=== PATIENT | male | born 1960 | race Caucasian/White ===

== ENCOUNTER 2016-12-09 09:50 | Emergency (ER) | payer MEDICARE ==
[2016-12-09] MEDS ORDERED: Albuterol/Ipratropium NEB.SOL* Albuterol 2.5 MG/Ipratropium 0.5 MG 3 ML INH ONE (10:18)
[2016-12-09 10:56] LABS: Hematocrit 47 % (42-52); Hemoglobin 15.7 g/dl (14.0-18.0); Mean Corpuscular HGB Conc 33 g/dl (31-36); Mean Corpuscular Hemoglobin 30 pg (27-31); Mean Corpuscular Volume 90 fL (80-94); Mean Platelet Volume 10 um3 (7.4-10.4); Red Blood Count 5.21 10^6/ul (4.0-5.4); Red Cell Distribution Width 14 % (10.5-15); White Blood Count 10.7 10^3/ul (3.5-10.8)
[2016-12-09 11:14] LABS: Albumin 4.1 g/dL (3.2-5.2); BUN/Creatinine Ratio 16.5 (8-20); Calcium 8.7 mg/dL (8.6-10.3); EGFR African American 111.2 (>60); EGFR Non-African American 86.5 (>60); Globulin 2.7 g/dL (2-4); Total Bilirubin 0.5 mg/dL (0.2-1.0); Total Protein 6.8 g/dL (6.4-8.9)
--- NOTE | 2016-12-09 11:17 | RAD ---
INDICATION: Cough COMPARISON: May 12, 2016 TECHNIQUE: PA and lateral dual-energy views were obtained. FINDINGS: Bones/Soft Tissues: There are no acute bony findings. Cardiomediastinal: The cardiomediastinal silhouette is normal. Lungs: There are no infiltrates. Pleura: There are no pleural effusions. Other: None IMPRESSION: NO ACTIVE DISEASE
[2016-12-09] MEDS ORDERED: Azithromycin TAB* 250 MG PO ONE (11:35)
[2016-12-09] MEDS ORDERED: predniSONE TAB* 20 MG PO ONE (11:35)
--- NOTE | 2016-12-09 11:35 | ED ---
Respiratory - HPI Summary HPI Summary: 56M w/ PMh of COPD presents with productive cough for 4 days. He states that he does not take any medication for his copd. He is prescribed an inhaler but he does like to use it. He admits to right sided chest pain and shortness of breath. He denies any fevers. He denies any muscle aches, abdominal pain, n/v/ d, or sinus congestion. He states that no one else is sick. - History of Current Complaint Chief Complaint: EDUpperRespComplaint Stated Complaint: SHORT OF BREATH, CHEST PAIN Time Seen by Provider: 12/09/16 10:10 Pain Intensity: 4 Sputum Amount: Moderate - Allergy/Home Medications Allergies/Adverse Reactions: Allergies Allergy/AdvReac Type Severity Reaction Status Date / Time No Known Allergies Allergy Verified 12/09/16 09:56 PMH/Surg Hx/FS Hx/Imm Hx Endocrine/Hematology History: Denies: Hx Diabetes, Hx Thyroid Disease Cardiovascular History: Reports: Hx Hypertension Respiratory History: Reports: Hx Chronic Bronchitis, Hx Chronic Obstructive Pulmonary Disease (COPD), Hx Pneumonia, Hx Seasonal Allergies, Hx Sleep Apnea - [place]-non compliant with CPAP Denies: Hx Asthma GI History: Reports: Hx Gastroesophageal Reflux Disease Denies: Hx Ulcer History: Denies: Hx Dialysis, Hx Renal Disease Musculoskeletal History: Reports: Hx Arthritis, Hx Back Problems - SPINAL INJ AND SURGICAL REPAIR 2011, Hx Orthopedic Injury, Hx Scoliosis, Hx Tendonitis - Elbow currently Sensory History: Reports: Hx Contacts or Glasses Opthamlomology History: Reports: Hx Contacts or Glasses Neurological History: Reports: Hx Spinal Cord Injury Psychiatric History: Reports: Hx Anxiety, Hx Depression, Hx Bipolar Disorder, Hx Suicide Attempt Denies: Hx of Violent Episodes Against Others - Surgical History Surgery Procedure, Year, and Place: fractured back; partial rotator cuff tear R shoulder; hernias (umbilical and groin) Hx Anesthesia Reactions: No Infectious Disease History: No Infectious Disease History: Reports: History Other Infectious Disease - Spinal Meningitis at age 24yrs Denies: Hx Hepatitis, Hx Human Immunodeficiency Virus (HIV), Traveled Outside the [place] in Last 30 Days - Family History Known Family History: Positive: None, Other - NONCONTRIBUTORY Negative: Cardiac Disease Family History: Diverticulitis(mother) - Social History Alcohol Use: Rare Hx Substance Use: No Substance Use Type: Reports: None Hx Tobacco Use: Yes Smoking Status (MU): Former Smoker Type: Cigarettes Have You Smoked in the Last Year: No Review of Systems Negative: Fever Positive: Chest Pain - right sided Positive: Shortness Of Breath, Cough Negative: Abdominal Pain, Vomiting, Diarrhea, Nausea All Other Systems Reviewed And Are Negative: Yes Physical Exam Triage Information Reviewed: Yes Vital Signs On Initial Exam: Initial Vitals Temp Pulse Resp BP Pulse Ox 98.5 F 80 18 133/79 99 12/09/16 09:56 12/09/16 09:56 12/09/16 09:56 12/09/16 09:56 12/09/16 09:56 Vital Signs Reviewed: Yes Appearance: Positive: Well-Appearing Skin: Positive: Warm, Dry Head/Face: Positive: Normal Head/Face Inspection Eyes: Positive: Normal, Conjunctiva Clear ENT: Positive: Normal ENT inspection, Pharynx normal, TMs normal Neck: Positive: Supple, Nontender, No Lymphadenopathy Respiratory/Lung Sounds: Positive: Breath Sounds Present, Wheezes - present, Other - no sign of consolidation on exam, reproducible chest pain on right side of chest Cardiovascular: Positive: Normal, RRR - Rodolfo Coma Scale Coma Scale Total: 15 Diagnostics - Vital Signs Vital Signs Temp Pulse Resp BP Pulse Ox 12/09/16 10:30 79 13 97 12/09/16 10:29 78 96 12/09/16 09:56 98.5 F 80 18 133/79 99 - Laboratory Lab Results: Lab Results 12/09/16 12/09/16 12/09/16 Range/Units 10:43 10:43 10:43 WBC 10.7 (3.5-10.8) 10^3/ul RBC 5.21 (4.0-5.4) 10^6/ul Hgb 15.7 (14.0-18.0) g/dl Hct 47 (42-52) % MCV 90 (80-94) fL MCH 30 (27-31) pg MCHC 33 (31-36) g/dl RDW 14 (10.5-15) % Plt Count 254 (150-450) 10^3/ul MPV 10 (7.4-10.4) um3 Neut % (Auto) 56.1 (38-83) % Lymph % (Auto) 29.0 (25-47) % [place] % (Auto) 11.9 H (1-9) % Eos % (Auto) 2.2 (0-6) % Baso % (Auto) 0.8 (0-2) % Absolute Neuts (auto) 6.0 (1.5-7.7) 10^3/ul Absolute Lymphs (auto) 3.1 (1.0-4.8) 10^3/ul Absolute Monos (auto) 1.3 H (0-0.8) 10^3/ul Absolute Eos (auto) 0.2 (0-0.6) 10^3/ul Absolute Basos (auto) 0.1 (0-0.2) 10^3/ul Absolute Nucleated RBC 0 10^3/ul Nucleated RBC % 0 D-Dimer, Quantitative (Less Than 230) ng/mL Sodium 136 (133-145) mmol/L Potassium 4.0 (3.5-5.0) mmol/L Chloride 104 (101-111) mmol/L Carbon Dioxide 25 (22-32) mmol/L Anion Gap 7 (2-11) mmol/L BUN 15 (6-24) mg/dL Creatinine 0.91 (0.67-1.17) mg/dL Est GFR ( Amer) 111.2 (>60) Est GFR (Non-Af Amer) 86.5 (>60) BUN/Creatinine Ratio 16.5 (8-20) Glucose 103 H (70-100) mg/dL Lactic Acid 1.4 (0.5-2.0) mmol/L Calcium 8.7 (8.6-10.3) mg/dL Total Bilirubin 0.50 (0.2-1.0) mg/dL AST 17 (13-39) U/L ALT 26 (7-52) U/L Alkaline Phosphatase 47 (34-104) U/L Troponin I 0.00 (<0.04) ng/mL Total Protein 6.8 (6.4-8.9) g/dL Albumin 4.1 (3.2-5.2) g/dL Globulin 2.7 (2-4) g/dL Albumin/Globulin Ratio 1.5 (1-3) // Range/Units 10:43 WBC (3.5-10.8) 10^3/ul RBC (4.0-5.4) 10^6/ul Hgb (14.0-18.0) g/dl Hct (42-52) % MCV (80-94) fL MCH (27-31) pg MCHC (31-36) g/dl RDW (10.5-15) % Plt Count (150-450) 10^3/ul MPV (7.4-10.4) um3 Neut % (Auto) (38-83) % Lymph % (Auto) (25-47) % [place] % (Auto) (1-9) % Eos % (Auto) (0-6) % Baso % (Auto) (0-2) % Absolute Neuts (auto) (1.5-7.7) 10^3/ul Absolute Lymphs (auto) (1.0-4.8) 10^3/ul Absolute Monos (auto) (0-0.8) 10^3/ul Absolute Eos (auto) (0-0.6) 10^3/ul Absolute Basos (auto) (0-0.2) 10^3/ul Absolute Nucleated RBC 10^3/ul Nucleated RBC % D-Dimer, Quantitative < 200 (Less Than 230) ng/mL Sodium (133-145) mmol/L Potassium (3.5-5.0) mmol/L Chloride (101-111) mmol/L Carbon Dioxide (22-32) mmol/L Anion Gap (2-11) mmol/L BUN (6-24) mg/dL Creatinine (0.67-1.17) mg/dL Est GFR ( Amer) (>60) Est GFR (Non-Af Amer) (>60) BUN/Creatinine Ratio (8-20) Glucose (70-100) mg/dL Lactic Acid (0.5-2.0) mmol/L Calcium (8.6-10.3) mg/dL Total Bilirubin (0.2-1.0) mg/dL AST (13-39) U/L ALT (7-52) U/L Alkaline Phosphatase (34-104) U/L Troponin I (<0.04) ng/mL Total Protein (6.4-8.9) g/dL Albumin (3.2-5.2) g/dL Globulin (2-4) g/dL Albumin/Globulin Ratio (1-3) Result Diagrams: 12/09/16 10:43 12/09/16 10:43 Lab Statement: Any lab studies that have been ordered have been reviewed, and results considered in the medical decision making process. - Radiology chest Xray Interpretation: No Acute Changes Radiology Interpretation Completed By: Radiologist - EKG No standard instances Cardiac Rate: NL EKG Rhythm: Sinus Rhythm ST Segment: Normal Re-Evaluation - Re-Evaluation First Eval Change: Improved Comment: lungs CTA s/p breathing treatment Disposition - Course Course Of Treatment: 56M presents with sough, right sided chest pain, and SOB. He does not take anything for his COPD. no fevers. on exam chest tenderness to right side is reproducible, lungs wheezes present. on chest xray normal. EKG normal. labs normal. d-dimer normal. will treat as COPD exacerbation, will treat with prednisone and zpack and told to use inhalers that patient has at home. patient understands and agrees with plan - Differential Dx - Cardiopulmonary Differential Diagnoses - Cardiopulmonary: Bronchitis, Exacerbation Of COPD, Lower Resp Infection, Pulmonary Embolism - Diagnoses Provider Diagnoses: COPD exacerbation, Bronchitis Discharge - Discharge Plan Condition: Good Disposition: HOME Prescriptions: Azithromycin TAB* [Zithromax TAB (Z-VINI) 250 mg #6 tabs] 250 mg PO DAILY #4 tab predniSONE TAB* [Deltasone TAB*] 40 mg PO DAILY #4 tab Patient Education Materials: Acute Bronchitis (ED) Referrals: Guzman Bowman MD [Primary Care Provider] - Additional Instructions: Use inhaler every 4 hours for cough and wheezing Take steroid once a day for 5 days, first dose given in ED Take antibiotic first dose starting tomorrow for 4 days Take Tylenol or ibuprofen for pain every 6 hours Return to ED if develop severe shortness of breath, worsening chest pain, or any new or worsening symptoms
[2016-12-09 12:30] VITALS: BP 116/63
== END 2016-12-09 12:29 | disposition home or self-care (01) ==
LOC: ED 09:50
DX: J44.1 Chronic obstructive pulmonary disease with (acute) exacerbation (principal); J40 Bronchitis, not specified as acute or chronic; R05 Cough; R06.02 Shortness of breath; Z87.891 Personal history of nicotine dependence; R07.9 Chest pain, unspecified
CPT/HCPCS: 36415; 71020; 80053; 83605; 84484; 85025; 85379; 93005; 94640; 94760; 99283; A9270-GY

== ENCOUNTER 2017-06-22 11:31 | Inpatient (IN) | payer MEDICARE ==
[2017-06-22 15:11] LABS: Hematocrit 46 % (42-52); Hemoglobin 15.6 g/dl (14.0-18.0); Mean Corpuscular HGB Conc 34 g/dl (31-36); Mean Corpuscular Hemoglobin 31 pg (27-31); Mean Corpuscular Volume 92 fL (80-94); Red Blood Count 4.99 10^6/ul (4.0-5.4); Red Cell Distribution Width 14 % (10.5-15); White Blood Count 17.2 10^3/ul (3.5-10.8)
[2017-06-22 15:15] LABS: Comments Flag Yes
[2017-06-22 15:16] LABS: Add Diff/Slide Review? Slide Review Added
[2017-06-22 15:17] LABS: Troponin I 0.01 ng/mL (<0.04)
[2017-06-22] MEDS ORDERED: NS 0.9% 1000 ML* 1,000 ML IV ONE (15:59)
[2017-06-22 16:00] LABS: ALT 20 U/L (7-52); AST 15 U/L (13-39); Albumin 4.3 g/dL (3.2-5.2); Alkaline Phosphatase 46 U/L (34-104); Amylase 23 U/L (29-103); Anion Gap 9 mmol/L (2-11); BUN/Creatinine Ratio 15.4 (8-20); Blood Urea Nitrogen 14 mg/dL (6-24); C Reactive Protein 142.61 mg/L (< 5.00); CO2 Carbon Dioxide 23 mmol/L (22-32); Calcium 8.9 mg/dL (8.6-10.3); Chloride 105 mmol/L (101-111); EGFR African American 111.2 (>60); EGFR Non-African American 86.5 (>60); Globulin 2.9 g/dL (2-4); Glucose 87 mg/dL (70-100); Lipase < 10 U/L (11.0-82.0); Sodium 137 mmol/L (133-145); Total Protein 7.2 g/dL (6.4-8.9)
[2017-06-22] MEDS ORDERED: Morphine INJ* 4 MG/ML 1 ML CARPUJECT IV ONE ×2 (16:00→21:45)
[2017-06-22 16:33] LABS: Immature Granulocytes 14 % (0-9); Metamyelocytes % 5 % (0-2); Neutrophil % 74 % (38-83); RBC Morphology Normal (Normal)
--- NOTE | 2017-06-22 16:38 | RAD ---
INDICATION: Cough. COMPARISON: Comparison is made with a prior chest x-ray study from December 09, 2016. TECHNIQUE: A portable view of the chest was obtained. FINDINGS: Cardiac and mediastinal contours appear to be within normal limits. The lungs are underinflated. There are linear densities at both lung bases suggestive of atelectasis. No pleural effusion is seen. IMPRESSION: LINEAR DENSITIES AT BOTH LUNG BASES MOST CONSISTENT WITH ATELECTASIS.
[2017-06-22 16:48] LABS: Mean Platelet Volume 11 um3 (7.4-10.4)
[2017-06-22 17:12] LABS: Urine Bilirubin Negative (Negative); Urine Glucose Negative (Negative); Urine Nitrite Negative (Negative)
[2017-06-22] MEDS ORDERED: Iohexol 300* (CONTRAST) 10 ML SDV IV ONE (17:18)
--- NOTE | 2017-06-22 18:48 | RAD ---
INDICATION: Left upper quadrant abdominal pain. COMPARISON: Comparison is made with a prior CT of the abdomen and pelvis from June 16, 2016. TECHNIQUE: A CT scan of the abdomen and pelvis was performed with intravenous and oral contrast following intravenous injection of 150 ml of Omnipaque 300 nonionic contrast. Contiguous axial sections were obtained from the lung bases through the symphysis pubis. Images were reconstructed in the coronal and sagittal planes. FINDINGS: There is mild dependent bilateral lower lobe subsegmental atelectasis. No pleural effusion is present. The liver and spleen are normal in size. The liver is decreased in attenuation consistent with fatty infiltration. No significant focal abnormality is seen. No calcified gallstones are noted. The pancreas appears to be within normal limits. The kidneys and adrenal glands are normal in size. No hydronephrosis is seen. No significant focal renal abnormality is seen. The aorta is normal in caliber and demonstrates homogeneous contrast opacification. There is a filter within the infrarenal portion of the inferior vena cava. Several of the struts may extend beyond the confines of the wall of the vena cava and appear unchanged. No significant enlarged retroperitoneal lymph nodes are seen. The stomach, small and large bowel appear nondistended. The appendix is not well visualized. There is mild to moderate descending and sigmoid diverticulosis. There is thickening of the wall of the descending colon with stranding in the adjacent mesenteric fat and a small amount of adjacent free intraperitoneal fluid. These findings are nonspecific although most consistent with diverticulitis. No abscess is seen. No free intraperitoneal air is seen. The patient is status post posterior spinal fusion from the T12 through the L4 levels stabilizing a fracture of the L2 vertebral body which is unchanged from the prior study. IMPRESSION: 1. THICKENING OF THE WALL OF THE DESCENDING COLON, INTERSTITIAL STRANDING IN THE ADJACENT MESENTERIC FAT AND FREE INTRAPERINEAL FLUID NONSPECIFIC ALTHOUGH MOST CONSISTENT WITH DIVERTICULITIS. RECOMMEND CLINICAL CORRELATION. 2. HEPATIC STEATOSIS.
--- NOTE | 2017-06-22 19:17 | ED ---
Everett Benson SooYoung, scribed for Tony Carmen MD on 06/22/17 at 1602 . Abdominal Pain/Male - HPI Summary HPI Summary: A 56 y/o M presents to ED with L-sided abd pain onset approx 3 days ago. Pain rated as 8 out of 10. Associated sx: fever, nonproductive cough, diarrhea. Denies: n/v, dysuria. Aggravating factors: deep breaths, ambulation. Pert PMHx: diverticulitis. Former smoker, no ETOH. SHx: back, hernia, shoulder. NKA. - History of Current Complaint Chief Complaint: EDAbdPain Stated Complaint: LT SIDED PAIN/SOB Time Seen by Provider: 06/22/17 15:56 Hx Obtained From: Patient Onset/Duration: Gradual Onset, Lasting Days, Still Present Timing: Constant Severity Initially: Moderate Severity Currently: Severe Pain Intensity: 10 Pain Scale Used: 0-10 Numeric Location: Discrete At: LUQ, Discrete At: LLQ Aggravating Factor(s): Movement - ambulation, Deep Breaths Associated Signs And Symptoms: Positive: Fever, Cough, Diarrhea. Negative: Urinary Symptoms, Nausea, Vomiting - Allergies/Home Medications Allergies/Adverse Reactions: Allergies Allergy/AdvReac Type Severity Reaction Status Date / Time No Known Allergies Allergy Verified 12/09/16 09:56 PMH/Surg Hx/FS Hx/Imm Hx Previously Healthy: No Endocrine/Hematology History: Denies: Hx Diabetes, Hx Thyroid Disease Cardiovascular History: Reports: Hx Hypertension Respiratory History: Reports: Hx Chronic Bronchitis, Hx Chronic Obstructive Pulmonary Disease (COPD), Hx Pneumonia, Hx Seasonal Allergies, Hx Sleep Apnea - [place]-non compliant with CPAP Denies: Hx Asthma GI History: Reports: Hx Gastroesophageal Reflux Disease Denies: Hx Ulcer History: Denies: Hx Dialysis, Hx Renal Disease Musculoskeletal History: Reports: Hx Arthritis, Hx Back Problems - SPINAL INJ AND SURGICAL REPAIR 2011, Hx Orthopedic Injury, Hx Scoliosis, Hx Tendonitis - Elbow currently Sensory History: Reports: Hx Contacts or Glasses Opthamlomology History: Reports: Hx Contacts or Glasses Neurological History: Reports: Hx Spinal Cord Injury Psychiatric History: Reports: Hx Anxiety, Hx Depression, Hx Bipolar Disorder, Hx Suicide Attempt Denies: Hx of Violent Episodes Against Others - Surgical History Surgery Procedure, Year, and Place: fractured back; partial rotator cuff tear R shoulder; hernias (umbilical and groin) Hx Anesthesia Reactions: No Infectious Disease History: Yes Infectious Disease History: Reports: History Other Infectious Disease - Spinal Meningitis at age 24yrs Denies: Hx Hepatitis, Hx Human Immunodeficiency Virus (HIV), Traveled Outside the [place] in Last 30 Days - Family History Known Family History: Positive: Other Negative: Cardiac Disease Family History: Diverticulitis(mother) - Social History Occupation: Employed Full-time, Disabled Lives: With Family Alcohol Use: Rare Hx Substance Use: No Substance Use Type: Reports: None Hx Tobacco Use: Yes Smoking Status (MU): Former Smoker Type: Cigarettes Have You Smoked in the Last Year: No Review of Systems Positive: Fever Positive: Cough Positive: Abdominal Pain, Diarrhea. Negative: Vomiting, Nausea Negative: dysuria All Other Systems Reviewed And Are Negative: Yes Physical Exam Triage Information Reviewed: Yes Vital Signs On Initial Exam: Initial Vitals Temp Pulse Resp BP Pulse Ox 98.8 F 92 20 144/77 97 06/22/17 11:43 06/22/17 11:43 06/22/17 11:43 06/22/17 11:43 06/22/17 11:43 Vital Signs Reviewed: Yes Appearance: Positive: Pain Distress Skin: Positive: Warm, Skin Color Reflects Adequate Perfusion Head/Face: Positive: Normal Head/Face Inspection ENT: Positive: Normal ENT inspection Neck: Positive: Nontender Respiratory/Lung Sounds: Positive: Clear to Auscultation, Breath Sounds Present Cardiovascular: Positive: RRR. Negative: Murmur Abdomen Description: Positive: Other: - tender in the left upper abdomen. Negative: Distended Musculoskeletal: Positive: Strength/ROM Intact Neurological: Positive: Sensory/Motor Intact, Alert, Oriented to Person Place, Time, CN Intact II-III Psychiatric: Positive: Normal - Rodolfo Coma Scale Best Eye Response: 4 - Spontaneous Best Motor Response: 6 - Obeys Commands Best Verbal Response: 5 - Oriented Diagnostics - Vital Signs Vital Signs Temp Pulse Resp BP Pulse Ox 06/22/17 15:16 99.5 F 76 20 134/69 99 06/22/17 12:40 100.6 F 84 24 127/68 95 06/22/17 11:43 98.8 F 92 20 144/77 97 - Laboratory Lab Results: Lab Results 06/22/17 06/22/17 Range/Units 14:28 14:28 WBC 17.2 H (3.5-10.8) 10^3/ul RBC 4.99 (4.0-5.4) 10^6/ul Hgb 15.6 (14.0-18.0) g/dl Hct 46 (42-52) % MCV 92 (80-94) fL MCH 31 (27-31) pg MCHC 34 (31-36) g/dl RDW 14 (10.5-15) % Plt Count Pending MPV Pending Neut % (Auto) 77.8 (38-83) % Lymph % (Auto) 12.6 L (25-47) % [place] % (Auto) 7.9 (1-9) % Eos % (Auto) 1.1 (0-6) % Baso % (Auto) 0.6 (0-2) % Absolute Neuts (auto) 13.4 H (1.5-7.7) 10^3/ul Absolute Lymphs (auto) 2.2 (1.0-4.8) 10^3/ul Absolute Monos (auto) 1.4 H (0-0.8) 10^3/ul Absolute Eos (auto) 0.2 (0-0.6) 10^3/ul Absolute Basos (auto) 0.1 (0-0.2) 10^3/ul Absolute Nucleated RBC 0.02 10^3/ul Nucleated RBC % 0.1 Sodium Pending Potassium Pending Chloride Pending Carbon Dioxide Pending Anion Gap Pending BUN Pending Creatinine Pending Est GFR ( Amer) Pending Est GFR (Non-Af Amer) Pending BUN/Creatinine Ratio Pending Glucose Pending Calcium Pending Total Bilirubin Pending AST Pending ALT Pending Alkaline Phosphatase Pending Troponin I 0.01 (<0.04) ng/mL C-Reactive Protein Pending Total Protein Pending Albumin Pending Globulin Pending Albumin/Globulin Ratio Pending Amylase Pending Lipase Pending Result Diagrams: 06/22/17 14:28 06/22/17 14:28 Lab Statement: Any lab studies that have been ordered have been reviewed, and results considered in the medical decision making process. - Radiology CXR Xray Interpretation: Positive (See Comments) - IMPRESSION: LINEAR DENSITIES AT BOTH LUNG BASES MOST CONSISTENT WITH ATELECTASIS. ED physician has reviewed this radiology report and agrees. Radiology Interpretation Completed By: Radiologist - CT A/P CT CT Interpretation: Positive (See Comments) - IMPRESSION: 1. THICKENING OF THE WALL OF THE DESCENDING COLON, INTERSTITIAL STRANDING IN THE ADJACENT MESENTERIC FAT AND FREE INTRAPERINEAL FLUID NONSPECIFIC ALTHOUGH MOST CONSISTENT WITH DIVERTICULITIS. RECOMMEND CLINICAL CORRELATION. 2. HEPATIC STEATOSIS. ED physician has reviewed this radiology report and agrees. CT Interpretation Completed By: Radiologist Abdominal Pain Fem Course/Dx - Course Course Of Treatment: A 56 y/o M presents with L-sided abd pain onset approx 3 days ago. Pain rated as 8/10. Associated sx: fever, nonproductive cough, diarrhea. Denies: n/v, dysuria. Aggravating factors: deep breaths, ambulation. Pert PMHx: diverticulitis. Former smoker, no ETOH. Bloodwork is without significant abnormality except WBC is 17.2, CRP is 142.61. UA results are negative for infection. CXR shows "LINEAR DENSITIES AT BOTH LUNG BASES MOST CONSISTENT WITH ATELECTASIS." A/P CT shows "1. THICKENING OF THE WALL OF THE DESCENDING COLON, INTERSTITIAL STRANDING IN THE ADJACENT MESENTERIC FAT AND FREE INTRAPERINEAL FLUID NONSPECIFIC ALTHOUGH MOST CONSISTENT WITH DIVERTICULITIS. RECOMMEND CLINICAL CORRELATION. 2. HEPATIC STEATOSIS.". Dr Cotter consulted from general surgery and I have asked him to see and consult on the patient. The hospitalists has been told about this admission as well and they will see the patient. - Diagnoses Provider Diagnoses: Diverticulitis large intestine - Provider Notifications Discussed Care Of Patient With: Maikol Saavedra - surgery Time Discussed With Above Provider: 19:00 Discharge - Discharge Plan Condition: Good Disposition: ADMITTED TO [facility] The documentation as recorded by the Everett hoyos SooYoung accurately reflects the service I personally performed and the decisions made by me, Tony Carmen MD.
[2017-06-22] MEDS ORDERED: Ondansetron INJ* 2 MG/ML VIAL IV PRN (21:41)
[2017-06-22] MEDS ORDERED: Morphine INJ* 4 MG/ML 1 ML CARPUJECT IV PRN (21:41)
[2017-06-22] MEDS ORDERED: Zosyn per Pharmacy* NOTE FOLLOW UP SCH (22:00)
[2017-06-22] MEDS: Enoxaparin(*) 40 MG/0.4 ML SYR SUBCUT SCH (22:40)
[2017-06-22] MEDS: NS 0.9% 1000 ML* 1,000 ML IV SCH (22:41)
--- NOTE | 2017-06-22 23:41 | HP ---
CC: Dr. Bowman* HISTORY AND PHYSICAL: DATE OF ADMISSION: 06/22/17 PRIMARY CARE PROVIDER: Dr. Bowman. ADMITTING PROVIDER: ASHLEY Frausto SUPERVISING PHYSICIAN: Dr. Ac Cortez* (dictated by ASHLEY Frausto). CHIEF COMPLAINT: Abdominal pain. HISTORY OF PRESENT ILLNESS: This is a 56-year-old gentleman with a history of obstructive sleep apnea, COPD, hypertension, chronic back pain, GERD, and restless leg syndrome who presented to the emergency department with complaints of abdominal pain. The patient states that his symptoms have been persistent for the last 3 days or so. He reports that most of his pain is left-sided and worse with deep inspiration. He thinks that he has been running fevers at home. He has chronic diarrhea, which has not changed over the last few days. His appetite has remained good and no nausea or vomiting. The patient was admitted with acute diverticulitis almost exactly 1 year ago. The patient denies any other recent illness, denies chest pain, shortness of breath, cough. PAST MEDICAL HISTORY: 1. COPD. 2. Obstructive sleep apnea, compliant with CPAP. 3. Hypertension. 4. Chronic back pain. 5. GERD. 6. Restless leg syndrome. PAST SURGICAL HISTORY: 1. Rotator cuff repair. 2. Inguinal hernia repair. 3. Umbilical hernia repair. HOME MEDICATIONS: 1. Cymbalta 20 mg p.o. twice daily. 2. Gabapentin 300 mg p.o. at bedtime. 3. Requip 1 mg p.o. at bedtime. SOCIAL HISTORY: The patient lives at home with his . He quit smoking in 1996, unsure of how many pack-year history he has. He reports only rare alcohol consumption. REVIEW OF SYSTEMS: As noted above in HPI, all other systems reviewed and negative. PHYSICAL EXAMINATION GENERAL: This is a middle aged gentleman, in no acute distress, lying in hospital stretcher, accompanied by his . VITAL SIGNS: Temperature 98.8 degrees Fahrenheit, pulse 92 beats per minute, respiratory rate 20 per minute, oxygen saturation 97% on room air, blood pressure 144/77 mmHg. Of note, maximum temperature in the emergency department was 100.6 degrees Fahrenheit. HEENT: Head is normocephalic, atraumatic. Mucous membranes are pink and moist. RESPIRATORY: Lungs are clear to auscultation without wheezes, crackles or rhonchi. CARDIOVASCULAR: Heart has a regular rate and rhythm without murmurs, rubs, or gallops. ABDOMEN: Abdomen is soft, tender to palpation on the left side. No peritoneal signs. EXTREMITIES: No edema noted. PSYCH: The patient is alert and appropriately oriented. LABORATORY EVALUATION: CBC shows white blood cell count of 17,200, hemoglobin of 15.6 g/dL, and a platelet count of 245,000. Comprehensive metabolic panel is unremarkable with sodium of 137 mmol/L, potassium of 4.0, bicarb of 23, BUN 14, creatinine 0.9. Total bilirubin and transaminases within normal limits. CRP significantly elevated at 142. Troponin 0.01. Urinalysis is negative. IMAGING: Chest x-ray shows no acute process. CT of the abdomen and pelvis shows thickening of the wall of the descending colon as well as interstitial stranding in the adjacent mesenteric fat and free intraperitoneal fluid most consistent with diverticulitis, also noted hepatic steatosis. ASSESSMENT AND PLAN: This is a 56-year-old gentleman with history of chronic obstructive pulmonary disease, obstructive sleep apnea, hypertension, chronic back pain, gastroesophageal reflux disease, and restless leg syndrome, presented with complaints of abdominal pain and evidence of acute diverticulitis on CT. 1. Acute diverticulitis - this is patient's second hospital admission for acute diverticulitis. The first was almost exactly one year ago. He has been started on Zosyn in the emergency room, which will be continued at this time. No evidence of associated perforation or abscess. There is no free fluid appreciated within the abdominal cavity. No peritoneal signs appreciated on exam. In addition to antibiotics, the patient will be treated with p.r.n. analgesics and antiemetics. We will start with liquid diet and advance as tolerated. 2. Chronic obstructive pulmonary disease - no acute exacerbation and the patient's symptom seems to be mild. 3. Obstructive sleep apnea. Continue CPAP. 4. Hypertension. The patient has stopped all of his home anti-hypertensive medications I believe under the guidance of his primary care provider and appears to be normotensive in the emergency department. We will continue to monitor this. 5. Chronic back pain. The patient states that he does not take any home opiate medications. 6. Gastroesophageal reflux disease. 7. Restless leg syndrome. 8. Code status. The patient is full code. 9. DVT prophylaxis. The patient will be started on subcu Lovenox. 10. Healthcare proxy is his . DISPOSITION: The patient is being admitted to inpatient status with acute diverticulitis with an expected length of stay to be greater than 2 midnights. ASHLEY FRAUSTO [id number]/[facility] #: [id number]
[2017-06-23] MEDS: HYDROmorphone INJ* 1 MG/ML CARPUJECT SYRINGE IV PRN ×3 (00:52→06:25)
[2017-06-23] MEDS: ZOSYN 3.375 GM Q8H per EXTENDED INFUSION IVPB SCH ×6 (03:16→17:48)
[2017-06-23 07:07] LABS: Hematocrit 43 % (42-52); Hemoglobin 14.3 g/dl (14.0-18.0); Mean Corpuscular HGB Conc 34 g/dl (31-36); Mean Corpuscular Hemoglobin 31 pg (27-31); Mean Corpuscular Volume 92 fL (80-94); Mean Platelet Volume 11 um3 (7.4-10.4); Red Blood Count 4.62 10^6/ul (4.0-5.4); Red Cell Distribution Width 14 % (10.5-15); White Blood Count 13.7 10^3/ul (3.5-10.8)
[2017-06-23 07:21] LABS: BUN/Creatinine Ratio 13.8 (8-20); Calcium 8.2 mg/dL (8.6-10.3); EGFR African American 107.2 (>60); EGFR Non-African American 83.3 (>60); Potassium 4.1 mmol/L (3.5-5.0)
[2017-06-23] MEDS: DULoxetine DR CAP* 20 MG CAP.DR PO SCH ×2 (08:38→22:10)
[2017-06-23] MEDS ORDERED: Influenza VAC *QUAD* 2017-18* 0.5 ML SYRINGE IM ONE (09:00)
--- NOTE | 2017-06-23 14:10 | PN ---
Subjective Date of Service: 06/23/17 Interval History: Patient seen and examined at bedside. Patient states pain only slightly improved. Patient denies nausea. Leukocytosis improved and afebrile for last 12 hours. Tolerating full liquid without nausea or worsening pain. Family History: Unchanged from Admission Social History: Unchanged from Admission Past Medical History: Unchanged from Admission Objective Active Medications: Duloxetine HCl (Cymbalta Cap*) 20 mg PO BID YAIMA Enoxaparin Sodium (Lovenox(*)) 40 mg SUBCUT Q24H YAIMA Hydromorphone HCl (Dilaudid Inj*) 0.5 mg IV Q2H PRN Sodium Chloride (Ns 0.9% 1000 Ml*) 1,000 mls @ 75 mls/hr IV PER RATE YAIMA Piperacillin Sod/Tazobactam (Sod 3.375 gm/ Sodium Chloride) 100 mls @ 25 mls/ hr IVPB Q8H YAIMA Ondansetron HCl (Zofran Inj*) 4 mg IV Q4H PRN Pharmacy Consult (Zosyn Per Pharmacy*) 1 note FOLLOW UP .ZOSYN PER PHARMACY YAIMA Ropinirole HCl (Requip Tab*) 1 mg PO QPM [facility] 06/23/17 06/23/17 06/23/17 07:25 08:00 09:18 Temperature 97.1 F Pulse Rate 72 Respiratory 18 16 16 Rate Blood Pressure 105/57 (mmHg) O2 Sat by Pulse 94 Oximetry Oxygen Devices in Use Now: None Appearance: sitting up in bed, NAD Eyes: No Scleral Icterus, PERRLA Ears/Nose/Mouth/Throat: NL Teeth, Lips, Gums, Mucous Membranes Moist Neck: NL Appearance and Movements; NL JVP Respiratory: Symmetrical Chest Expansion and Respiratory Effort, Clear to Auscultation Cardiovascular: NL Sounds; No Murmurs; No JVD Abdominal: - - slightly distended, pain to LUQ, +BS Extremities: No Edema Skin: No Rash or Ulcers Neurological: Alert and Oriented x 3, NL Muscle Strength and Tone Lines/Tubes/Other Access: Clean, Dry and Intact Peripheral IV Nutrition: Taking PO's Result Diagrams: 06/23/17 05:52 06/23/17 05:52 Assess/Plan/Problems-Billing Patient is a 56 y/o M w/ PMH significant for COPD, HTN, back pain, restless leg syndrome who presented to the ER w/ the c/o of abdominal pain and fever found to have leukocytosis and diverticulitis. - Patient Problems (1) Diverticulitis Comment: Pain only slightly improved. Maintain on full liquids and advance in AM to low residue. Continue IV Zosyn. Leukocytosis improved but not resolved. Repeat in AM. (2) COPD (chronic obstructive pulmonary disease) Comment: Currently not in acute exacerbation. (3) Hypertension Comment: Normotensive off medications. (4) SALVADOR (obstructive sleep apnea) Comment: Home CPAP (5) Restless leg syndrome Comment: Continue Requip. (6) DVT prophylaxis Comment: SQ Lovenox (7) Full code status Status and Disposition: Inpatient for diverticultis. Plan to advance to regular diet in AM and d/c home if tolerated.
[2017-06-23] MEDS: NS 0.9% 1000 ML* 1,000 ML IV SCH (17:48)
[2017-06-23] MEDS ORDERED: rOPINIRole TAB* 1 MG PO SCH (18:00)
[2017-06-23] MEDS: Enoxaparin(*) 40 MG/0.4 ML SYR SUBCUT SCH (22:10)
[2017-06-24] MEDS: ZOSYN 3.375 GM Q8H per EXTENDED INFUSION IVPB SCH ×4 (03:13→11:08)
[2017-06-24] MEDS: DULoxetine DR CAP* 20 MG CAP.DR PO SCH (08:34)
[2017-06-24 09:39] LABS: Hematocrit 45 % (42-52); Hemoglobin 15.1 g/dl (14.0-18.0); Mean Corpuscular HGB Conc 34 g/dl (31-36); Mean Corpuscular Hemoglobin 31 pg (27-31); Mean Corpuscular Volume 93 fL (80-94); Mean Platelet Volume 10 um3 (7.4-10.4); Red Blood Count 4.84 10^6/ul (4.0-5.4); Red Cell Distribution Width 13 % (10.5-15); White Blood Count 7.9 10^3/ul (3.5-10.8)
[2017-06-24] MEDS ORDERED: metroNIDAZOLE TAB* 250 MG PO SCH (14:00)
--- NOTE | 2017-06-24 14:55 | DS ---
CC: Dr. Bowman DISCHARGE SUMMARY: DATE OF ADMISSION: 06/22/17 DATE OF DISCHARGE: 06/24/17 PRIMARY CARE PHYSICIAN: Dr. Bowman. ADMITTING PROVIDER: ASHLEY Zelaya DISCHARGING PROVIDER: Virginie Haney DO PRIMARY DISCHARGE DIAGNOSIS: Acute diverticulitis. SECONDARY DIAGNOSES: 1. Chronic obstructive pulmonary disease. 2. Obstructive sleep apnea. 3. Hypertension. 4. Chronic back pain. 5. Gastroesophageal reflux disease. 6. Restless leg syndrome. MEDICATIONS: New medications at discharge: 1. Metronidazole 500 mg p.o. t.i.d. for 5 more days. 2. Ciprofloxacin 500 mg b.i.d. p.o. for 5 more days. 3. Oxycodone 5 mg p.o. q.4 p.r.n. pain. REVIEW OF SYSTEMS: A 14-point review of systems on the day of discharge was negative except for mil d left lower quadrant discomfort. He has been afebrile and tolerating a full diet. PHYSICAL EXAMINATION: Temperature 98.1 degrees, heart rate 61, respiratory rate 16, pulse ox 92% on room air, blood pressure 130/69. General: Alert, well appearing, no distress. HEENT: Pupils equ al, round, and reactive to light. No nystagmus. Moist mucosa. Neck: No lymphadenopathy. Thyroid nonpalpable. No JVP. Chest: Regular rate and rhythm. No murmurs. PMI nondisplaced. Lungs are clear bilaterally. Abdomen: Obese, nondistended, mildly tender to deep palpation in the left lower quadrant without guarding or rebound. Liver nonpalpable. Bowel sounds normoactive. Extremities: No lower extremity edema. Pulses 2+ bilaterally. Strength 5+ throughout. LABORATORY DATA: Labs at discharge; white blood cell 7.9, hemoglobin 15.1, platelets 159,000. HOSPITAL COURSE BY PROBLEM: 1. Acute diverticulitis. He was unable to take p.o. at admission, so he was admitted for IV antibi otics. He was treated with pip-tazo for 2 days and on 06/24/17, his diet was able to be advanced to a full diet, which he tolerated well. His pain was controlled, so he was discharged on p.o. antibio tics with ciprofloxacin and metronidazole for a total of 7-day course and oxycodone p.r.n. pain. 2. Hypertension. Blood pressure was well controlled during this admission on his home medications. No changes were made. 3. Obstructive sleep apnea. Continue CPAP at home settings. 4. Restless leg syndrome. He was continued on his home dose of ropinirole. 5. Disposition. The patient is full code and instructed to follow up with his primary care jh crowell upon discharge. TIME SPENT: Greater than 60 minutes were spent on this hospital discharge with greater than half of the time spent [facility] with the patient. [id number]/[facility] #: [id number]
[2017-06-24 16:18] VITALS: BP 122/68
[2017-06-24] MEDS ORDERED: Ciprofloxacin TAB* 500 MG PO SCH (21:00)
== END 2017-06-24 17:10 | disposition home or self-care (01) | DRG 392 ==
LOC: ED 11:31 → SSU 19:22
PROVIDERS: ADMIT Hospitalist; ATTEND Internal Medicine
PROC: 3E0234Z Introduction of Serum, Toxoid and Vaccine into Muscle, Percutaneous Approach (ICD-10-PCS; principal; 2017-06-23)
DX: K57.32 Diverticulitis of large intestine without perforation or abscess without bleeding (principal); M41.9 Scoliosis, unspecified; I10 Essential (primary) hypertension; J44.9 Chronic obstructive pulmonary disease, unspecified; G47.33 Obstructive sleep apnea (adult) (pediatric); G89.29 Other chronic pain; M54.9 Dorsalgia, unspecified; K21.9 Gastro-esophageal reflux disease without esophagitis; G25.81 Restless legs syndrome; K52.9 Noninfective gastroenteritis and colitis, unspecified; J30.2 Other seasonal allergic rhinitis; M19.90 Unspecified osteoarthritis, unspecified site; F41.9 Anxiety disorder, unspecified; R40.2362 Coma scale, best motor response, obeys commands, at arrival to emergency department; R40.2142 Coma scale, eyes open, spontaneous, at arrival to emergency department; R40.2252 Coma scale, best verbal response, oriented, at arrival to emergency department; F31.9 Bipolar disorder, unspecified; Z91.5 Personal history of self-harm; Z91.19 Patient's noncompliance with other medical treatment and regimen; Z87.01 Personal history of pneumonia (recurrent); Z87.891 Personal history of nicotine dependence; Z83.79 Family history of other diseases of the digestive system; Z23 Encounter for immunization
CPT/HCPCS: 36415; 71010; 74177; 80048; 80053; 81003; 82150; 83690; 84484; 85025; 86140; 87040; 90686; A9270-GY; J1170; J1650; J2270; J2543; Q9967

== ENCOUNTER 2017-11-06 13:43 | Observation (INO) | payer MEDICARE ==
[2017-11-06] MEDS ORDERED: LORazepam INJ* 2 MG/ML 1 ML VIAL IV ONE (13:52)
--- NOTE | 2017-11-06 14:28 | RAD ---
HISTORY: Right hip trauma, pain COMPARISONS: None VIEWS: 3, Frontal view of the pelvis with frontal and frog-leg views of the right hip FINDINGS: BONE DENSITY: Normal. BONES: There is no displaced fracture. JOINTS: There is mild osteoarthritis of the right hip. ALIGNMENT: There is no dislocation. SOFT TISSUES: Unremarkable. OTHER FINDINGS: The patient is status post spinal fusion. IMPRESSION: NO RADIOGRAPHIC EVIDENCE FOR HIP FRACTURE. X-RAYS MAY BE NEGATIVE WITH NONDISPLACED HIP FRACTURE, IF THERE IS PERSISTENT CLINICAL CONCERN, RECOMMEND CONSIDERATION OF MRI. IN THE SETTING OF CONTRAINDICATION TO MRI OR LIMITATION IN EMERGENT ACCESS TO MRI, CT WOULD BE SUGGESTED.
--- NOTE | 2017-11-06 14:33 | RAD ---
HISTORY: Fall, right hip pain COMPARISONS: MRI dated May 25, 2011, CT of the abdomen and pelvis dated June 22, 2017 TECHNIQUE: Multiple contiguous axial CT scans were obtained of the lumbar spine without intravenous contrast, with coronal and sagittal multiplanar reformations. FINDINGS: SPINAL CANAL: Evaluation of the central canal is limited on CT technique; however, there is no obvious canalicular mass or epidural hemorrhage. ALIGNMENT: There is a scoliotic curvature of the spine. VERTEBRAL BODIES: The patient is status post laminectomy and spinal fusion. There is a chronic compression deformity of L2 with osseous retropulsion. A vertebral body cage is noted at L2. There are pedicle screws at T12, L1, L3, and L4. There is no hardware failure or osteolysis bone graft material is noted along the facet joints. JOINTS: There is fusion across the facet joints. MUSCULATURE: Unremarkable INTERVERTEBRAL DISCS: There is diffuse loss of intervertebral disc height throughout the spine. AXIAL IMAGES: There is no osseous neural foraminal area or central canal stenosis. SOFT TISSUES: An IVC filter is noted OTHER: None IMPRESSION: POSTSURGICAL CHANGE. NO ACUTE OSSEOUS INJURY TO THE LUMBAR SPINE.
[2017-11-06] MEDS ORDERED: Ondansetron INJ* 2 MG/ML VIAL IV ONE (14:50)
[2017-11-06] MEDS ORDERED: NS 0.9% 1000 ML* 1,000 ML IV ONE (14:50)
[2017-11-06 15:10] LABS: Hematocrit 46 % (42-52); Hemoglobin 15.8 g/dl (14.0-18.0); Mean Corpuscular HGB Conc 34 g/dl (31-36); Mean Corpuscular Hemoglobin 31 pg (27-31); Mean Corpuscular Volume 91 fL (80-94); Mean Platelet Volume 10 um3 (7.4-10.4); Platelet Count 274 10^3/ul (150-450); Red Blood Count 5.09 10^6/ul (4.0-5.4); Red Cell Distribution Width 14 % (10.5-15); White Blood Count 7.7 10^3/ul (3.5-10.8)
[2017-11-06 15:28] LABS: EGFR Non-African American 86.2 (>60)
[2017-11-06 16:05] LABS: INR 0.91 (0.77-1.02)
[2017-11-06 16:48] LABS: ABS Basophils 0.1 10^3/ul (0-0.2); ABS Eosinophils 0.2 10^3/ul (0-0.6); ABS Lymphocytes 1.9 10^3/ul (1.0-4.8); ABS Monocytes 0.8 10^3/ul (0-0.8); ABS Neutrophils 4.7 10^3/ul (1.5-7.7); ABS Nucleated RBC 0 10^3/ul; Eosinophil % 2.6 % (0-6); Lymphocyte % 25.2 % (25-47); Nucleated Red Blood Cells % 0.1
[2017-11-06] MEDS ORDERED: Al Hydrox/Mg Hydrox/Simet LIQ* 30 ML UDC PO PRN (19:32)
[2017-11-06] MEDS ORDERED: Acetaminophen TAB* 325 MG PO PRN (19:32)
[2017-11-06] MEDS ORDERED: Senna TAB PO PRN (19:32)
[2017-11-06] MEDS ORDERED: HYDROmorphone INJ* 2 MG/ML CARPUJECT SYRINGE IV SLOW PU PRN (19:34)
[2017-11-06] MEDS ORDERED: Cyclobenzaprine TAB* 10 MG PO PRN (19:34)
[2017-11-06] MEDS ORDERED: Ketorolac INJ* 15 MG/ML 1 ML VIAL IV PUSH PRN (19:47)
[2017-11-06] MEDS ORDERED: oxyCODONE/Acetamin 5/325 MG* TAB PO PRN (19:47)
[2017-11-06] MEDS ORDERED: Albuterol HFA INHALER* 8 gm MDI INH PRN ×2 (19:53→19:55)
[2017-11-06 19:59] LABS: Urine Appearance Clear; Urine Blood Negative (Negative); Urine Color Yellow; Urine Ketones Negative (Negative); Urine Protein Negative (Negative); Urine Specific Gravity 1.021 (1.010-1.030); Urine Urobilinogen Negative (Negative)
--- NOTE | 2017-11-06 20:58 | HP ---
CC: Guzman Bowman MD * HISTORY AND PHYSICAL: DATE OF ADMISSION: 11/06/17 TIME OF EVALUATION: 1899 PRIMARY CARE PHYSICIAN: Guzman Bowman MD CHIEF COMPLAINT: Back pain. HISTORY OF PRESENT ILLNESS: This is a 57-year-old male with past medical history of chronic back pain after trauma 6 years ago falling from a tree, who has had 2 surgeries, who presents to the emergency room after falling when he slipped on the ice this morning and landed on his right hip. He states he was able to get up and he went and sat in his chair, but his pain got progressively worse throughout the day where he was unable to ambulate. He denies any loss of bowel or bladder function. He has no new numbness or tingling. He has struggled with issues with chronic back pain since his fall and surgery where he has problems with both of his hips and his lumbar spine. He was given morphine by EMS and he states it did not provide any relief. He was also given Ativan here and the nurse states he got very loopy and diaphoretic and he states it did not improve his pain either. He recently had a viral illness several days ago and is just starting to feel better today. No fevers, still with a cough. He has not used his inhalers as he states he could not find them. Otherwise, remaining review of systems is negative. In the emergency room, the patient had labs and imaging, and was referred to the hospitalist service for further evaluation. PAST MEDICAL HISTORY: 1. History of chronic back pain, status post trauma after falling from a tree 6 years ago, status post 2 lumbar surgeries. 2. COPD. 3. Adjustment disorder. 4. Restless leg syndrome. MEDICATIONS: 1. Duloxetine 40 mg p.o. at bedtime. 2. Ropinirole 1 mg p.o. at bedtime. 3. Oxycodone 5 mg as needed. 4. Inhalers as needed. ALLERGIES: No known drug allergies. FAMILY HISTORY: Both parents from old age. SOCIAL HISTORY: The patient quit smoking in 1996. He smoked a pack and half a day for 20 years. Rare alcohol use. He is disabled. Works part-time in [employer]. His healthcare proxy is his . Code status is full code. REVIEW OF SYSTEMS: A 14-point review of systems as mentioned in the HPI, otherwise negative. PHYSICAL EXAMINATION GENERAL: No acute distress. Some mild discomfort with his sitting at the bedside. VITAL SIGNS: Temp 97.2, pulse rate 63, respiratory rate 18, oxygen saturation 97 % on room air, blood pressure 127/74. HEENT: Head: Normocephalic. Pupils equal and reactive. Anicteric. Oropharynx: Mucous membranes moist. NECK: Supple. No lymphadenopathy. RESPIRATORY: Diminished breath sounds. No wheezes, rhonchi, or rales. CARDIAC: Regular rate and rhythm. No murmurs, rubs, or gallops. ABDOMEN: Soft, nontender, nondistended. EXTREMITIES: The patient with no clubbing, cyanosis, or edema. +1 DPs. MUSCULOSKELETAL: The patient with significant right hip pain with external and internal hip flexion and straight leg raise, limited mobility. There is some discomfort on the left side, but not nearly as significant at the right side. LABORATORY DATA: White count 7.7, hemoglobin 15.8, hematocrit 46, platelets 274,000. Sodium 138, potassium 3.6, chloride 105, bicarb 28, BUN 14, creatinine 0.91. RADIOGRAPHIC DATA: Lumbar spine CT shows postsurgical change. No acute osseous injury to the lumbar spine. Hip and pelvis x-ray shows no radiographic evidence for hip fracture. As x-rays may be negative with nondisplaced hip fracture, if there is persistent clinical concern, recommend consideration of MRI. In the setting of contraindication on MRI suggested. EKG shows sinus rhythm with right bundle branch block. ASSESSMENT: This is a 57-year-old male with past medical history of chronic back pain after having trauma, status post surgeries who slipped on ice this morning. He has had persistently progressively worsening right hip pain, unable to ambulate. 1. Right hip pain. Assessment: The patient with significant pain and unable to ambulate in the setting of his chronic back pain. No significant findings on his initial imaging and workup. Plan: We will admit him to short stay, continue with pain control and muscle relaxer. We will order PT and encourage ambulation. If his pain persists, I recommend MRIs as mentioned and include bowel regimen as well. CHRONIC MEDICAL PROBLEMS: Resume his duloxetine for mood disorder, ropinirole for restless legs and his albuterol inhaler. FEN: Regular diet. Code Status: Full code. DVT prophylaxis: Moderate risk, place him on heparin subcu t.i.d. TIME SPENT: Greater than 50 minutes spent doing the history and physical, more than half the time spent in direct patient contact. [id number]/[facility] #: [id number] JASSI
[2017-11-06] MEDS ORDERED: Ropinirole TAB* 0.5 MG TAB PO SCH (21:00)
--- NOTE | 2017-11-06 21:25 | ED ---
Pancho Benson Jennifer, scribed for Emanuel Johnson MD on 11/06/17 at 1351 . Back Pain - HPI Summary HPI Summary: The patient is a 57 year old male who slipped and fell on ice and complains of right hip and back pain today. The patient has broken his back twice before and had two screws placed in his back six years ago. He describes that he would walk after the fall, but the pain has gotten much worse. There was no loss of consciousness. - History of Current Complaint Stated Complaint: FALL/RT HIP INJURY Time Seen by Provider: 11/06/17 13:47 Hx Obtained From: Patient, EMS Onset/Duration: Sudden Onset, Still Present, Worse Since Onset/Duration: Still Present, Worse Since Timing: Constant Severity Initially: Severe Severity Currently: Severe Aggravating Symptom(s): Movement Alleviating Symptom(s): Nothing Associated Signs And Symptoms: Positive: Other - right hip pain, back pain. NEGATIVE: loss of consciousness - Allergies/Home Medications Allergies/Adverse Reactions: Allergies Allergy/AdvReac Type Severity Reaction Status Date / Time No Known Allergies Allergy Verified 12/09/16 09:56 PMH/Surg Hx/FS Hx/Imm Hx Endocrine/Hematology History: Denies: Hx Anticoagulant Therapy, Hx Blood Disorders, Hx Blood Transfusions, Hx Bone Marrow Disease, Hx Diabetes, Hx Thyroid Disease, Hx Anemia, Hx Unexplained Bleeding Cardiovascular History: Reports: Hx Hypertension Respiratory History: Reports: Hx Chronic Bronchitis, Hx Chronic Obstructive Pulmonary Disease (COPD), Hx Pneumonia, Hx Seasonal Allergies, Hx Sleep Apnea - SALVADOR-non compliant with CPAP Denies: Hx Asthma GI History: Reports: Hx Gastroesophageal Reflux Disease Denies: Hx Cirrhosis, Hx Crohn's Disease, Hx Diverticulosis, Hx Gall Bladder Disease, Hx Gastrointestinal Bleed, Hx Ileostomy, Hx Ulcer History: Denies: Hx Benign Prostatic Hyperplasia, Hx Chronic Renal Failure, Hx Dialysis, Hx Kidney Infection, Hx Kidney Stones, Hx Renal Disease Musculoskeletal History: Reports: Hx Arthritis, Hx Back Problems - SPINAL INJ AND SURGICAL REPAIR 2011, Hx Orthopedic Injury, Hx Scoliosis, Hx Tendonitis - Elbow Sensory History: Reports: Hx Contacts or Glasses Denies: Hx Hearing Aid Opthamlomology History: Reports: Hx Contacts or Glasses Neurological History: Reports: Hx Spinal Cord Injury - broke back in past metal in back titanium Denies: Hx Dementia, Hx Developmental Delay, Hx Headaches, Hx Migraine, Hx Nerve Disease Psychiatric History: Reports: Hx Anxiety, Hx Depression, Hx Bipolar Disorder, Hx Suicide Attempt Denies: Hx of Violent Episodes Against Others - Surgical History Surgery Procedure, Year, and Place: fractured back; partial rotator cuff tear R shoulder; hernias (umbilical and groin) Hx Anesthesia Reactions: No Infectious Disease History: Reports: History Other Infectious Disease - Spinal Meningitis at age 24yrs Denies: Hx Hepatitis, Hx Human Immunodeficiency Virus (HIV) - Family History Known Family History: Positive: Other Negative: Cardiac Disease Family History: Diverticulitis(mother) - Social History Alcohol Use: None Hx Substance Use: No Substance Use Type: Reports: None Hx Tobacco Use: Yes Smoking Status (MU): Former Smoker Type: Cigarettes Have You Smoked in the Last Year: No Review of Systems Positive: Myalgia - Right hip pain, back pain Neurological: Negative - loss of consiousness All Other Systems Reviewed And Are Negative: Yes Physical Exam - Summary Physical Exam Summary: Appearance: The patient is well-nourished in no acute distress and in no acute pain. Skin: The skin is warm and dry and skin color reflects adequate perfusion. HEENT: ~The head is normocephalic and atraumatic. The pupils are equal and reactive. The conjunctivae are clear and without drainage. ~Nares are patent and without drainage. ~Mouth reveals moist mucous membranes and the throat is without erythema and exudate. ~The external ears are intact. The ear canals are patent and without drainage. The tympanic membranes are intact. Neck: the neck is supple with full range of motion and non-tender. There are no carotid bruits. ~There is no neck vein distension. Respiratory: Chest is non-tender. ~Lungs are clear to auscultation and breath sounds are symmetrical and equal. Cardiovascular: Heart is regular rate and rhythm. ~There is no murmur or rub auscultated. ~~There is no peripheral edema and pulses are symmetrical and equal. Abdomen: The abdomen is soft and tender in the right lumbar area. ~There are normal bowel sounds heard in all four quadrants and there is no organomegaly palpated. Musculoskeletal: There is no back tenderness noted. ~Extremities are tender in any range of motion in right leg. There is no tenderness over the hip. ~There is good capillary refill. ~There is no peripheral edema or calf tenderness elicited. Neurological: Patient is alert and oriented to person, place and time. ~The patient has symmetrical motor strength in all four extremities. ~Cranial nerves are grossly intact. Deep tendon reflexes are symmetrical and equal in all four extremities. Psychiatric: The patient has an appropriate affect and does not exhibit any anxiety or depression. Triage Information Reviewed: Yes Vital Signs On Initial Exam: Initial Vitals Temp Pulse Resp BP Pulse Ox 97.2 F 76 18 142/75 95 11/06/17 13:48 11/06/17 13:48 11/06/17 13:48 11/06/17 13:48 11/06/17 13:48 Vital Signs Reviewed: Yes Diagnostics - Vital Signs Vital Signs Temp Pulse Resp BP Pulse Ox 11/06/17 19:30 69 126/87 98 11/06/17 19:00 63 127/74 97 11/06/17 18:30 68 128/68 97 11/06/17 18:00 68 120/70 96 11/06/17 17:30 66 128/78 99 11/06/17 17:00 64 131/65 97 11/06/17 16:30 64 118/66 96 11/06/17 16:03 76 18 111/75 97 11/06/17 16:00 67 13 125/80 96 11/06/17 15:30 66 12 111/75 97 11/06/17 15:00 64 12 132/74 93 11/06/17 14:30 130/83 11/06/17 14:29 71 90 11/06/17 14:19 70 92 11/06/17 14:17 134/69 11/06/17 14:01 18 11/06/17 13:58 71 92 11/06/17 13:53 78 95 11/06/17 13:51 142/75 11/06/17 13:48 97.2 F 76 18 142/75 95 - Laboratory Lab Results: Lab Results 11/06/17 11/06/17 11/06/17 Range/Units 15:00 15:00 15:00 WBC 7.7 (3.5-10.8) 10^3/ul RBC 5.09 (4.0-5.4) 10^6/ul Hgb 15.8 (14.0-18.0) g/dl Hct 46 (42-52) % MCV 91 (80-94) fL MCH 31 (27-31) pg MCHC 34 (31-36) g/dl RDW 14 (10.5-15) % Plt Count 274 (150-450) 10^3/ul MPV 10 (7.4-10.4) um3 Neut % (Auto) 61.3 (38-83) % Lymph % (Auto) 25.2 (25-47) % Bailey % (Auto) 10.0 H (1-9) % Eos % (Auto) 2.6 (0-6) % Baso % (Auto) 0.9 (0-2) % Absolute Neuts (auto) 4.7 (1.5-7.7) 10^3/ul Absolute Lymphs (auto) 1.9 (1.0-4.8) 10^3/ul Absolute Monos (auto) 0.8 (0-0.8) 10^3/ul Absolute Eos (auto) 0.2 (0-0.6) 10^3/ul Absolute Basos (auto) 0.1 (0-0.2) 10^3/ul Absolute Nucleated RBC 0 10^3/ul Nucleated RBC % 0.1 INR (Anticoag Therapy) 0.91 (0.77-1.02) Sodium 138 (133-145) mmol/L Potassium 3.6 (3.5-5.0) mmol/L Chloride 105 (101-111) mmol/L Carbon Dioxide 28 (22-32) mmol/L Anion Gap 5 (2-11) mmol/L BUN 14 (6-24) mg/dL Creatinine 0.91 (0.67-1.17) mg/dL Est GFR ( Amer) 110.8 (>60) Est GFR (Non-Af Amer) 86.2 (>60) BUN/Creatinine Ratio 15.4 (8-20) Glucose 123 H (70-100) mg/dL Lactic Acid (0.5-2.0) mmol/L Calcium 8.3 L (8.6-10.3) mg/dL Magnesium 2.3 (1.9-2.7) mg/dL Total Bilirubin 0.40 (0.2-1.0) mg/dL AST 18 (13-39) U/L ALT 23 (7-52) U/L Alkaline Phosphatase 38 (34-104) U/L Troponin I 0.00 (<0.04) ng/mL Total Protein 6.7 (6.4-8.9) g/dL Albumin 4.1 (3.2-5.2) g/dL Globulin 2.6 (2-4) g/dL Albumin/Globulin Ratio 1.6 (1-3) TSH 1.56 (0.34-5.60) mcIU/mL 11/06/17 Range/Units 15:00 WBC (3.5-10.8) 10^3/ul RBC (4.0-5.4) 10^6/ul Hgb (14.0-18.0) g/dl Hct (42-52) % MCV (80-94) fL MCH (27-31) pg MCHC (31-36) g/dl RDW (10.5-15) % Plt Count (150-450) 10^3/ul MPV (7.4-10.4) um3 Neut % (Auto) (38-83) % Lymph % (Auto) (25-47) % Bailey % (Auto) (1-9) % Eos % (Auto) (0-6) % Baso % (Auto) (0-2) % Absolute Neuts (auto) (1.5-7.7) 10^3/ul Absolute Lymphs (auto) (1.0-4.8) 10^3/ul Absolute Monos (auto) (0-0.8) 10^3/ul Absolute Eos (auto) (0-0.6) 10^3/ul Absolute Basos (auto) (0-0.2) 10^3/ul Absolute Nucleated RBC 10^3/ul Nucleated RBC % INR (Anticoag Therapy) (0.77-1.02) Sodium (133-145) mmol/L Potassium (3.5-5.0) mmol/L Chloride (101-111) mmol/L Carbon Dioxide (22-32) mmol/L Anion Gap (2-11) mmol/L BUN (6-24) mg/dL Creatinine (0.67-1.17) mg/dL Est GFR ( Amer) (>60) Est GFR (Non-Af Amer) (>60) BUN/Creatinine Ratio (8-20) Glucose (70-100) mg/dL Lactic Acid 0.9 (0.5-2.0) mmol/L Calcium (8.6-10.3) mg/dL Magnesium (1.9-2.7) mg/dL Total Bilirubin (0.2-1.0) mg/dL AST (13-39) U/L ALT (7-52) U/L Alkaline Phosphatase (34-104) U/L Troponin I (<0.04) ng/mL Total Protein (6.4-8.9) g/dL Albumin (3.2-5.2) g/dL Globulin (2-4) g/dL Albumin/Globulin Ratio (1-3) TSH (0.34-5.60) mcIU/mL Result Diagrams: 11/06/17 15:00 11/06/17 15:00 Lab Statement: Any lab studies that have been ordered have been reviewed, and results considered in the medical decision making process. - Radiology Hip/Pelvis XR Xray Interpretation: No Acute Changes - NO RADIOGRAPHIC EVIDENCE FOR HIP FRACTURE. X-RAYS MAY BE NEGATIVE WITH NONDISPLACED HIP FRACTURE, IF THERE IS PERSISTENT CLINICAL CONCERN, RECOMMEND CONSIDERATION OF MRI. IN THE SETTING OF CONTRAINDICATION TO MRI OR LIMITATION IN EMERGENT ACCESS TO MRI, CT WOULD BE SUGGESTED. Dr. Johnson has reviewed this report. Radiology Interpretation Completed By: Radiologist - CT L-Spin CT CT Interpretation: No Acute Changes - POSTSURGICAL CHANGE. NO ACUTE OSSEOUS INJURY TO THE LUMBAR SPINE. Dr. Johnson has reviewed this report. CT Interpretation Completed By: Radiologist - EKG 14:47 Cardiac Rate: NL EKG Rhythm: Sinus Rhythm - 63 BPM 14:55 Cardiac Rate: NL EKG Rhythm: Sinus Rhythm - 85 BPM EKG Interpretation: RBBB Back Pain Course/Dx - Course Course Of Treatment: Mr Dugan fell on the ice and wrenched his low back. He came in in severe pain and was treated with narcotics and muscle relaxers. His imaging was negative and he had a few periods of sleepiness during which he dropped his SPO2 a little. I was hesitant to give him more medications but he was still unable to ambulate secondary to the pain. He is being admitted for intractable pain. - Diagnoses Provider Diagnoses: Low back strain, Intractable pain Discharge - Discharge Plan Condition: Good Disposition: ADMITTED TO [facility] documentation as recorded by the scribe, Deleon,Jayde accurately reflects the service I personally performed and the decisions made by me, Emanuel Johnson MD.
[2017-11-06] MEDS: DULoxetine DR CAP* 20 MG CAP.DR PO SCH (21:32)
[2017-11-06] MEDS: Heparin VIAL(*) 5000 UNITS/ML VIAL (FIVE THOUSAND) SUBCUT SCH (21:32)
[2017-11-06] MEDS: Docusate CAP* 100 MG PO SCH (21:33)
[2017-11-07] MEDS: Heparin VIAL(*) 5000 UNITS/ML VIAL (FIVE THOUSAND) SUBCUT SCH ×2 (06:02→14:29)
[2017-11-07] MEDS: Docusate CAP* 100 MG PO SCH (08:44)
[2017-11-07] MEDS: DULoxetine DR CAP* 20 MG CAP.DR PO SCH (08:44)
[2017-11-07 17:05] VITALS: BP 111/52
--- NOTE | 2017-11-08 20:47 | DS ---
DISCHARGE SUMMARY: DATE OF ADMISSION: 11/06/17 DATE OF DISCHARGE: 11/07/17 ADMITTING PROVIDER: Libertad Regan DO ATTENDING PHYSICIAN: Andrews Figueroa MD PRIMARY CARE PHYSICIAN: Guzman Bowman MD CHIEF COMPLAINT: Back pain in the setting of fall. PRINCIPAL DIAGNOSIS: Back pain acute on chronic status post fall without evidence of fracture. HISTORY OF PRESENT ILLNESS AND HOSPITAL COURSE: Miguel Dugan is a 57-year-old male with past medic al history of chronic back pain after falling from a tree 6 years prior, now status post 2 surgeries, presents to the emergency room after slipping on ice, landing on his right hip, was able to get up, sat in his chair, but his pain was progressively worse throughout the day. He felt like he was unabl e to ambulate after. There was no loss of bowel or bladder function. No new numbness or tingling. He was given morphine by EMS and stated it did not provide any relief. He was also given Ativan and after that had some altered mental status, diaphoresis and the patient states it did not improve his pain either. Several days prior to admission, he got a viral illness and is just starting to feel bet ter. Denied any fevers, but did have a cough. Imaging in the emergency room included a lumbar spine CT, which showed postsurgical changes. No acute osseous injury to the lumbar spine. Hip and pelvis x-ray showed no radiographic evidence for hip fracture. He was admitted to observation status given his inability to ambulate at that time. Physical therapy was ordered. He was given a muscle relaxe r Flexeril 10 mg p.o. t.i.d. p.r.n. which he received once, Percocet 2 tabs once. He worked with [place], was able to ambulate. He had 2/10 pain at rest and 5/10 with movement. Pain increase d when bearing weight on the right lower extremity, while ambulating or sitting. He was able to ambu late 30 feet with a rolling walker and contact guard assistance. The patient was referred for home p hysical therapy services to continue his rehabilitation, but he declined given his concerns for finan cial cost involved and previous financial debt related to medical treatments. The patient is being d ischarged in followup to Dr. Bowman and was given also outpatient order for MRI of his right hip if hi s pain continues. DISCHARGE MEDICATIONS: Include: 1. Tylenol 650 mg p.o. q.4 hours p.r.n. 2. Flexeril 10 mg p.o. t.i.d. p.r.n. (new). 3. Docusate 100 mg p.o. b.i.d. 4. Percocet 1 tab q.4 hours p.r.n. for 20 tabs. 5. Senna 1 tab p.o. b.i.d. p.r.n. for constipation. 6. Cymbalta 20 mg p.o. t.i.d. 7. Ropinirole 1 mg p.o. q.p.m. DIET: No restrictions. ACTIVITY: No restrictions, but needing a walker which he has at home. FOLLOWUP: He is to follow up with Dr. Bowman within 5 days of discharge. He was given an order for o utpatient MRI of his right hip if his pain becomes worse. [id number]/[facility] [place] #: [id number]
== END 2017-11-07 18:35 | disposition home or self-care (01) ==
LOC: ED 13:43 → MED 19:32
PROVIDERS: ADMIT Pediatrics; ATTEND Internal Medicine
DX: M54.9 Dorsalgia, unspecified (principal); S39.012A Strain of muscle, fascia and tendon of lower back, initial encounter; M25.551 Pain in right hip; Z86.79 Personal history of other diseases of the circulatory system; Z87.891 Personal history of nicotine dependence; J44.9 Chronic obstructive pulmonary disease, unspecified; F43.20 Adjustment disorder, unspecified; G89.29 Other chronic pain; R05 Cough; G25.81 Restless legs syndrome; W00.9XXA Unspecified fall due to ice and snow, initial encounter; Y92.9 Unspecified place or not applicable
CPT/HCPCS: 36415; 72131; 80053; 81003; 83605; 83735; 84443; 84484; 85025; 85610; 93005; 96374; 96375; 99285; A9270-GY; G0378; G8978-GP-CI; G8979-GP-CH; J1644; J2060; J2405

== ENCOUNTER 2018-04-08 13:33 | Emergency (ER) | payer MEDICARE ==
[2018-04-08 13:52] VITALS: BP 151/97
[2018-04-08] MEDS ORDERED: Lidocaine 1% MPF* 2 ML VIAL INJ ONE (14:02)
[2018-04-08] MEDS ORDERED: Lidocaine 1%* 5 ML VIAL ONE (14:11)
[2018-04-08] MEDS ORDERED: Lidocaine 1%* 5 ML VIAL INJ ONE (14:11)
--- NOTE | 2018-04-08 14:22 | RAD ---
INDICATION: Puncture wound after stepping on something on the dorsal surface of the "ball of foot". According to the requisition the patient "cut it with a knife to get the pus out" 2 days earlier. COMPARISON: None. TECHNIQUE: 4 views of the left foot were obtained. FINDINGS: On the lateral view of the left foot there is a 2 mm faint radiodense focus along the plantar surface of the head of the first metatarsal. Otherwise the soft tissues overlying the bones are unremarkable. The adequately corticated bones are properly aligned. Joint spaces appear maintained. No fracture, dislocation or focal bony abnormality is seen. IMPRESSION: RADIODENSE 2 MM FOCUS OVERLYING THE SUBCUTANEOUS TISSUE ALONG THE DORSAL SURFACE ADJACENT TO THE HEAD OF THE LEFT GREAT TOE METATARSAL. THERE ARE NO PRIOR FOOT RADIOGRAPHS FOR COMPARISON TO COMMENT ON CHRONICITY. THIS COULD BE A BENIGN BONY OSSICLE OR POTENTIALLY A SMALL FOREIGN BODY ACCORDING TO THE PATIENT'S RECENT HISTORY. If the patient's symptoms persist, follow-up imaging is recommended.
--- NOTE | 2018-04-08 14:39 | UC ---
Skin Complaint HPI - HPI Summary HPI Summary: Patient presents stating he stepped on something in the bathroom, and he states there is something in my foot. He states he stuck a knife in the area and some puss came out. He states it feels like something sharp is poking me when I walk on it. - History of Current Complaint Chief Complaint: UCLowerExtremity Time Seen by Provider: 04/08/18 13:51 Stated Complaint: FOOT COMPLAINT Hx Obtained From: Patient Onset/Duration: Sudden Onset Skin Exposure Onset/Duration: Days Ago Onset Severity: Mild Current Severity: Mild Pain Intensity: 5 Location: Discrete, Foot (Left) Character: Pain Aggravating Factor(s): Touch Alleviating Factor(s): Nothing Associated Signs & Symptoms: Positive: Tenderness Related History: Trauma, Foreign Body - Allergy/Home Medications Allergies/Adverse Reactions: Allergies Allergy/AdvReac Type Severity Reaction Status Date / Time No Known Allergies Allergy Verified 04/08/18 13:52 Review of Systems Constitutional: Negative Skin: Other - foreign body left foot Eyes: Negative ENT: Negative Respiratory: Negative Cardiovascular: Negative Gastrointestinal: Negative Genitourinary: Negative Motor: Negative Neurovascular: Negative Musculoskeletal: Negative Neurological: Negative Psychological: Negative Is Patient Immunocompromised?: No All Other Systems Reviewed And Are Negative: Yes PMH/Surg Hx/FS Hx/Imm Hx Previously Healthy: Yes Other History Of: Negative For: Anticoagulant Therapy - Surgical History Surgical History: Yes Surgery Procedure, Year, and Place: fractured back; partial rotator cuff tear R shoulder; hernias (umbilical and groin) - Family History Known Family History: Positive: None, Other Negative: Cardiac Disease Family History: Diverticulitis(mother) - Social History Occupation: Employed Full-time Lives: With Family Alcohol Use: None Substance Use Type: None Smoking Status (MU): Former Smoker Type: Cigarettes Have You Smoked in the Last Year: No When Did the Patient Quit Smoking/Using Tobacco: 1996 - Immunization History Most Recent Influenza Vaccination: JUL 2015 Most Recent Tetanus Shot: 09/2015 Most Recent Pneumonia Vaccination: NONE Physical Exam Triage Information Reviewed: Yes Appearance: Well-Appearing Vital Signs: Initial Vital Signs Temp 98.2 F 04/08/18 13:48 Pulse 80 04/08/18 13:48 Resp 18 04/08/18 13:48 BP 151/97 04/08/18 13:48 Pulse Ox 99 04/08/18 13:48 Vital Signs Reviewed: Yes Eye Exam: Normal ENT Exam: Normal Neck exam: Normal Respiratory Exam: Normal Cardiovascular Exam: Normal Skin Exam: Other - left foot plantar aspect mid foot section, with small puncture wound visible, slightly raised. not surrounding flucuance, or induration. patient reports it feels like something is in there on palpation. Course/Dx - Course Course Of Treatment: Patient presents with complaints that he stepped on something and he can feel something in his foot. Xrays of the foot were obtained and read as negative. Concent and timeout performed. Area cleaned with betadine. Foot anestatized with lidocain 1%-3mls, and 11 blade used and 1.0 cm incision made, with 20 gauze needle the wound bed explored and a small white piece f glass was removed. Then a dsd applied. I told the patient to keep the area clean, covered and monitor for worseneing symtpoms s/a redness, warmth, drainage. If those develop he understands that he will need to be re-evaluated immediatly. I also told him there is the possiblity that there is more than one piece of glass and if he still feels like something is in there to return to the clinic or see his PCP. He verbalized understanding of and in agreement with the discharge plan. - Differential Diagnoses - Skin Complaint Differential Diagnoses: Other - foreign body soft tissue - Diagnoses Provider Diagnoses: foreign body soft tissue Discharge - Sign-Out/Discharge Documenting (check all that apply): Patient Departure - Discharge Plan Condition: Stable Disposition: HOME Patient Education Materials: Soft Tissue Foreign Body (ED) Referrals: Guzman Bowman MD [Primary Care Provider] - - Billing Disposition and Condition Condition: STABLE Disposition: Home
== END 2018-04-08 14:31 | disposition home or self-care (01) ==
LOC: UCEAST 13:33
DX: S91.342A Puncture wound with foreign body, left foot, initial encounter (principal); W22.8XXA Striking against or struck by other objects, initial encounter; Y93.01 Activity, walking, marching and hiking; Y92.002 Bathroom of unspecified non-institutional (private) residence as the place of occurrence of the external cause; Z83.79 Family history of other diseases of the digestive system; Z87.891 Personal history of nicotine dependence
CPT/HCPCS: 10120; 99211; G0463

== ENCOUNTER 2019-07-23 13:05 | Inpatient (IN) | payer MEDICARE ==
[2019-07-23] MEDS ORDERED: Ondansetron INJ* 2 MG/ML VIAL IV ONE (13:45)
[2019-07-23] MEDS ORDERED: Morphine 4 MG/ML VIAL (1 ml) 4 MG/ML VIAL IV ONE (13:45)
[2019-07-23] MEDS ORDERED: NS 0.9% 1000 ML** 1,000 ML IV ONE (13:45)
[2019-07-23 14:14] LABS: Hematocrit 52 % (42-52); Hemoglobin 17.2 g/dL (14.0-18.0); Mean Corpuscular HGB Conc 33 g/dL (31-36); Mean Corpuscular Hemoglobin 31 pg (27-31); Mean Corpuscular Volume 92 fL (80-94); Mean Platelet Volume 10.6 fL (7.4-10.4); Platelet Count 292 10^3/uL (150-450); Red Blood Count 5.59 10^6 /uL (4.18-5.48); Red Cell Distribution Width 14 % (10-15); White Blood Count 17.3 10^3/uL (3.5-10.8)
[2019-07-23 14:36] LABS: Albumin 4.3 g/dL (3.2-5.2); Albumin/Globulin Ratio 1.5 (1-3); BUN/Creatinine Ratio 13.2 (8-20); C Reactive Protein 51.48 mg/L (<8.01); Calcium 8.8 mg/dL (8.6-10.3); EGFR African American 87.1 (>60); Globulin 2.9 g/dL (2-4); Potassium 4.3 mmol/L (3.5-5.0); Total Bilirubin 0.7 mg/dL (0.2-1.0); Total Protein 7.2 g/dL (6.4-8.9)
[2019-07-23] MEDS ORDERED: Piperacillin/Tazobac ADVAN(*) 3.375 GM in NS 0.9% 100 ML* 100 ML IVPB ONE (14:49)
[2019-07-23 14:50] LABS: ABS Basophils 0.1 10^3/ul (0-0.2); ABS Eosinophils 0.1 10^3/ul (0-0.6); ABS Lymphocytes 2.1 10^3/ul (1.0-4.8); ABS Monocytes 1.6 10^3/ul (0-0.8); ABS Neutrophils 13.4 10^3/ul (1.5-7.7); Eosinophil % 0.8 %; Lymphocyte % 12.1 %
--- NOTE | 2019-07-23 14:53 | ED ---
Abdominal Pain/Male - HPI Summary HPI Summary: Patient is a 58-year-old male who presents emergency department for left lower abdominal pain since last night. Patient denies chest pain or shortness of breath. Patient notes history of diverticulitis and pain feels similar. Symptoms are moderate in severity. Pain is constant without modifying factors. Past medical history of COPD and hypertension. - History of Current Complaint Chief Complaint: EDAbdPain Stated Complaint: LOW ABD PAIN PER PT Time Seen by Provider: 07/23/19 13:34 Hx Obtained From: Patient Pain Intensity: 10 - Allergies/Home Medications Allergies/Adverse Reactions: Allergies Allergy/AdvReac Type Severity Reaction Status Date / Time No Known Allergies Allergy Verified 10/06/18 11:51 Home Medications: Home Medications NK [No Home Medications Reported] 07/23/19 [History Confirmed 07/23/19] PMH/Surg Hx/FS Hx/Imm Hx Previously Healthy: Yes Endocrine/Hematology History: Denies: Hx Anticoagulant Therapy, Hx Blood Disorders, Hx Blood Transfusions, Hx Bone Marrow Disease, Hx Diabetes, Hx Thyroid Disease, Hx Anemia, Hx Unexplained Bleeding Cardiovascular History: Reports: Hx Hypertension Respiratory History: Reports: Hx Chronic Bronchitis, Hx Chronic Obstructive Pulmonary Disease (COPD), Hx Pneumonia, Hx Seasonal Allergies, Hx Sleep Apnea - [place]-non compliant with CPAP Denies: Hx Asthma GI History: Reports: Hx Gastroesophageal Reflux Disease Denies: Hx Cirrhosis, Hx Crohn's Disease, Hx Diverticulosis, Hx Gall Bladder Disease, Hx Gastrointestinal Bleed, Hx Ileostomy, Hx Ulcer History: Denies: Hx Benign Prostatic Hyperplasia, Hx Chronic Renal Failure, Hx Dialysis, Hx Kidney Infection, Hx Kidney Stones, Hx Renal Disease Musculoskeletal History: Reports: Hx Arthritis, Hx Back Problems - SPINAL INJ, SURGICAL REPAIR 2012 - burst fx lumbar vertebra, Hx Orthopedic Injury, Hx Scoliosis, Hx Tendonitis - Elbow Sensory History: Reports: Hx Contacts or Glasses Denies: Hx Hearing Aid Opthamlomology History: Reports: Hx Contacts or Glasses Neurological History: Reports: 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 titanium Denies: Hx Dementia, Hx Developmental Delay, Hx Headaches, Hx Migraine, Hx Nerve Disease Psychiatric History: Reports: Hx Anxiety, Hx Depression, Hx Bipolar Disorder, Hx Suicide Attempt Denies: Hx of Violent Episodes Against Others - Surgical History Surgery Procedure, Year, and Place: fractured back; partial rotator cuff tear R shoulder; hernias (umbilical and groin) Hx Anesthesia Reactions: No Infectious Disease History: No Infectious Disease History: Reports: History Other Infectious Disease - Spinal Meningitis at age 24yrs Denies: Hx Hepatitis, Hx Human Immunodeficiency Virus (HIV), Traveled Outside the [place] in Last 30 Days - Family History Known Family History: Positive: None, Other, Non-Contributory Negative: Cardiac Disease Family History: Diverticulitis(mother) - Social History Occupation: Disabled Lives: With Family Alcohol Use: Rare Hx Substance Use: No Substance Use Type: Reports: None Hx Tobacco Use: Yes - not currently Smoking Status (MU): Former Smoker Type: Cigarettes Have You Smoked in the Last Year: No Review of Systems Constitutional: Negative Negative: Fever Cardiovascular: Negative Negative: Chest Pain Respiratory: Negative Negative: Shortness Of Breath Positive: Abdominal Pain. Negative: Vomiting, Diarrhea Genitourinary: Negative Neurological: Negative All Other Systems Reviewed And Are Negative: Yes Physical Exam Triage Information Reviewed: Yes Vital Signs On Initial Exam: Initial Vitals Temp Pulse Resp BP Pulse Ox 97.6 F 106 22 159/108 97 07/23/19 13:11 07/23/19 13:11 07/23/19 13:11 07/23/19 13:11 07/23/19 13:11 Vital Signs Reviewed: Yes Appearance: Positive: Pain Distress - Pt. lying on stretcher on right side. Appears in pain but nontoxic. present. Skin: Positive: Warm, Dry Head/Face: Positive: Normal Head/Face Inspection Eyes: Positive: Normal, EOMI Neck: Positive: Supple Respiratory/Lung Sounds: Positive: Clear to Auscultation, Breath Sounds Present Cardiovascular: Positive: Normal, RRR Abdomen Description: Positive: Other: - Obese. Pt. unable to lay on back for exam secondary to pain. Marked tenderness to LLQ with guarding. No CVA tenderness. Neurological: Positive: Normal, CN Intact II-III Psychiatric: Positive: Affect/Mood Appropriate Procedures - Sedation Patient Received Moderate/Deep Sedation with Procedure: No Diagnostics - Vital Signs Vital Signs Temp Pulse Resp BP Pulse Ox 07/23/19 14:32 16 07/23/19 13:42 91 151/99 96 07/23/19 13:11 97.6 F 106 22 159/108 97 - Laboratory Lab Results: Lab Results 07/23/19 07/23/19 Range/Units 13:59 13:59 WBC 17.3 H (3.5-10.8) 10^3/uL RBC 5.59 H (4.18-5.48) 10^6 /uL Hgb 17.2 (14.0-18.0) g/dL Hct 52 (42-52) % MCV 92 (80-94) fL MCH 31 (27-31) pg MCHC 33 (31-36) g/dL RDW 14 (10-15) % Plt Count 292 (150-450) 10^3/uL MPV 10.6 H (7.4-10.4) fL Neut % (Auto) 77.2 % Lymph % (Auto) 12.1 % Bowman % (Auto) 9.4 % Eos % (Auto) 0.8 % Baso % (Auto) 0.5 % Absolute Neuts (auto) 13.4 H (1.5-7.7) 10^3/ul Absolute Lymphs (auto) 2.1 (1.0-4.8) 10^3/ul Absolute Monos (auto) 1.6 H (0-0.8) 10^3/ul Absolute Eos (auto) 0.1 (0-0.6) 10^3/ul Absolute Basos (auto) 0.1 (0-0.2) 10^3/ul Absolute Nucleated RBC 0.0 10^3/ul Nucleated RBC % 0.0 Sodium 138 (135-145) mmol/L Potassium 4.3 (3.5-5.0) mmol/L Chloride 104 (101-111) mmol/L Carbon Dioxide 28 (22-32) mmol/L Anion Gap 6 (2-11) mmol/L BUN 14 (6-24) mg/dL Creatinine 1.06 (0.67-1.17) mg/dL Est GFR ( Amer) 87.1 (>60) Est GFR (Non-Af Amer) 72.0 (>60) BUN/Creatinine Ratio 13.2 (8-20) Glucose 97 (70-100) mg/dL Calcium 8.8 (8.6-10.3) mg/dL Total Bilirubin 0.70 (0.2-1.0) mg/dL AST 20 (13-39) U/L ALT 40 (7-52) U/L Alkaline Phosphatase 52 (34-104) U/L C-Reactive Protein 51.48 H (<8.01) mg/L Total Protein 7.2 (6.4-8.9) g/dL Albumin 4.3 (3.2-5.2) g/dL Globulin 2.9 (2-4) g/dL Albumin/Globulin Ratio 1.5 (1-3) Lipase 16 (11.0-82.0) U/L Result Diagrams: 07/23/19 13:59 07/23/19 13:59 Lab Statement: Any lab studies that have been ordered have been reviewed, and results considered in the medical decision making process. Abdominal Pain Male Course/Dx - Course Course Of Treatment: Pt. with significant LLQ pain. Mildly tachycardic. Afebrile , stable BP. Pt. started on IV fluids and pain medication. Labs and CT ordered. CBC shows leukoyctosis of 17k. Mild elevation of CRP. Labs otherwise unremarkable. Pt. given dose of zosyn for likely diverticulitis. CT per radiology: IMPRESSION: 1. FINDINGS MOST CONSISTENT WITH DIVERTICULITIS INVOLVING THE PROXIMAL SIGMOID COLON WITH. A MICROPERFORATION. THE INFLAMMATORY PROCESS EXTENDS TO INVOLVE THE ADJACENT URINARY. BLADDER. NO ABSCESS IS SEEN. 2. HEPATIC STEATOSIS. 1608: Case discussed with Dr. Lee, surgery, who will consult on pt. Case discussed with Dr. Belle, hospitalist, who accepts pt. to her service. - Diagnoses Differential Diagnosis/HQI/PQRI: Appendicitis, Bowel Obstruction, Urinary Tract Infection Provider Diagnoses: Diverticulitis of colon with perforation Discharge ED - Sign-Out/Discharge Documenting (check all that apply): Patient Departure - Discharge Plan Condition: Stable Disposition: ADMITTED TO [facility] Referrals: Guzman Bowman MD [Primary Care Provider] - - Billing Disposition and Condition Condition: STABLE Disposition: Admitted to [facility]
[2019-07-23] MEDS ORDERED: Iohexol 300* (CONTRAST) 10 ML SDV IV ONE (14:57)
[2019-07-23 16:42] LABS: Urine Appearance Clear; Urine Bilirubin Negative (Negative); Urine Blood Negative (Negative); Urine Color Yellow; Urine Glucose Negative (Negative); Urine Ketones Negative (Negative); Urine Nitrite Negative (Negative); Urine Protein Negative (Negative); Urine Specific Gravity 1.028 (1.010-1.030); Urine Urobilinogen Negative (Negative)
[2019-07-23] MEDS ORDERED: Ondansetron INJ* 2 MG/ML VIAL IV PRN (16:45)
[2019-07-23] MEDS ORDERED: Morphine INJ* 2 MG/ML 1 ML SYRINGE (TWO MG - NEW SYRINGE VERSION) IV PRN (16:45)
[2019-07-23] MEDS ORDERED: NS 0.9% 1000 ML** 1,000 ML IV SCH (16:45)
[2019-07-23] MEDS ORDERED: Zosyn per Pharmacy* NOTE FOLLOW UP SCH (17:00)
[2019-07-23] MEDS: ZOSYN 3.375 GM Q8H per EXTENDED INFUSION IVPB SCH ×2 (20:50)
[2019-07-23] MEDS: Heparin VIAL(*) 5000 UNITS/ML VIAL (FIVE THOUSAND) SUBCUT SCH (20:53)
[2019-07-23] MEDS: Acetaminophen TAB* 325 MG PO PRN (20:58)
--- NOTE | 2019-07-23 21:15 | HP ---
CC: Dr. Bwoman * HISTORY AND PHYSICAL: DATE OF ADMISSION: 07/23/19 PROVIDER: Ricky Broderick NP PRIMARY CARE PROVIDER: Dr. Bowman. ATTENDING PHYSICIAN WHILE IN THE HOSPITAL: Dr. Candi Belle * (dictated by Ricky Broderick NP) CHIEF COMPLAINT: Abdominal pain. HISTORY OF PRESENT ILLNESS: Mr. Dugan is a 58-year-old male with past medical history significant for COPD, history of fracture to his back, and history of diverticulitis, who presented to the emergency room with complaints of abdominal pain. The patient reports that he started with abdominal pain last night, reports the pain progressively got worse. He also reports significant pain with urination and due to these symptoms, the patient presented for further evaluation. The patient denies any black or tarry stools , denies any blood in the stool. He does report that he has chronic diarrhea. He does report some shortness of breath also that is chronic with white productive sputum. He denies any nausea, vomiting. He does report diarrhea and significant lower abdominal pain, suprapubic and to the left lower quadrant. He denies any gross hematuria. He does not complain of pain with urination. He denies any focal weakness, visual complaints, dysphagia, arthralgias, or myalgias. He does report multiple scabbed areas to bilateral arms and legs that has been ongoing for approximately 3 years. Denies any psychosis or anxiety. While in the emergency room, the patient had routine lab work drawn and CT of the abdomen and pelvis. White count was 17.3, he had an elevated heart rate of 106, which he met for sepsis criteria with elevated WBCs, elevated heart rate, and known source of diverticulitis. Due to his findings of diverticulitis with microperforation, Hospital Medicine was asked to evaluate for admission. PAST MEDICAL HISTORY: Significant for: 1. COPD, untreated at this time. 2. Diverticulitis. 3. History of chronic back pain due to fractured back. PAST SURGICAL HISTORY: 1. Back surgery. 2. Right shoulder surgery for torn rotator cuff. 3. Hernia repair. 4. Tonsillectomy. HOME MEDICATIONS: None. ALLERGIES: No known drug allergies. FAMILY HISTORY: Mother with a history of hypertension. No reported history of diabetes or cancer. SOCIAL HISTORY: The patient quit smoking in 1996. Prior to that, he smoked for 30 years about a pack a day. He does report rare alcohol use, no illicit drug use. He is . He lives with his . Surrogate decision maker in the event he is unable to make his own decisions is his . The patient wishes to be DNR, this needs to be clarified and readdressed. REVIEW OF SYSTEMS: A 14-point review of systems was completed. All pertinent positives were as mentioned in the HPI. PHYSICAL EXAMINATION GENERAL: At this time, Mr. Dugan is a 58-year-old male. He is awake and oriented. Resting on the stretcher in the emergency room. He is in no acute distress. VITAL SIGNS: Blood pressure 110/78, heart rate 89, respirations are 95, temperature is 98.4. HEENT: Head is atraumatic, normocephalic. Eyes: EOMs are intact. Sclerae anicteric and not pale. Oral mucosa appeared to be moist. NECK: Supple. LUNGS: Clear to auscultation bilaterally. No wheezes, rales, or rhonchi. CARDIAC: S1, S2. Regular rate and rhythm. No murmurs, rubs, or gallops. ABDOMEN: Obese, soft. He does have tenderness with palpation to suprapubic and left lower quadrant with guarding. EXTREMITIES: The patient is able to move all 4 extremities. There is no clubbing or cyanosis. Pedal pulses are +2 bilaterally. NEUROLOGIC: He is awake, alert, and oriented x3. Speech is clear. Thought process is intact. There are no gross focal deficits. SKIN: He has multiple scabbed areas noted to bilateral arms and legs, different stages of healing. There is no surrounding erythema or signs of infection. DIAGNOSTIC STUDIES/LAB DATA: WBCs are 17.3, RBCs 5.59, hemoglobin 17.2, hematocrit is 52, platelet count 292. Sodium 138, potassium 4.3, chloride 104, carbon dioxide is 20. Anion gap of 6. BUN 14, creatinine 1.06. Glucose 97. Lactic acid 0.9. Calcium 8.8. Total bilirubin 0.70. ASTs 20, ALTs 40, alkaline phosphatase 52. C-reactive protein was 51.48. Lipase was 16. Urine is currently pending. ASSESSMENT AND PLAN: Mr. Dugan is a 58-year-old male with past medical history significant for history of diverticulitis, chronic obstructive pulmonary disease, and history of chronic back pain due to history of back fracture, who presented to the emergency room with complaints of abdominal pain that started 1 day prior to his arrival to the emergency room. He will be admitted for: 1. Sepsis. The patient does meet sepsis criteria with elevated white count, tachycardia, and suspected source of diverticulitis. The patient was given Zosyn 3.375 g in the emergency room. We will continue him on Zosyn as per pharmacy protocol. I will continue him on IV fluids, normal saline around 100 cc per hour. Surgery has been consulted by the emergency room and will see the patient in consultation. He will be placed on clear liquid diet. I will repeat a CBC and BMP in the a.m. and I will obtain blood cultures at this time. 2. History of chronic obstructive pulmonary disease. No current treatment at this time. 3. FEN. He can have a clear liquid diet. 4. Code status. The patient wishes to be DNR, this needs to be confirmed and readdressed. 5. DVT prophylaxis. I will place him on heparin subcu. TIME SPENT: Time spent on this admission was 60 minutes, greater than half that time was spent at the bedside, reviewing events leading thus far to his hospitalization, performing physical exam, and reviewing my plan of care. I have discussed this with my attending, Dr. Candi Belle; she is in agreement with my plan. RICKY BRODERICK, COMMUNITY PLANNER [id number]/[facility] #: [id number] JASSI
--- NOTE | 2019-07-23 22:52 | CONS ---
CC: Dr. Guzman Bowman* SURGICAL CONSULTATION NOTE: DATE OF CONSULT: 07/23/19 ATTENDING SURGEON: Linwood Lee MD CHIEF COMPLAINT: Diverticulitis with microperforation. HISTORY OF PRESENT ILLNESS: This is a 58-year-old male who presented to the ED with what appears to be his fourth episode of acute diverticulitis in approximately 4 years. He states that he had some minor pain when he went to bed last evening in the left lower quadrant of the abdomen. However, when he woke up this morning, his pain had become very bad and he also noted significant pain in his penis upon urination. He denies any hematuria or increased frequency, but has experienced similar symptoms subsequently. His left lower quadrant pain is similar to that which he has experienced in the past with episodes of acute diverticulitis. He denies fever or chills. He states that his pain has been as high as 10/10 and at the time of my interview with him was 8/10. He is unsure if he has had surgical consult for this problem in the past and I did not see any notes from our group. He states that his last colonoscopy was about 4 years ago, but I do not see any record of that in the [facility] record. He states that he has chronic diarrhea, that his stools are loose, typically occurring b.i.d., but also more frequently whenever he eats. He denies any blood per rectum. Occasionally, he will have formed stools. He will also occasionally note blood on the toilet paper after moving his bowels. PAST MEDICAL HISTORY: 1. Chronic pain secondary to a prior injury with lumbar fracture and status post 2 lumbar back surgeries. 2. COPD (quit smoking in 1996). 3. GERD. 4. An IVC filter was apparently placed at the time of his back surgeries for prophylaxis (he has never had a history of DVT or PE). PAST SURGICAL HISTORY: Surgeries include two lumbar surgeries, right shoulder surgery, right inguinal hernia repair, an umbilical hernia repair as well as IVC filter placement. MEDICATIONS: Current medications are none (he states that he does have a 5 mg oxycodone prescription at home, which he uses once daily p.r.n. severe pain, but not most days. He will take Tylenol on occasion. He has used bronchodilator therapy for his COPD in the past, though not in recent years). DRUG ALLERGIES: None known. FAMILY HISTORY: Negative for colorectal cancer, anesthesia problems, bleeding or clotting disorder. SOCIAL HISTORY: The patient is . 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 He is a former smoker of between 1 and 1-1/2 packs per day for 30 years; he quit in 1996. He denies use of alcohol or recreational drugs. REVIEW OF SYSTEMS: General: As above per the HPI. Weight is up approximately 10 pounds over the past year. No other recent illnesses or constitutional symptoms. HEENT: He uses a full upper denture and does have a partial lower denture, though he does not use it. No vision problems reported. Cardiovascular: No chest pain, palpitations, or history of heart murmur. Respiratory: As noted above, without any recent change in his baseline shortness of breath with exertion. No cough. GI: As above per HPI. He has occasional GERD symptoms, though improved versus years past. : As above. No additions. Endocrine: No diabetes or thyroid dysfunction. PHYSICAL EXAMINATION: Height 6 feet 1 inch, weight 270 pounds, BMI 35.6. Temperature 97.6, blood pressure 110/78, pulse 89, respirations 16 to 22, room air saturation 95%. General: Well-nourished obese male, in mild distress, finding it difficult to find a comfortable position on the stretcher. Skin: Warm and dry. No suspicious rashes or lesions noted. HEENT: Pupils are equal and round, reactive. EOMs intact. Conjunctivae pink. Oropharynx: No upper teeth. Remaining lower teeth are in good repair. No intraoral lesions. Neck: No lymphadenopathy, thyromegaly, or masses. Heart: Regular rate and rhythm. No murmur noted. Lungs: Clear to auscultation. No rales or wheezes. Abdomen: Obese. Bowel sounds somewhat hyperactive. Soft with moderately severe tenderness in the left lower quadrant without palpable mass, guarding, or rebound. Tenderness extends to the suprapubic area. The remainder of the abdomen is soft and nontender. Rectal: Not done. Back: Well-healed lower lumbar scar. Some spinous process tenderness in the upper back as well. No CVA tenderness. Extremities: No edema. Neurological: Grossly intact. DIAGNOSTIC STUDIES/LAB DATA: White blood cell count 17,300, hemoglobin 17.2, hematocrit 52. Electrolytes, BUN, creatinine, and liver function tests were all normal. Lipase is normal at 16. Lactic acid is normal at 0.9. CRP is elevated at 51. CT scan of the abdomen and pelvis with IV contrast only shows fatty liver changes and a small hiatal hernia as well as a chronic fracture at L2 and status post fusion from T12 to L4. It also shows the IVC filter. In the area of the sigmoid colon is noted diverticular disease with significant inflammation , infiltration around the sigmoid colon with a couple of areas of what appeared to be extraluminal gas. There is no abscess. IMPRESSION: Acute diverticulitis with microperforation. PLAN: The patient is admitted to the hospitalist service and is placed on Zosyn as well as IV fluids and IV pain medications as needed. Clear liquid diet would be permissible as there are no indications for immediate surgical intervention. The patient understands that in some cases, surgery is needed urgently, but that most of the cases do respond to conservative treatment. I also advised that he have discussion with the surgeon regarding semi-elective sigmoid colectomy because of the number of episodes he has had requiring hospitalization. ASHLEY VILLARREAL [id number]/[facility] #: [id number] MTDJordan
[2019-07-24] MEDS: ZOSYN 3.375 GM Q8H per EXTENDED INFUSION IVPB SCH ×6 (03:51→20:24)
[2019-07-24] MEDS: Acetaminophen TAB* 325 MG PO PRN ×3 (04:34→14:08)
[2019-07-24] MEDS: Heparin VIAL(*) 5000 UNITS/ML VIAL (FIVE THOUSAND) SUBCUT SCH ×3 (04:36→22:21)
[2019-07-24] MEDS ORDERED: Influenza VAC *QUAD* 2019-20* 0.5 ML SYRINGE IM ONE (09:00)
[2019-07-24 09:48] LABS: ABS Eosinophils 0.1 10^3/ul (0-0.6); ABS Monocytes 1.5 10^3/ul (0-0.8); ABS Neutrophils 10.2 10^3/ul (1.5-7.7); Eosinophil % 0.5 %; Hematocrit 47 % (42-52); Hemoglobin 15.5 g/dL (14.0-18.0); Lymphocyte % 14.3 %; Mean Corpuscular HGB Conc 33 g/dL (31-36); Mean Corpuscular Hemoglobin 30 pg (27-31); Mean Corpuscular Volume 91 fL (80-94); Mean Platelet Volume 10.6 fL (7.4-10.4); Nucleated Red Blood Cells % 0.1; Platelet Count 253 10^3/uL (150-450); Red Blood Count 5.12 10^6 /uL (4.18-5.48); Red Cell Distribution Width 14 % (10-15); White Blood Count 13.9 10^3/uL (3.5-10.8)
[2019-07-24 10:01] LABS: BUN/Creatinine Ratio 11.3 (8-20); Calcium 8.4 mg/dL (8.6-10.3); EGFR African American 79.3 (>60); EGFR Non-African American 65.5 (>60); Potassium 3.8 mmol/L (3.5-5.0)
--- NOTE | 2019-07-24 10:11 | PN ---
Subjective Date of Service: 07/24/19 Interval History: Patient states he does still have abdominal pain and suprapubic pain with urination, though both of these are improved per patient. He denies fever/chills , nausea, vomiting, chest pain. He states it has "burned" expiration for 2 months in his epigastric region. Objective Active Medications: Acetaminophen (Tylenol Tab*) 650 mg PO Q4H PRN PRN Reason: MILD PAIN or TEMP > 100.4 Last Admin: 07/24/19 09:51 Dose: 650 mg Heparin Sodium (Porcine) (Heparin Vial(*)) 5,000 units SUBCUT Q8HR [facility] Last Admin: 07/24/19 04:36 Dose: 5,000 units Sodium Chloride (Ns 0.9% 1000 Ml) 1,000 mls @ 100 mls/hr IV PER RATE [facility] Last Admin: 07/23/19 20:50 Dose: 100 mls/hr Piperacillin Sod/Tazobactam (Sod 3.375 gm/ Sodium Chloride) 100 mls @ 25 mls/ hr IVPB Q8H [facility] Last Admin: 07/24/19 03:51 Dose: 25 mls/hr Morphine Sulfate (Morphine Inj (Syringe))*) 2 mg IV Q4H PRN PRN Reason: PAIN - MODERATE Last Admin: 07/23/19 18:19 Dose: 2 mg Ondansetron HCl (Zofran Inj*) 4 mg IV Q6H PRN PRN Reason: NAUSEA/VOMITING Pharmacy Consult (Zosyn Per Pharmacy*) 1 note FOLLOW UP .ZOSYN PER PHARMACY [facility] Vital Signs - 8 hr 07/24/19 07/24/19 03:38 07:00 Temperature 98.4 F 98.2 F Pulse Rate 86 67 Respiratory 16 20 Rate Blood Pressure 118/66 114/48 (mmHg) O2 Sat by Pulse 92 93 Oximetry Oxygen Devices in Use Now: None Appearance: Obese, white male, appears older than stated age, laying in bed, appearing in NAD Eyes: No Scleral Icterus Ears/Nose/Mouth/Throat: Mucous Membranes Moist, - - edentulous Neck: NL Appearance and Movements; NL JVP Respiratory: Symmetrical Chest Expansion and Respiratory Effort, Clear to Auscultation Cardiovascular: NL Sounds; No Murmurs; No JVD, RRR Abdominal: - - normoactive BS x4Q; tenderness to palpation in suprapubic region and LLQ; no guarding or distension Extremities: No Edema, No Clubbing, Cyanosis, - - neg calf tenderness Skin: No Rash or Ulcers Neurological: Alert and Oriented x 3, NL Muscle Strength and Tone Result Diagrams: 07/24/19 09:18 07/24/19 09:18 Additional Lab and Data: Lab Results 07/23/19 07/23/19 Range/Units 13:59 13:59 WBC 17.3 H (3.5-10.8) 10^3/uL RBC 5.59 H (4.18-5.48) 10^6 /uL Hgb 17.2 (14.0-18.0) g/dL Hct 52 (42-52) % MCV 92 (80-94) fL MCH 31 (27-31) pg MCHC 33 (31-36) g/dL RDW 14 (10-15) % Plt Count 292 (150-450) 10^3/uL MPV 10.6 H (7.4-10.4) fL Neut % (Auto) 77.2 % Lymph % (Auto) 12.1 % [place] % (Auto) 9.4 % Eos % (Auto) 0.8 % Baso % (Auto) 0.5 % Absolute Neuts (auto) 13.4 H (1.5-7.7) 10^3/ul Absolute Lymphs (auto) 2.1 (1.0-4.8) 10^3/ul Absolute Monos (auto) 1.6 H (0-0.8) 10^3/ul Absolute Eos (auto) 0.1 (0-0.6) 10^3/ul Absolute Basos (auto) 0.1 (0-0.2) 10^3/ul Absolute Nucleated RBC 0.0 10^3/ul Nucleated RBC % 0.0 Sodium 138 (135-145) mmol/L Potassium 4.3 (3.5-5.0) mmol/L Chloride 104 (101-111) mmol/L Carbon Dioxide 28 (22-32) mmol/L Anion Gap 6 (2-11) mmol/L BUN 14 (6-24) mg/dL Creatinine 1.06 (0.67-1.17) mg/dL Est GFR ( Amer) 87.1 (>60) Est GFR (Non-Af Amer) 72.0 (>60) BUN/Creatinine Ratio 13.2 (8-20) Glucose 97 (70-100) mg/dL Calcium 8.8 (8.6-10.3) mg/dL Total Bilirubin 0.70 (0.2-1.0) mg/dL AST 20 (13-39) U/L ALT 40 (7-52) U/L Alkaline Phosphatase 52 (34-104) U/L C-Reactive Protein 51.48 H (<8.01) mg/L Total Protein 7.2 (6.4-8.9) g/dL Albumin 4.3 (3.2-5.2) g/dL Globulin 2.9 (2-4) g/dL Albumin/Globulin Ratio 1.5 (1-3) Lipase 16 (11.0-82.0) U/L Assess/Plan/Problems-Billing Assessment: 58 yo white male with PMHx hx of multiple previous episodes of diverticulitis, COPD, and chronic back pain presents to ED with abdominal pain. - Patient Problems (1) Diverticulitis Current Visit: No Status: Acute Comment: -prior hx of diverticulitis in the past, at least 2 hospitalized episodes I can see in EMR -with microperforations and inflammation of bladder -symptomatically improved today, though still requiring pain medication -tolerating clear liquid diet, advance to full -continue zosyn -appreciate gen surgery consult. Medical mgmt at this time. (2) Sepsis Current Visit: No Status: Acute Comment: -Secondary to diverticulitis -leukocytosis is downtrending, tachycardia resolved -afebrile -blood culture pending (3) COPD (chronic obstructive pulmonary disease) Current Visit: No Status: Acute Code(s): J44.9 - CHRONIC OBSTRUCTIVE PULMONARY DISEASE, UNSPECIFIED SNOMED Code(s): 10453121 Comment: -Currently not in acute exacerbation, though complains of ongoing pain with respirations -has not taken meds for several years -declined spiriva -will order prn duonebs (4) Chronic back pain Current Visit: No Status: Acute Code(s): M54.9 - DORSALGIA, UNSPECIFIED; G89.29 - OTHER CHRONIC PAIN SNOMED Code(s): 800049861 Comment: -not on chronic medication (5) DVT prophylaxis Current Visit: No Status: Acute Code(s): YMB9846 - SNOMED Code(s): 327499061 Comment: -HSQ (6) Full code status Current Visit: No Status: Acute Code(s): Z78.9 - OTHER SPECIFIED HEALTH STATUS SNOMED Code(s): 671759639 Status and Disposition: inpatient pending further medical improvement
[2019-07-24] MEDS ORDERED: oxyCODONE/Acetamin 5/325 MG* TAB PO PRN ×2 (10:13)
[2019-07-24] MEDS ORDERED: Senna TAB 8.6 mg* TAB PO PRN (10:13)
[2019-07-24] MEDS ORDERED: Polyethylene Glycol 3350* 17 GM PACKET PO PRN (10:13)
[2019-07-24] MEDS ORDERED: Morphine INJ* 2 MG/ML 1 ML SYRINGE (TWO MG - NEW SYRINGE VERSION) IV PRN (10:13)
[2019-07-24] MEDS ORDERED: Albuterol/Ipratropium NEB.SOL* Albuterol 2.5 MG/Ipratropium 0.5 MG 3 ML INH PRN (10:17)
--- NOTE | 2019-07-24 16:05 | PN ---
Progress Note - Progress Note Date of Service: 07/24/19 SOAP: Subjective: Pt in bed, c/o LLQ pain, but says improved since admission [] Objective: Vital Signs Temp 98.8 F 07/24/19 15:00 Pulse 78 07/24/19 15:00 Resp 22 07/24/19 15:00 BP 121/60 07/24/19 15:00 Pulse Ox 97 07/24/19 15:00 Intake & Output 07/23/19 07/24/19 07/24/19 18:59 06:59 18:59 Intake Total 1510 3053 1490 Output Total 850 1750 Balance 1510 2203 -260 Weight 270 lb 1 oz Intake: IV Fluids 100 250 NS (0.9%) 250 IVPB 233 NS (0.9%) 233 Medicated IV 350 zosyn 350 Oral 1410 2820 890 Output: Urine 850 1750 Other: Estimated Void Medium # Voids 2 Laboratory Tests 07/23/19 07/23/19 07/24/19 13:59 13:59 09:18 WBC 17.3 H 13.9 H C-Reactive Protein 51.48 H PEX: GEN: uncomfortable in bed, lying on right side CHEST: CTA B/L CVS: RRR Abd: Obese, + Tender LLQ Ext: Calves soft B/L, non tender Assessment: 58 yo male with PMH sig for diverticulits x 3 prior admissions once a year which have responded well to conservative management, IV ABX and Observation [] Plan: Conservative non operative management with IV Fluids, IV Abx, labs, DVT prophylaxis []
[2019-07-25] MEDS: ZOSYN 3.375 GM Q8H per EXTENDED INFUSION IVPB SCH ×4 (04:05→12:05)
[2019-07-25] MEDS: Acetaminophen TAB* 325 MG PO PRN (06:22)
[2019-07-25] MEDS: Heparin VIAL(*) 5000 UNITS/ML VIAL (FIVE THOUSAND) SUBCUT SCH ×2 (07:12→14:53)
[2019-07-25 09:22] LABS: ABS Basophils 0.1 10^3/ul (0-0.2); ABS Eosinophils 0.1 10^3/ul (0-0.6); ABS Lymphocytes 1.8 10^3/ul (1.0-4.8); ABS Monocytes 1.3 10^3/ul (0-0.8); ABS Neutrophils 11.3 10^3/ul (1.5-7.7); Eosinophil % 0.6 %; Hematocrit 47 % (42-52); Hemoglobin 15.8 g/dL (14.0-18.0); Mean Corpuscular HGB Conc 34 g/dL (31-36); Mean Corpuscular Hemoglobin 31 pg (27-31); Mean Corpuscular Volume 91 fL (80-94); Mean Platelet Volume 11.3 fL (7.4-10.4); Platelet Count 248 10^3/uL (150-450); Red Blood Count 5.11 10^6 /uL (4.18-5.48); Red Cell Distribution Width 14 % (10-15); White Blood Count 14.6 10^3/uL (3.5-10.8)
[2019-07-25 09:29] LABS: BUN/Creatinine Ratio 11.1 (8-20); Calcium 8.7 mg/dL (8.6-10.3); EGFR African American 94.3 (>60); EGFR Non-African American 77.9 (>60); Potassium 3.8 mmol/L (3.5-5.0)
--- NOTE | 2019-07-25 10:54 | PN ---
Progress Note - Progress Note Date of Service: 07/25/19 SOAP: Subjective: Feels better-less pain Had BM and passing flatus Tolerating some liquids Objective: Temp Pulse Resp BP Pulse Ox 98.3 F 70 16 122/58 94 07/25/19 07:30 07/25/19 07:30 07/25/19 07:46 07/25/19 07:30 07/25/19 07:30 PEX: Comfortable Abs is soft and non-distended. Bowel sounds are present. Tenderness in the LLQ-- no rebound or rigidity. Laboratory Results - last 24 hr 07/25/19 07/25/19 08:18 08:18 WBC 14.6 H RBC 5.11 Hgb 15.8 Hct 47 MCV 91 MCH 31 MCHC 34 RDW 14 Plt Count 248 MPV 11.3 H Neut % (Auto) 77.7 Lymph % (Auto) 12.0 [place] % (Auto) 9.1 Eos % (Auto) 0.6 Baso % (Auto) 0.6 Absolute Neuts (auto) 11.3 H Absolute Lymphs (auto) 1.8 Absolute Monos (auto) 1.3 H Absolute Eos (auto) 0.1 Absolute Basos (auto) 0.1 Absolute Nucleated RBC 0.0 Nucleated RBC % 0.0 Sodium 138 Potassium 3.8 Chloride 105 Carbon Dioxide 25 Anion Gap 8 BUN 11 Creatinine 0.99 Est GFR ( Amer) 94.3 Est GFR (Non-Af Amer) 77.9 BUN/Creatinine Ratio 11.1 Glucose 88 Calcium 8.7 Assessment: Sigmoid diverticulitis-clinically improved Leukocytosis-WBC slightly up from yesterday Plan: Continue IV abx Diet as tolerated-should be low residue Follow WBC-d/c home when normalized
[2019-07-25 15:30] VITALS: BP 130/52
--- NOTE | 2019-07-25 23:33 | DS ---
DISCHARGE SUMMARY: DATE OF ADMISSION: 07/23/19 DATE OF DISCHARGE: 07/25/19 PRIMARY CARE PROVIDER: Dr. Bowman. CONSULTING GENERAL SURGERY PROVIDERS: ASHLEY Cervantes and Dr. Lee. ATTENDING PHYSICIAN WHILE IN THE HOSPITAL: Dr. Candi Belle * (dictated by ASHLEY Arreaga). PRIMARY DIAGNOSES: 1. Sepsis secondary to diverticulitis, sepsis resolved. 2. Diverticulitis with microperforation, improved. SECONDARY DIAGNOSES: 1. Chronic obstructive pulmonary disease, currently untreated. 2. History of prior episodes of diverticulitis. 3. History of chronic back pain. STUDIES WHILE IN THE HOSPITAL: 1. A CT abdomen and pelvis on 07/23/19. Impression: Findings are consistent with diverticulitis involving the proximal sigmoid colon with microperforation. The inflammatory process extends to involve the adjacent urinary bladder. No abscess is seen. 2. Hepatic steatosis. Chest x-ray on 07/23/19: No evidence for active cardiopulmonary disease. HISTORY OF PRESENT ILLNESS/HOSPITAL COURSE: Tino Dugan is a 58-year-old white male with the past medical history significant for COPD, chronic back pain , and prior history of diverticulitis, who presented to the emergency department due to abdominal pain, specifically with urination. For further information please see the admitting history and physical written by Radha Broderick NP. Ultimately, the patient was found to have diverticulitis with microperforation. General Surgery saw the patient in consultation and recommended conservative medical management. Given the patient has had multiple prior episodes of diverticulitis, general surgery offered that the patient may pursue outpatient elective surgery in the future. During the patient's hospital stay, he was treated with IV Zosyn and pain was controlled with oxycodone. By the day of discharge, the patient was no longer taking any opiates or medication. His pain was well controlled with just Tylenol. By the date of discharge, his pain was significantly improved. He is no longer having pain with urination. He had been afebrile during the entirety of this hospital stay. He did still have a leukocytosis; however, this did decrease from his admission. He is tolerating a full regular diet and felt comfortable at discharge. On the day of discharge he had no nausea, vomiting, abdominal pain, fevers, or chills. PHYSICAL EXAMINATION: His physical exam was greatly improved and there was no longer tenderness to palpation in the left lower quadrant nor in the suprapubic area. General: Obese white male, appears older than stated age. Laying upright in hospital bed, appearing comfortable, in no acute distress. Eyes: PERRLA. Sclerae anicteric. ENT: Mucous membranes are moist. Edentulous. Neck : Supple. Lungs: Clear to auscultation throughout. Cardio: Regular rate and rhythm without murmurs, rubs, or gallops. Abdomen: Normoactive bowel sounds x4 quadrants. No tenderness to palpation or distention or hepatosplenomegaly. Abdomen is soft. Extremities: No clubbing, cyanosis, or edema. No calf tenderness. Neuro: The patient is alert and oriented x3. No focal deficits. Able to move all extremities. No tremors. DISCHARGE PLAN: DIET: Regular unrestricted diet. ACTIVITY: The patient may return to his normal activity as tolerated. The patient is advised to followup with his primary care provider, Dr. Bowman. During the patient's hospital stay he declined medications for his COPD; however , I did advise the patient to follow up with Dr. Bowman regarding this. He should follow up with Dr. Bowman within 7 to 10 days to ensure complete resolution of his diverticulitis once antibiotics have been completed. He is advised to continue his antibiotics to the end of the prescription. Advised to return to the emergency department if he experiences fever, chills, severe abdominal pain, vomiting to the point where he is not being able to keep down liquids or blood in his stool. Additionally, he was provided with Dr. Lee' office phone number to pursue elective abdominal surgery should he elect to do so. MEDICATIONS: Continued home medications: Not applicable. New Medications: 1. Augmentin 875 mg p.o. t.i.d. x22 doses. 2. Acetaminophen 650 mg p.o. q.4 hours p.r.n. pain. CONDITION ON DISCHARGE: Stable. DISPOSITION: Home. TIME SPENT: Approximately 35 minutes were spent on this discharge, approximately half this time was spent at the bedside evaluating the patient and discussing the plan of care. ASHLEY ARREAGA [id number]/[facility] #: [id number] [facility] HOSPITALJordan
== END 2019-07-25 18:14 | disposition home or self-care (01) | DRG 872 ==
LOC: ED 13:05 → MED 16:45
PROVIDERS: ADMIT Internal Medicine; ATTEND Internal Medicine
DX: A41.9 Sepsis, unspecified organism (principal); K57.20 Diverticulitis of large intestine with perforation and abscess without bleeding; K76.0 Fatty (change of) liver, not elsewhere classified; R00.0 Tachycardia, unspecified; D72.829 Elevated white blood cell count, unspecified; J44.9 Chronic obstructive pulmonary disease, unspecified; G89.29 Other chronic pain; K21.9 Gastro-esophageal reflux disease without esophagitis; M54.9 Dorsalgia, unspecified; Z87.19 Personal history of other diseases of the digestive system; E66.9 Obesity, unspecified; Z68.35 Body mass index [BMI] 35.0-35.9, adult; Z82.49 Family history of ischemic heart disease and other diseases of the circulatory system; Z87.891 Personal history of nicotine dependence
CPT/HCPCS: 36415; 71046; 74177; 80048; 80053; 81003; 83605; 83690; 85025; 86140; 87040; 90686; 96374; 96375; 99284; A9270-GY; J1644; J2270; J2405; J2543; Q9967

== ENCOUNTER 2019-10-29 13:17 | Emergency (ER) | payer MEDICARE ==
[2019-10-29 14:18] VITALS: BP 142/88
--- NOTE | 2019-10-29 14:22 | UC ---
Skin Complaint HPI - HPI Summary HPI Summary: 59 yo male presents with groin rash. He tells me that about a week ago he developed a red itchy rash to his right groin. This soon spread to his left groin. Around day 3 became more red and began to have a bad odor. He has been applying OTC goldbond and antibiotic cream with no change. Over the last 3 days rash has stayed about the same. Is very "raw" and is present on the posterior scrotum. Denies diabetes, fever, chills, or injury to the area. No urinary symptoms. - History of Current Complaint Chief Complaint: UCGU Time Seen by Provider: 10/29/19 14:21 Stated Complaint: PERSONAL Hx Obtained From: Patient Onset/Duration: Gradual Onset Onset Severity: Mild Current Severity: Moderate Pain Intensity: 8 Pain Scale Used: 0-10 Numeric - Allergy/Home Medications Allergies/Adverse Reactions: Allergies Allergy/AdvReac Type Severity Reaction Status Date / Time No Known Allergies Allergy Verified 10/29/19 14:11 PMH/Surg Hx/FS Hx/Imm Hx - Additional Past Medical History Additional PMH: [place]VADOR Cardiovascular History: Hypertension Respiratory History: COPD Other History Of: Negative For: Anticoagulant Therapy - Surgical History Surgical History: Yes Surgery Procedure, Year, and Place: fractured back; partial rotator cuff tear R shoulder; hernias (umbilical and inguinal) - Family History Known Family History: Positive: Other Negative: Cardiac Disease Family History: Diverticulitis(mother) - Social History Lives: With Family Alcohol Use: None Substance Use Type: None Smoking Status (MU): Former Smoker Type: Cigarettes Length of Time of Smoking/Using Tobacco: 30 Have You Smoked in the Last Year: No When Did the Patient Quit Smoking/Using Tobacco: 1996 - Immunization History Most Recent Influenza Vaccination: 07/24/19 Most Recent Tetanus Shot: 09/2015 Most Recent Pneumonia Vaccination: NONE Review of Systems All Other Systems Reviewed And Are Negative: No Constitutional: Positive: Negative Skin: Positive: Rash Respiratory: Positive: Negative Cardiovascular: Positive: Negative Neurovascular: Positive: Negative Neurological: Positive: Negative Psychological: Positive: Negative Physical Exam - Summary Physical Exam Summary: GENERAL: NAD. WDWN. No pain distress. SKIN: GROIN: B/L intertriginous groin with moderate erythema and odor. Raw appearing. Mild erythema and raw appearance to posterior scrotum. NTTP. No eschar or black appearance. No involvement of perineum. NECK: Supple. Nontender. No lymphadenopathy inguinal CHEST: No accessory muscle use. Breathing comfortably and in no distress. CV: Pulses intact. Cap refill <2seconds NEURO: Alert. PSYCH: Age appropriate behavior. Triage Information Reviewed: Yes Vital Signs: Initial Vital Signs Temp 98.7 F 10/29/19 14:12 Pulse 80 10/29/19 14:12 Resp 18 10/29/19 14:12 BP 142/88 10/29/19 14:12 Pulse Ox 97 10/29/19 14:12 Vital Signs Reviewed: Yes Course/Dx - Course Course Of Treatment: Suspect yeast infection. Discussed with Dr. Andrew and does not appear to be sherrill's or gangrenous at this time. Will rx for diflucan, nystatin powder, and doxycycline. Advised not to take oxycodone with diflucan -- pt states he rarely takes this anyway because it does not work. - Diagnoses Provider Diagnosis: Yeast infection of the skin Discharge ED - Sign-Out/Discharge Documenting (check all that apply): Patient Departure All imaging exams completed and their final reports reviewed: No Studies - Discharge Plan Condition: Stable Disposition: HOME Prescriptions: DOXYcycline CAP(*) [DOXYcycline 100MG CAP(*)] 100 mg PO BID #14 cap Fluconazole 150 MG TAB* [Diflucan 150 MG TAB*] 150 mg PO DAILY #7 tablet Nystatin TOP POWDER* 1 applic TOPICAL BID 7 Days #1 btl Patient Education Materials: Yeast Infection (ED) Referrals: Guzman Bowman MD [Primary Care Provider] - Additional Instructions: If you develop a fever, shortness of breath, chest pain, new or worsening symptoms - please call your PCP or go to the ED immediately. Your blood pressure was high at todays visit. Please see your primary provider within 4 weeks for recheck and re-evaluation. If you notice spreading rash or black area or increased pain or fever - please go to the ER immediately - Billing Disposition and Condition Condition: STABLE Disposition: Home
== END 2019-10-29 15:05 | disposition home or self-care (01) ==
LOC: UCEAST 13:17
DX: B37.2 Candidiasis of skin and nail (principal); I10 Essential (primary) hypertension; J44.9 Chronic obstructive pulmonary disease, unspecified; Z87.891 Personal history of nicotine dependence
CPT/HCPCS: 99212; G0463

== ENCOUNTER 2019-12-22 21:54 | Inpatient (IN) | payer MEDICARE, OTHER ==
[2019-12-22] MEDS ORDERED: Morphine 4 MG/ML VIAL (1 ml) 4 MG/ML VIAL IV ONE (22:18)
[2019-12-22] MEDS ORDERED: Ondansetron INJ* 2 MG/ML VIAL IV ONE (22:18)
--- NOTE | 2019-12-22 22:18 | ED ---
GI/ HPI - HPI Summary HPI Summary: 59-year-old male presents with abdominal pain for the past day. He states pain started on Monday. On Monday he was started on prescription for Cipro and Flagyl. Has a history of recurrent diverticulitis. He states that he was offered surgery last time but did not want to do so. last episode diverituclitis was 2 months ago. He admits to fever. Admits to nausea but no vomiting. Has had diarrhea for the past month. No blood in his stool. He had the diarrhea before he was on antibiotics. He denies any chest pain and states that his shortness breath is unchanged from normal with COPD. He denies any urinary symptoms. He states he has not had much of appetite. Has been drinking but not hasn't been eating. - History of Current Complaint Chief Complaint: EDAbdPain Time Seen by Provider: 12/22/19 22:08 Stated Complaint: ABD PAIN PER EMS Pain Intensity: 3 - Additional Pertinent History Primary Care Physician: WALTER - Allergy/Home Medications Allergies/Adverse Reactions: Allergies Allergy/AdvReac Type Severity Reaction Status Date / Time No Known Allergies Allergy Verified 12/22/19 22:07 Home Medications: Home Medications DOXYcycline CAP(*) [DOXYcycline 100MG CAP(*)] 100 mg PO BID #14 cap 10/29/19 [Rx ] Fluconazole 150 MG TAB* [Diflucan 150 MG TAB*] 150 mg PO DAILY #7 tablet [Rx] Nystatin TOP POWDER* 1 applic TOPICAL BID 7 Days #1 btl 10/29/19 [Rx] PMH/Surg Hx/FS Hx/Imm Hx Endocrine/Hematology History: Denies: Hx Anticoagulant Therapy, Hx Blood Disorders, Hx Blood Transfusions, Hx Bone Marrow Disease, Hx Diabetes, Hx Thyroid Disease, Hx Anemia, Hx Unexplained Bleeding Cardiovascular History: Reports: Hx Hypertension Respiratory History: Reports: Hx Chronic Bronchitis, Hx Chronic Obstructive Pulmonary Disease (COPD), Hx Pneumonia, Hx Seasonal Allergies, Hx Sleep Apnea - SALVADOR-non compliant with CPAP Denies: Hx Asthma GI History: Reports: Hx Gastroesophageal Reflux Disease Denies: Hx Cirrhosis, Hx Crohn's Disease, Hx Diverticulosis, Hx Gall Bladder Disease, Hx Gastrointestinal Bleed, Hx Ileostomy, Hx Ulcer History: Denies: Hx Benign Prostatic Hyperplasia, Hx Chronic Renal Failure, Hx Dialysis, Hx Kidney Infection, Hx Kidney Stones, Hx Renal Disease Musculoskeletal History: Reports: Hx Arthritis, Hx Back Problems - SPINAL INJ, SURGICAL REPAIR 2012 - burst fx lumbar vertebra, Hx Orthopedic Injury, Hx Scoliosis, Hx Tendonitis - Elbow Sensory History: Reports: Hx Contacts or Glasses Denies: Hx Hearing Aid Opthamlomology History: Reports: Hx Contacts or Glasses Neurological History: Reports: 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 titanium Denies: Hx Dementia, Hx Developmental Delay, Hx Headaches, Hx Migraine, Hx Nerve Disease Psychiatric History: Reports: Hx Anxiety, Hx Depression, Hx Bipolar Disorder, Hx Suicide Attempt Denies: Hx of Violent Episodes Against Others - Surgical History Surgery Procedure, Year, and Place: fractured back; partial rotator cuff tear R shoulder; hernias (umbilical and inguinal) Hx Anesthesia Reactions: No Infectious Disease History: No Infectious Disease History: Reports: History Other Infectious Disease - Spinal Meningitis at age 24yrs Denies: Hx Hepatitis, Hx Human Immunodeficiency Virus (HIV), Traveled Outside the [place] in Last 30 Days - Family History Known Family History: Positive: None, Other, Non-Contributory Negative: Cardiac Disease Family History: Diverticulitis(mother) - Social History Alcohol Use: None Hx Substance Use: No Substance Use Type: Reports: None Hx Tobacco Use: Yes - not currently Smoking Status (MU): Former Smoker Type: Cigarettes Length of Time of Smoking/Using Tobacco: 30 Have You Smoked in the Last Year: No Review of Systems Negative: Fever Positive: Nausea All Other Systems Reviewed And Are Negative: Yes Physical Exam Triage Information Reviewed: Yes Vital Signs On Initial Exam: Initial Vitals Temp Pulse Resp BP Pulse Ox 101.9 F 103 18 127/77 94 12/22/19 22:03 12/22/19 22:03 12/22/19 22:03 12/22/19 22:03 12/22/19 22:03 Vital Signs Reviewed: Yes Appearance: Positive: Well-Appearing Skin: Positive: Warm, Dry Head/Face: Positive: Normal Head/Face Inspection Eyes: Positive: Normal, Conjunctiva Clear ENT: Positive: Pharynx normal Respiratory/Lung Sounds: Positive: Clear to Auscultation, Breath Sounds Present Cardiovascular: Positive: Normal, RRR Abdomen Description: Positive: Soft, Other: - tenderness in LLQ, no rebound Bowel Sounds: Positive: Present Musculoskeletal: Positive: Normal Neurological: Positive: Normal Psychiatric: Positive: Normal Procedures - Sedation Patient Received Moderate/Deep Sedation with Procedure: No Diagnostics - Vital Signs Vital Signs Temp Pulse Resp BP Pulse Ox 12/22/19 22:14 100.8 F 12/22/19 22:03 101.9 F 103 18 127/77 94 - Laboratory Result Diagrams: 12/22/19 22:34 12/22/19 22:34 Lab Statement: Any lab studies that have been ordered have been reviewed, and results considered in the medical decision making process. - CT abd CT Interpretation Completed By: Radiologist Summary of CT Findings: 1. Colonic diverticulosis with evidence of acute diverticulitis at the junction of the descending colon and sigmoid colon short segment of colon with abnormally thickened [place] with associated mesenteric inflammation. Small amount of fluid in the inferior aspect the left pericolic gutter. No evidence of perforation. No associated abscess. 2. Patient is status post corpectomy of L2. Placement of a pedicular screw and posterior zehra device from T12-L4. Laminectomy from L1-L2 to L2-L3. Surgical construct is intact. 3. IVC filter in place which is appropriately position. Many of the legs protrude outside the [place]am of the IVC. Re-Evaluation - Re-Evaluation First Eval Re-Evaluation Time: 01:42 Change: Improved Comment: feeling better, pain improved GIGU Course/Dx - Course Course Of Treatment: 59-year-old male presents with abdominal pain for the past day. He states pain started on Monday. On Monday he was started on prescription for Cipro and Flagyl. Has a history of recurrent diverticulitis. He states that he was offered surgery last time but did not want to do so. last episode diverituclitis was 2 months ago. He admits to fever. Admits to nausea but no vomiting. Has had diarrhea for the past month. No blood in his stool. He had the diarrhea before he was on antibiotics. He denies any chest pain and states that his shortness breath is unchanged from normal with COPD. He denies any urinary symptoms. He states he has not had much of appetite. Has been drinking but not hasn't been eating. On exam tenderness the LLQ. Is febrile and tachycardic. wbc 13.7. lactic normal. crp elevated. urine shows no infection. CT shows diveriticulitis. no abscess or perforation. as patient is already on antibiotics while place on zosyn and admit as has failed outpatient. dr andrade agrees to admit. - Diagnoses Differential Diagnoses - Male: Diverticulitis, Colitis, Gastroenteritis ( Bacterial) Provider Diagnoses: Diverticulitis - Physician Notifications Discussed Care Of Patient With: sukhwinder Wooten ED - Sign-Out/Discharge Documenting (check all that apply): Patient Departure - Discharge Plan Condition: Stable Disposition: ADMITTED TO [facility] Referrals: Guzman Bowman MD [Primary Care Provider] - - Billing Disposition and Condition Condition: STABLE Disposition: Admitted to [facility]
[2019-12-22] MEDS: NS 0.9% 1000 ML** 2,000 ML IV ONE ×2 (22:41→22:42)
--- OUTSIDE RECORDS SUMMARY | 2019-12-22 22:44 | XMS REPORT | Continuity of Care Document ---
:1960 Author Organization [facility] Support Name Relationship Address Phone WILMER JACOBO child Unavailable DEEPAK JACOBO spouse [phone] [place] [address] Allergies and Intolerances No Known Drug Allergies Medications RxNorm Medication Dose Route Instructions Start Date End Date Status 19760603 Fluconazole 150 MG 150 mg oral orally daily (3 Active Oral Tablet days) 927310 Levofloxacin 750 750 mg oral orally daily Active MG Oral Tablet 063975 Miconazole Nitrate 1 applic topical topically 2 times Active 20 MG/ML Topical per day Cream Medications At Time Of Discharge RxNorm Medication Dose Route Instructions Start Date End Date Status 19760603 Fluconazole 150 MG 150 mg oral orally daily (3 Active Oral Tablet days) 502099 Levofloxacin 750 750 mg oral orally daily Active MG Oral Tablet 955560 Miconazole Nitrate 1 applic topical topically 2 times Active 20 MG/ML Topical per day Cream Problems No Data in the system Procedures No data in the system Results No data in the system Social History Code Code System Social History Description Dates Observed Observation 945178701 SNOMED CT Current Smoking Unknown if ever Status smoked UNK AdministrativeGender Sex Assigned At Unknown Vital Signs No data in the system Goals Section No data in the system Health Concerns No data in the systemEncounter Diagnosis Date Code Code System Diagnosis Status J18.1 ICD10 LOBAR PNEUMONIA UNS ORGANISM Active Advance Directives PT STATES NO ADVANCE DIRECTIVES Directive Type Effective Date Supervisor Gate Services Notes Supporting Document Name Address Phone No Directive Type 11/02/2019 4:56:00 Not Specified Not Specified Not Specified None No specified PM Encounters Encounter Diagnosis Location Date LOBAR PNEUMONIA UNS ORGANISM [facility] 11/02/2019 Family History Family history not obtained Functional Status No data in the system Immunizations No data in the system Medical Equipment No data in the system Mental Status No data in the system Assessment and Plan Assessments No data in the systemPlan Of Treatment No data in the systemPending Tests No data in the system Hospital Discharge Instructions No data in the system Reason for Visit No data in the system
--- OUTSIDE RECORDS SUMMARY | 2019-12-22 22:44 | XMS REPORT | Continuity of Care Document ---
:1960 Author Organization [facility] Support Name Relationship Address Phone WILMER JACOBO child Unavailable DEEPAK JACOBO spouse [phone] [place] [address] Allergies and Intolerances No Known Drug Allergies Medications RxNorm Medication Dose Route Instructions Start Date End Date Status 19760603 Fluconazole 150 MG 150 mg oral orally daily (3 Active Oral Tablet days) 470725 Levofloxacin 750 750 mg oral orally daily Active MG Oral Tablet 219530 Miconazole Nitrate 1 applic topical topically 2 times Active 20 MG/ML Topical per day Cream Medications At Time Of Discharge RxNorm Medication Dose Route Instructions Start Date End Date Status 19760603 Fluconazole 150 MG 150 mg oral orally daily (3 Active Oral Tablet days) 168601 Levofloxacin 750 750 mg oral orally daily Active MG Oral Tablet 174949 Miconazole Nitrate 1 applic topical topically 2 times Active 20 MG/ML Topical per day Cream Problems No Data in the system Procedures No data in the system Results No data in the system Social History Code Code System Social History Description Dates Observed Observation 301617961 SNOMED CT Current Smoking Unknown if ever Status smoked UNK AdministrativeGender Sex Assigned At Unknown Vital Signs No data in the system Goals Section No data in the system Health Concerns No data in the systemEncounter Diagnosis Date Code Code System Diagnosis Status J18.1 ICD10 LOBAR PNEUMONIA UNS ORGANISM Active Advance Directives PT STATES NO ADVANCE DIRECTIVES Directive Type Effective Date Batch Attendant Notes Supporting Document Name Address Phone No Directive Type 11/02/2019 4:56:00 Not Specified Not Specified Not Specified None No specified PM Encounters Encounter Diagnosis Location Date LOBAR PNEUMONIA UNS ORGANISM [facility] 11/02/2019 Family History Family history not [...]
--- OUTSIDE RECORDS SUMMARY | 2019-12-22 22:44 | XMS REPORT | Summary of Care ---
:1960 Author Organization [facility] Address [address] [address] Care Team Providers Name Role Phone Guzman Bowman Primary Care Provider Reason for Visit Reason Comments Transitional Care Management pt presents for TCM from admission to [facility] from 11/02/19-11/06/19 for pneumonia Encounter Details Date Type Department Care Team Description 11/12/2019 Office Visit [facility] Guzman Bowman MD Pneumonia due to organism (Primary Dx); Practice [address] [place]; [address] [place] [address] [place] [address] [phone] Allergies Active Allergy Reactions Severity Noted Date Comments Celecoxib 09/14/2007 "edema/rash" documented as of this encounter (statuses as of 11/24/2019) Medications Medication Sig Dispensed Refills Start Date End Date Status levofloxacin 0 11/06/2019 Active (LEVAQUIN) 750 MG Oral Tab fluconazole Take 1 Tab 7 Tab 0 11/12/2019 Active (DIFLUCAN) 100 MG by mouth Oral Tab DAILY. fluconazole Take 1 Tab 0 10/29/2019 11/12/2019 Discontinued (DIFLUCAN) 150 MG by mouth Oral Tab DAILY. documented as of this encounter (statuses as of 11/24/2019) Active Problems Problem Noted Date Chronic left-sided low back pain without sciatica 07/19/2018 RLS (restless legs syndrome) 02/17/2015 Back fracture 03/27/2012 Overview: L 2 02/18/12 SALVADOR (obstructive sleep apnea) 02/10/2011 Overview: Patient wears CPAP at 8 cm- company unknown Sleep-disordered breathing 05/31/2010 Overview: Replaced inactive diagnosis Chronic rhinitis 03/06/2010 GERD (gastroesophageal reflux disease) 02/25/2010 Fatty liver 02/25/2010 Pain in joint, ankle and foot 02/25/2010 OA (osteoarthritis) 02/25/2010 Insomnia 02/25/2010 Impotence of organic origin 08/13/2007 Contact dermatitis and other eczema, due to unspecified cause 07/27/2007 Recurrent major depressive disorder 05/29/2007 Unstable burst fracture of lumbar vertebra Overview: L2 s/p fusion T12-L4 had non union requiring revision of fusion T12-L4 with cage L1-L3 documented as of this encounter (statuses as of 11/24/2019) Resolved Problems Problem Noted Date Resolved Date Chronic obstructive pulmonary disease with acute 07/19/2018 08/05/2019 exacerbation Undersocialized conduct disorder, aggressive type, 05/29/2007 03/06/2010 unspecified BMI 30.0-30.9,adult 11/24/2019 Overview: This patient's BMI has been calculated and is above average, and BMI management plan is completed. General patient education discussion including: weight loss link to reduction of risk factors for cardiac and other diseases Unstable burst fracture of lumbar vertebra 08/06/2012 Overview: L2 s/p fusion T12-L4 documented as of this encounter (statuses as of 11/24/2019) Immunizations Name Administration Dates Next Due Influenza (IM) Preservative Free 07/19/2017, 08/25/2014 Influenza (IM) W/Pres 09/02/2015 TETANUS & DIPHTHERIA TOXOID (OVER 7 YRS) 02/23/2009 documented as of this encounter Social History Tobacco Use Types Packs/Day Years Used Date Former Smoker Cigarettes 1.5 25 Quit: 09/25/1996 Smokeless Tobacco: Never Used Alcohol Use Drinks/Week oz/Week Comments Not Currently Physical Activity Answer Date Recorded On average, how many days per week do you engage in moderate to 0 days 2018 strenuous exercise (like walking fast, running, jogging, dancing, swimming, biking, or other activities that cause a light or heavy sweat)? On average, how many minutes do you engage in exercise at this 0 min 2018 level? Stress Answer Date Recorded Do you feel stress - tense, restless, nervous, or anxious, Not at all 2018 or unable to sleep at night because your mind is troubled all the time - these days? Financial Resource Strain Answer Date Recorded How hard is it for you to pay for the very basics like Not hard at all 2018 food, housing, medical care, and heating? Food Insecurity Answer Date Recorded Within the past 12 months, you worried that your food would Never true 2018 run out before you got money to buy more. Within the past 12 months, the food you bought just didn't Never true 2018 last and you didn't have money to get more. Transportation Needs Answer Date Recorded In the past 12 months, has lack of transportation kept you from No 08/05/2019 medical appointments or from getting medications? In the past 12 months, has lack of transportation kept you from No 08/05/2019 meetings, work, or getting things needed for daily living? Sex Assigned at Date Recorded Not on file documented as of this encounter Last Filed Vital Signs Vital Sign Reading Time Taken Comments Blood Pressure 132/76 11/12/2019 3:10 PM EST Pulse 81 11/12/2019 3:10 PM EST Temperature 36.6 11/12/2019 3:10 PM C (97.8 EST F) Respiratory Rate - - Oxygen Saturation 93% 11/12/2019 3:10 PM EST Inhaled Oxygen Concentration - - Weight 122.2 kg (269 lb 6.4 oz) 11/12/2019 3:10 PM EST Height 185.4 cm (6' 1") 11/12/2019 3:10 PM EST Body Mass Index 35.54 11/12/2019 3:10 PM EST documented in this encounter Progress Notes Guzman Bowman MD - 11/12/2019 3:00 PM EST PATIENT: Miguel Dugan : 1960 DATE OF SERVICE: 11/12/2019 CHIEF COMPLAINT: Chief Complaint Patient presents with ? Transitional Care Management pt presents for TCM from admission to [facility] from 11/02/19-11/06/19 for pneumonia Subjective HISTORY OF PRESENT ILLNESS: Miguel Dugan is a 59-y.o. male. In for hospital follow up. TCM call was attempted but not made and it was late. Admitted 11/02 and discharged 11/06. Diagnosis was pneumonia . Patient has quite a few medical issues And admissions for breathing not to mention diverticulitis and chronic back pain After major trauma requiring surgery. 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 He was admitted , treated with levaquin duoneb and oxygen , symptoms improved , wbc to 11 Not hypoxic ambulating blood cx negative and fever broke In hospital K was low 3.4 and protein dropped Trop zero He is feeling ok since home, less SOB was not sent home on inhalers . Past Medical History: Diagnosis Date ? Ankle pain chronic- foot c/w synovitis/impingement [place] ? BMI 30.0-30.9,adult ? Bursitis of hip ? Chronic rhinitis 03/06/[address] sinus on [address] ? Contact dermatitis and other eczema, due to unspecified cause 07/27/2007 ? COPD (chronic obstructive pulmonary disease) (HCC) ? DDD (degenerative disc disease), cervical 2010 MR [facility] small insignificant herniations ? DDD (degenerative disc disease), lumbar MR [facility] small insignificant herniations ? Depressive disorder, not elsewhere classified 05/29/2007 ? Diverticula of colon ? Diverticulitis 08/05 ? Diverticulosis 11/24/11 rest negative .fu 10 years ? Fatty liver CT 2008 ? GERD (gastroesophageal reflux disease) EGD 2011 erosions in antrum bx - h pylori ? Impotence of organic origin 08/13/2007 ? Insomnia 02/25/2010 ? Lichen simplex chronicus ? OA (osteoarthritis) knees, back ? Pneumonia fall , amd 12/03 ? Presence of IVC filter never DVT ? Radiculitis of leg disabled left ? Rotator cuff tear s/p surgery Right ? S/P IVC filter ? Sleep disordered breathing 05/31/2010 rdi=19 8cm cpap ? Undersocialized conduct disorder, aggressive type, unspecified 05/29/2007 ? Unstable burst fracture of lumbar vertebra (HCC) 2012 L2 s/p fusion T12-L4 had non union requiring revision of fusion T12-L4 with cage L1-L3 Family History Problem Relation Age of Onset ? Emphysema Father ? Alzheimer's Disease Father ? Breast Cancer Paternal Aunt 80 ? Breast Cancer Unknown 59 ? Arthritis Mother ? GI Mother diverticulitis ? No Known Problems Daughter ? No Known Problems Son ? No Known Problems Son ? Anesth Problems No family history ? Cancer No family history ? Clotting Disorder No family history ? Diabetes No family history ? Heart Disease No family history ? Hypertension No family history ? Kidney Disease No family history ? Thyroid Disease No family history Current Outpatient Medications Medication Sig ? levofloxacin (LEVAQUIN) 750 MG Oral Tab No current facility-administered medications for this visit. Allergies Allergen Reactions ? Celebrex [Celecoxib] "edema/rash" Social History Socioeconomic History ? Marital status: Single Spouse name: Not on file ? Number of children: Not on file ? Years of education: Not on file ? Highest education level: Not on file Occupational History ? Not on file Social Needs ? Financial resource strain: Not hard at all ? Food insecurity Worry: Never true Inability: Never true ? Transportation needs Medical: No Non-medical: No Tobacco Use ? Smoking status: Former Smoker Packs/day: 1.50 Years: 25.00 Pack years: 37.50 Types: Cigarettes Last attempt to quit: 09/25/1996 Years since quittin.1 ? Smokeless tobacco: Never Used Substance and Sexual Activity ? Alcohol use: Not Currently ? Drug use: No ? Sexual activity: Yes Partners: Female Lifestyle ? Physical activity Days per week: 0 days Minutes per session: 0 min ? Stress: Not at all Relationships ? Social connections Talks on phone: Not on file Gets together: Not on file Attends cheondoism service: Not on file Active member of club or organization: Not on file Attends meetings of clubs or organizations: Not on file Relationship status: Not on file ? Intimate partner violence Fear of current or ex partner: Not on file Emotionally abused: Not on file Physically abused: Not on file Forced sexual activity: Not on file Other Topics Concern ? Back Care Not Asked ? Bike Helmet Not Asked ? Blood Transfusions Not Asked ? Caffeine Concern Not Asked ? Exercise Not Asked ? Hobby Hazards Not Asked ? International Travel Not Asked ? Service Not Asked ? Occupational Exposure Not Asked ? Seat Belt Not Asked ? Self-Exams Not Asked ? Sleep Concern Not Asked ? Special Diet Not Asked ? Stress Concern Not Asked ? Weight Concern Not Asked Social History Narrative Patient is employed [employer] . disability Over the last 2 weeks, have you been feeling down, depressed, anxious, or hopeless?: 0 Over the past 2 weeks, have you felt little interest or pleasure in doing things ?: 2 REVIEW OF SYSTEMS: Review of Systems Genitourinary: Had been having groin rash , He got diflucan and miconazole and he said it helped but coming back again Neurological: Positive for headaches (in hospital given percocet but had reaction so used fioricet and HERMOSILLO got better). Objective PHYSICAL EXAM: VITALS: BP 132/76 (BP Location: Left arm, Patient Position: Sitting) | Pulse 81 | Temp 97.8 F(36.6 C) | Ht 6' 1" (1.854 m) | Wt 269 lb 6.4 oz ( 122.2 kg) | SpO2 93% | BMI 35.54 kg/mBody mass index is 35.54 kg/m. Physical Exam Vitals signs reviewed. Constitutional: Appearance: He is not ill-appearing or diaphoretic. HENT: Mouth/Throat: Pharynx: Oropharynx is clear. Cardiovascular: Rate and Rhythm: Normal rate and regular rhythm. Pulmonary: Effort: Pulmonary effort is normal. No respiratory distress. Breath sounds: Normal breath sounds. No wheezing. Abdominal: General: There is no distension. Skin: Comments: Groin consistent with tinea , villegas lamp negative Neurological: General: No focal deficit present. Psychiatric: Comments: Dress and hygiene good Good eye contact Thoughts and speech normal Affect Boisterous Mood stable ASSESSMENT / IMPRESSION: ICD-9-CM ICD-10-CM 1. Pneumonia due to organism will finish antibiotics and needs 6 week follow up cxr and can do labs then too 486 J18.9 XR CHEST 2 VIEW PA AND LATERAL (STANDARD) 2. Tinea cruris will try extended diflucan , not appear to be bacterial 110.3 B35.6 Plan Author: Guzman Bowman MD 11/12/2019 15:16 documented in this encounter Plan of Treatment Date Type Specialty Care Team Description 12/25/2019 Lab Internal Medicine 12/25/2019 Ancillary Procedure Radiology Name Type Priority Associated Diagnoses Order Schedule XR CHEST 2 VIEW PA AND Imaging Routine Pneumonia due to Expected: 2019, LATERAL (STANDARD) organism Expires: 11/11/2020 BASIC METABOLIC PANEL Lab Routine Lipid screening Expected: 11/24/2019 (Approximate), Expires: 11/23/2020 LIPID PROFILE Lab Routine Lipid screening Expected: 11/24/2019 (Approximate), Expires: 11/23/2020 Health Maintenance Due Date Last Done Comments ZOSTER IMMUNIZATION SERIES (1 2011 of 2) LUNG CANCER SCREENING 2016 02/15/2011 DIABETES SCREENING 06/22/2018 06/22/2017, 09/02/2015, 02/12/2014 MEDICARE ANNUAL WELLNESS 08/15/2018 08/15/2017 VISIT LIPID DISORDER SCREENING 02/12/2019 02/12/2014, 12/07/2006 DTaP/Tdap/Td Vaccines (2 - 02/23/2019 02/23/2009 Tdap) DEPRESSION SCREENING 11/12/2020 11/12/2019 INFLUENZA VACCINE (#1) 2020 07/19/2017, Postponed from 05/26/2019 09/02/2015, (Patient refused) 08/25/2014 Colonoscopy 10/04/2027 10/04/2017, 11/24/2011 HEPATITIS C SCREENING Completed 12/07/2006 HEPATITIS A IMMUNIZATION Aged Out No longer eligible based SERIES on patient's age to complete this topic HPV IMMUNIZATION SERIES Aged Out No longer eligible based on patient's age to complete this topic MENINGOCOCCAL VACCINE IMM Aged Out No longer eligible based on patient's age to complete this topic PNEUMOCOCCAL 0-64 YRS Aged Out No longer eligible based on patient's age to complete this topic documented as of this encounter Goals Goal Patient Goal Associated Recent Patient-Stated? Author Type Problems Progress Depression Depression No tia Bowman (PHQ-9) MD Guzman total score < 5 Note: This is an individualized treatment (depression) goal for Miguel Dugan: Displayed above is your goal for a depression screening (PHQ-9) score that would indicate good control of your depression. Keep a regular sleep schedule Lifestyle No Guzman Bowman MD Note: This is an individualized lifestyle goal for Miguel Dugan: Please maintain a regular sleep schedule. This may help with some symptoms of depression. Keep immunizations current Lifestyle No Guzman Bowman MD Note: This is an individualized lifestyle goal for Miguel Dugan: Please be sure to keep up-to-date on recommended immunizations. For example, this would include a yearly influenza vaccine. Immunization status can be seen by looking at the Health Maintenance sections of your e[facility], Plan of Care, and any After Visit Summaries. Unit - lb < 220 Result Component No Guzman Bowman MD Take all prescribed medications as directed Self-management No Guzman Bowman MD Note: This is an individualized self-management goal for Miguel Dugan: Please take all prescribed medications as directed. 1. Do not skip doses. If you cannot afford your medications, talk with your doctor. 2. Use a pill reminder system such as a pill box if needed. Your pharmacist can help you with this. 3. Contact your Pharmacy 5 days before your medication runs out. If you cannot take your medications for any reasons, talk with your doctor. 4. Please bring all of your medication bottles and inhalers (or a list of all your medications/inhalers) with you to every visit. Potential barriers to meeting all of your care plan goals will continue to be addressed on an ongoing basis. documented as of this encounter Implants Implanted Type Area Forest Officer Device Shelf Model / Identifier Expiration Serial / Date Lot Vena Cava Filters-02/20/2012 Vena Cava MERIDIAN Implanted: 02/20/2012 (Quantity not on file) Filters BIOSCIENCE Description:IVC filter BARD meridian A patient with this implant can be scanned safely immediately after placement under the following conditions: -Static magnetic field of 3-Alia or 1.5-Alia -Spatial gradient magnetic field of 720-Gauss/cm -Maximum MR system reported [id number] specific absorption rate (PENG) of 2-W/kg in the normal operating mode In non-clinical testing, the [place] Filter produced a temperature rise of 2.2 C at a maximum MR system-reported whole body averaged specific absorption rate (PENG) of 3-W/kg for 15-minutes of continuous MR scanning in a 3-Alia MR system using a transmit/receive body coil (Apricot Tre[employer], Software documented as of this encounter Results Not on filedocumented in this encounter Visit Diagnoses Diagnosis Pneumonia due to organism Pneumonia due to other specified organism Tinea cruris Dermatophytosis of groin and perianal area Lipid screening Screening for lipoid disorders documented in this encounter Guarantor Name Account Type Relation to Date of Phone Billing Patient Address Miguel Dugan Personal/Family 1960 [id number] (Home) [phone] [facility] [place] ([place]) [id number] documented as of this encounter Advance Directives Type Date Recorded 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
--- OUTSIDE RECORDS SUMMARY | 2019-12-22 22:44 | XMS REPORT | Continuity of Care Document ---
:1960 Author Organization [facility] Support Name Relationship Address Phone WILMER JACOBO child Unavailable DEEPAK JACOBO spouse [phone] [place] [address] Allergies and Intolerances No Known Drug Allergies Medications RxNorm Medication Dose Route Instructions Start End Date Status Date 19760603 Fluconazole 150 150 mg oral orally daily (3 Active MG Oral Tablet days) 343942 Levofloxacin 750 750 mg oral orally daily Active MG Oral Tablet 272104 Miconazole 1 applic topical topically 2 times Active Nitrate 20 MG/ML per day Topical Cream 3640 Doxycycline 100 mg oral orally 2 times Completed per day 859514 Nystatin 100 1 applic topical topically daily Completed UNT/MG Topical Powder Medications At Time Of Discharge RxNorm Medication Dose Route Instructions Start Date End Date Status 19760603 Fluconazole 150 MG 150 mg oral orally daily (3 Active Oral Tablet days) 160547 Levofloxacin 750 750 mg oral orally daily Active MG Oral Tablet 262852 Miconazole Nitrate 1 applic topical topically 2 times Active 20 MG/ML Topical per day Cream Problems No Data in the system Procedures No data in the system Results Laboratory Results Order: CBC DIFF Specimen Source: Body Site : Legend: (G,H) = High, (GG,HH,CH,#H) = Above High Threshold, (#,L) = Low, (##, CL,#L,LL) = Below Low Threshold, (C,CC,CA,#A,A) = Abnormal LOINC Test Result Flag Range Units Date 1WBC 11.1 H 4.8-10.8 K/uL 11/03/2019 07:05 1RBC 4.71 4.60-6.20 M/uL 11/03/2019 07:05 1HEMOGLOBIN 14.4 13.5-18.0 gm/dL 11/03/2019 07:05 1HEMATOCRIT 44.1 41.0-53.0 % 11/03/2019 07:05 1MCV 93.7 80.0-100.0 fL 11/03/2019 07:05 1MCHC 32.7 30.0-36.5 % 11/03/2019 07:05 1MCH 30.6 27.0-34.0 pg 11/03/2019 07:05 1RDW 12.5 11.0-15.0 % 11/03/2019 07:05 1PLATELET 202 130-450 K/uL 11/03/2019 07:05 1MPV 9.9 6.0-12.0 fL 11/03/2019 07:05 1NE% 86 H 37-80 % 11/03/2019 07:05 1LY% 9 L 10-50 % 11/03/2019 07:05 1MO% 6 0-12 % 11/03/2019 07:05 1EO% 0 <=8 % 11/03/2019 07:05 1BA% 0 <=3 % 11/03/2019 07:05 1NE# 9.5 H 1.8-8.6 K/uL 11/03/2019 07:05 1LYMPH# 1.0 0.5-5.0 K/uL 11/03/2019 07:05 1MONO# 0.6 0.0-1.3 K/uL 11/03/2019 07:05 1EOS# 0.0 0.0-0.9 K/uL 11/03/2019 07:05 1BASO# 0.0 0.0-0.3 K/ul 11/03/2019 07:05 Performing Lab Footnotes:[facility] - [id number] - [address] [place] [address] SHAMAR BAPTISTED1 Order: COMPREHENSIVE PANEL Specimen Source: Body Site: Legend: (G,H) = High, (GG,HH,CH,#H) = Above High Threshold, (#,L) = Low, (##,CL,#L,LL) = Below Low Threshold, (C,CC,CA,#A,A) = Abnormal LOINC Test Result Flag Range Units Date 1SODIUM 137 136-145 mmol/L 11/03/2019 07:05 1POTASSIUM 3.4 L 3.5-5.2 mmol/L 11/03/2019 07:05 1CHLORIDE 105 100-108 mmol/L 11/03/2019 07:05 1CO2 25 21-32 mmol/L 11/03/2019 07:05 1GLUCOSE 119 H 70-100 mg/dL 11/03/2019 07:05 1BUN 16 7-21 mg/dL 11/03/2019 07:05 1CREATININE 1.1 0.6-1.3 mg/dL 11/03/2019 07:05 Interpretive Tosha: 1Normal Kidney Function or Mild Disease - GFR >OR= 60 Chronic Kidney Disease - GFR 15-59 Renal Failure - GFR < 15 GFR not calculated on patients under 18 years of age. Calculated (estimated) GFR is based on the MDRD Study equation, which assumes a steady state for creatinine. Estimated GFR may not be appropriate for medication dosing. 1CALCIUM 8.2 L 8.5-10.8 mg/dL 11/03/2019 07:05 1GFR >60 11/03/2019 07:05 1T BILI 0.5 0.0-1.2 mg/dL 11/03/2019 07:05 1T PROTEIN 5.9 L 6.4-8.2 gm/dL 11/03/2019 07:05 1ALBUMIN 3.4 3.4-4.8 gm/dL 11/03/2019 07:05 1ALK PHOS 43 40-150 U/L 11/03/2019 07:05 1ALT (SGPT) 38 0-55 U/L 11/03/2019 07:05 1AST (SGOT) 21 5-37 U/L 11/03/2019 07:05 Performing Lab Footnotes:[facility] - [id number] - [address] [place] [address] SHAMAR BAPTISTED1 Order: MAGNESIUM Specimen Source: Body Site: Legend: (G,H) = High, (GG, HH,CH,#H) = Above High Threshold, (#,L) = Low, (##,CL,#L,LL) = Below Low Threshold, (C,CC,CA,#A,A) = Abnormal LOINC Test Result Flag Range Units Date 1MAGNESIUM 1.7 1.7-2.6 mg/dL 11/03/2019 07:05 Performing Lab Footnotes:[facility] - [id number] - [address] [place] [address] SHAMAR Ovalle OLIVAD1 Order: CBC DIFF Man Diff Specimen Source: Body Site: Legend: (G,H) = High, (GG,HH,CH,#H) = Above High Threshold, (#,L) = Low, (##,CL,#L,LL) = Below Low Threshold, (C,CC,CA,#A,A) = Abnormal LOINC Test Result Flag Range Units Date 1WBC 24.4 H 4.8-10.8 K/uL 11/02/2019 11:55 1RBC 5.39 4.60-6.20 M/uL 11/02/2019 11:55 1HEMOGLOBIN 16.1 13.5-18.0 gm/dL 11/02/2019 11:55 1HEMATOCRIT 50.1 41.0-53.0 % 11/02/2019 11:55 1MCV 92.9 80.0-100.0 fL 11/02/2019 11:55 1MCH 29.9 27.0-34.0 pg 11/02/2019 11:55 1MCHC 32.2 30.0-36.5 % 11/02/2019 11:55 1RDW 12.5 11.0-15.0 % 11/02/2019 11:55 1PLATELET 246 130-450 K/uL 11/02/2019 11:55 1MPV 9.8 6.0-12.0 fL 11/02/2019 11:55 1MANUAL DIFFERENTIAL 1NEUTROPHIL 79 37-80 % 11/02/2019 11:55 1BANDS 12 % 11/02/2019 11:55 1LYMPHOCYTE 3 L 10-50 % 11/02/2019 11:55 1MONOCYTE 6 <=12 % 11/02/2019 11:55 Performing Lab Footnotes:[facility] - [id number] - [address] [place] [address] SHAMAR Ovalle RICCIOMD1 Order: COMPREHENSIVE PANEL Specimen Source: Body Site: Legend: (G,H) = High, (GG,HH,CH,#H) = Above High Threshold, (#,L) = Low, (##,CL,#L,LL) = Below Low Threshold, (C,CC,CA,#A,A) = Abnormal LOINC Test Result Flag Range Units Date 1SODIUM 137 136-145 mmol/L 11/02/2019 11:55 1POTASSIUM 3.9 3.5-5.2 mmol/L 11/02/2019 11:55 1CHLORIDE 104 100-108 mmol/L 11/02/2019 11:55 1CO2 24 21-32 mmol/L 11/02/2019 11:55 1GLUCOSE 106 H 70-100 mg/dL 11/02/2019 11:55 1BUN 20 7-21 mg/dL 11/02/2019 11:55 1CREATININE 1.1 0.6-1.3 mg/dL 11/02/2019 11:55 Interpretive Tosha: 1Normal Kidney Function or Mild Disease - GFR >OR= 60 Chronic Kidney Disease - GFR 15-59 Renal Failure - GFR < 15 GFR not calculated on patients under 18 years of age. Calculated (estimated) GFR is based on the MDRD Study equation, which assumes a steady state for creatinine. Estimated GFR may not be appropriate for medication dosing. 1CALCIUM 8.7 8.5-10.8 mg/dL 11/02/2019 11:55 1GFR >60 11/02/2019 11:55 1T BILI 0.9 0.0-1.2 mg/dL 11/02/2019 11:55 1T PROTEIN 6.8 6.4-8.2 gm/dL 11/02/2019 11:55 1ALBUMIN 3.9 3.4-4.8 gm/dL 11/02/2019 11:55 1ALK PHOS 49 40-150 U/L 11/02/2019 11:55 1ALT (SGPT) 52 0-55 U/L 11/02/2019 11:55 1AST (SGOT) 26 5-37 U/L 11/02/2019 11:55 Performing Lab Footnotes:[facility] - [id number] - [address] [place] [address] SHAMAR Ovalle CHARITY Order: TROPONIN I Specimen Source: Body Site: Legend: (G,H) = High, (GG ,HH,CH,#H) = Above High Threshold, (#,L) = Low, (##,CL,#L,LL) = Below Low Threshold, (C,CC,CA,#A,A) = Abnormal LOINC Test Result Flag Range Units Date 1TROPONIN I 0.01 0.00-0.04 ng/mL 11/02/2019 11:55 Interpretive Tosha: 1 TROPONIN INTERPRETATION 0.00 - 0.04 ng/ml Normal 0.05 - 0.29 ng/ml Jain Zone, Uncertain for AMI Greater than 0.30 ng/ml Suggestive of AMI Performing Lab Footnotes:[facility] - [id number] [place] [address] SHAMAR NASH Order: Influenza A&B PCR Specimen Source: Swab Body Site: Legend: (G,H) = High, (GG,HH,CH,#H) = Above High Threshold, (#,L) = Low, (##,CL,#L,LL) = Below Low Threshold, (C,CC,CA,#A,A) = Abnormal LOINC Test Result Flag Range Units Date 1INFLUENZA A PCR Not Detected Not Detected 11/02/2019 11:30 1INFLUENZA B PCR Not Detected Not Detected 11/02/2019 11:30 Performing Lab Footnotes:[facility] - [id number] [place] [address] SHAMAR NASH Microbiology Results w Susceptibilities Order: CULTURE BLOOD Specimen Source: Blood Body Site: BloodCultural Observations:Growth not [id number] Lab Footnotes:[facility] - [id number] [place] [address] SHAMAR AYALAOMIrma Order: CULTURE BLOOD Specimen Source: Blood Body Site: BloodCultural Observations:Growth not [id number] Lab Footnotes:[facility] - [id number] - [address] [place] [address] SHAMAR BAPTISTED1 Radiology Results Order: CHEST PORTABLE-SINGLEExam Completion Date:11/02/2019 11: 11:36 AM CHEST X-RAY CLINICAL INFORMATION: -- COUGH COMPARISON: None. PROCEDURE: A single frontal projection of the chest was obtained. FINDINGS: Tubes and Catheters: None. Central Airways: Normal. Lungs: Patchy right medial lower lung opacities. Pleura/Pleural space: Normal. Heart and Mediastinum: Normal. Additional Findings: No acute or aggressive osseous changes noted. Partially visualized posterior fixation hardware of the lumbar spine. IMPRESSION: Patchy right medial lower lung opacities. May represent atelectasis, superimposed infection difficult toentirely exclude. END OF IMPRESSION I have personally reviewed the images and the Resident's/Fellow's interpretation and agree with or edited the findings. [facility] submits Radiology results to [facility] and [facility] then provides those same results to [facility]. All results are available to [facility] and [facility] provider portal users.[facility] DICOM images are available to the [facility] provider portal usersonly. [facility] DICOM images are not available to the [facility] provider portalusers. There is no current [facility] cross-[facility] functionality allowing images to be available through the [facility] to [facility] connectivity. Interpreted By: Wilmer Tejeda M.D. Electronically signed By: Shadi Rodriguez M.D. Read By: SHADI RODRIGUEZ Date: 11/02/2019 12:03 Social History Code Code System Social History Observation Description Dates Observed 364461025 SNOMED CT Current Smoking Status Never smoker UNK AdministrativeGender Sex Assigned At Unknown Vital Signs Code Code System Vitals Value Date 8310-5 LOINC Body Temperature 97.6 [degF] 11/06/2019 8865-8 LOINC Pulse Rate 76 {beats}/min 11/06/2019 9279-1 LOINC Respiratory Rate 18 /min 11/06/2019 02845-3 LOINC O2% BldC Oximetry 96 % 11/06/2019 8480-6 LOINC BP Systolic 123 mm[Hg] 11/06/2019 8462-4 LOINC BP Diastolic 83 mm[Hg] 11/06/2019 8302-2 LOINC Height 73 [in_i] 11/02/2019 75543-7 LOINC Weight 121.81 kg 11/02/2019 3140-1 LOINC Body surface area Derived from formula 2.44 m2 11/02/2019 44838-8 LOINC BMI (Body Mass Index) 35.5 kg/m2 11/02/2019 Goals Section No data in the system Health Concerns No data in the systemEncounter Diagnosis Date Code Code System Diagnosis Status 530939228 SNOMED-CT Lobar pneumonia Active Advance Directives PT STATES NO ADVANCE DIRECTIVES Directive Type Effective Date Platform Consultant Notes Supporting Document Name Address Phone No Directive Type 11/02/2019 4:56:00 Not Specified Not Specified Not Specified None No specified PM Encounters Encounter Diagnosis Location Date Lobar pneumonia [facility] 11/02/2019 Family History Family history not obtained Functional Status Code Functional Condition Code System Date Status Independent adls SNOMED CT 11/02/2019 Active Appears well nourished/hydrated SNOMED CT 11/02/2019 Active Self care SNOMED CT 11/02/[address] 11/02/[address] 11/06/2019 Active Bathroom privileges SNOMED CT 11/06/[address] 11/06/[address] 11/06/2019 Active 4 - manage pain and encourage activity as SNOMED CT 11/06/2019 Active tolerated 3 - encourage active rom SNOMED CT 11/06/[address] 11/06/2019 Active 3 - include family in interventions SNOMED CT 11/05/[address] feed SNOMED CT 11/05/2019 Active Needs further teaching SNOMED CT 11/05/2019 Active 3 - encourage and assist as needed in SNOMED CT 11/06/2019 Active repositioning 3 - wedge foam cushion if oob SNOMED CT 11/05/2019 Active 314721866 Able to wash self SNOMED CT 11/05/2019 Active 806413715 Difficulty washing self SNOMED CT 11/04/2019 Active 992573522 Assisting with toileting (regime/therapy) SNOMED CT 11/04/2019 Active 222876125 Ability to verbalize understanding SNOMED CT 11/06/2019 Active (observable entity) Immunizations No data in the system Medical Equipment No data in the system Mental Status Code Cognitive Condition Code System Date Status Perrl SNOMED CT 11/02/2019 Active Oriented x [address] 11/02/2019 Active Mild distress SNOMED CT 11/02/[address] 11/02/2019 Active 811196778 No speech problem (situation) SNOMED CT 11/06/2019 Active 240540979 Firm pressure touch, function (observable SNOMED CT 11/04/2019 Active entity) 320398220 Orientated SNOMED CT 11/06/2019 Active 399619528 Mentally alert SNOMED CT 11/06/2019 Active 362471551 Oriented to time SNOMED CT 11/06/2019 Active 857873823 Oriented to time (finding) SNOMED CT 11/06/2019 Active [address]24 Oriented to place SNOMED CT 11/06/2019 Active 428106994 Oriented to place (finding) SNOMED CT 11/06/2019 Active 729922607 Oriented to person SNOMED CT 11/06/2019 Active Assessment and Plan Assessments No data in the systemPlan Of Treatment No data in the systemPending Tests No data in the system Hospital Discharge Instructions Discharge InstructionsDischarge DestinationDischarge to HomeDischarge DiagnosisPneumoniaFollow Up Appointmentf/u appointment in 1 week with PCPDiet at HomeregActivityAs ToleratedAll Personal Belongings, Valuables, Pre-Adm Meds Returned to Patient/FamilyyesMedicationsPrescriptions GivenNew Medication List Provided AbovePatients HOME MEDICATIONS returned to patient upon dischargeN/A Reason for Visit Reason for Visit COPD EXACERBATION RIGHT MIDDLE LOBE PNEUMONIA
--- OUTSIDE RECORDS SUMMARY | 2019-12-22 22:44 | XMS REPORT | Continuity of Care Document ---
:1960 Author Organization [facility] Support Name Relationship Address Phone WILMER JACOBO child Unavailable DEEPAK JACOBO spouse [address] [facility] [place] [address] Allergies and Intolerances No Known Drug Allergies Medications RxNorm Medication Dose Route Instructions Start Date End Date Status 19760603 Fluconazole 150 MG 150 mg oral orally daily (3 Active Oral Tablet days) 845712 Levofloxacin 750 750 mg oral orally daily Active MG Oral Tablet 147386 Miconazole Nitrate 1 applic topical topically 2 times Active 20 MG/ML Topical per day Cream Medications At Time Of Discharge RxNorm Medication Dose Route Instructions Start Date End Date Status 19760603 Fluconazole 150 MG 150 mg oral orally daily (3 Active Oral Tablet days) 564203 Levofloxacin 750 750 mg oral orally daily Active MG Oral Tablet 403072 Miconazole Nitrate 1 applic topical topically 2 times Active 20 MG/ML Topical per day Cream Problems No Data in the system Procedures No data in the system Results No data in the system Social History Code Code System Social History Description Dates Observed Observation 182606640 SNOMED CT Current Smoking Unknown if ever Status smoked UNK AdministrativeGender Sex Assigned At Unknown Vital Signs No data in the system Goals Section No data in the system Health Concerns No data in the systemEncounter Diagnosis Date Code Code System Diagnosis Status J18.1 ICD10 LOBAR PNEUMONIA UNS ORGANISM Active Advance Directives PT STATES NO ADVANCE DIRECTIVES Directive Type Effective Date Medical Oncology Physician Notes Supporting Document Name Address Phone No Directive Type 11/02/2019 4:56:00 Not Specified Not Specified Not Specified None No specified PM Encounters Encounter Diagnosis Location Date LOBAR PNEUMONIA UNS ORGANISM [facility] 11/02/2019 Family History Family history not [...]
--- OUTSIDE RECORDS SUMMARY | 2019-12-22 22:44 | XMS REPORT | Continuity of Care Document ---
:1960 Author Organization [facility] Support Name Relationship Address Phone WILMER JACOBO child Unavailable DEEPAK JACOBO spouse [address] [place] [address] Allergies and Intolerances No Known Drug Allergies Medications RxNorm Medication Dose Route Instructions Start Date End Date Status 19760603 Fluconazole 150 MG 150 mg oral orally daily (3 Active Oral Tablet days) 255689 Levofloxacin 750 750 mg oral orally daily Active MG Oral Tablet 275026 Miconazole Nitrate 1 applic topical topically 2 times Active 20 MG/ML Topical per day Cream Medications At Time Of Discharge RxNorm Medication Dose Route Instructions Start Date End Date Status 19760603 Fluconazole 150 MG 150 mg oral orally daily (3 Active Oral Tablet days) 543804 Levofloxacin 750 750 mg oral orally daily Active MG Oral Tablet 391835 Miconazole Nitrate 1 applic topical topically 2 times Active 20 MG/ML Topical per day Cream Problems No Data in the system Procedures No data in the system Results No data in the system Social History Code Code System Social History Description Dates Observed Observation 315471856 SNOMED CT Current Smoking Unknown if ever Status smoked UNK AdministrativeGender Sex Assigned At Unknown Vital Signs No data in the system Goals Section No data in the system Health Concerns No data in the systemEncounter Diagnosis Date Code Code System Diagnosis Status J18.1 ICD10 LOBAR PNEUMONIA UNS ORGANISM Active Advance Directives PT STATES NO ADVANCE DIRECTIVES Directive Type Effective Date 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
--- OUTSIDE RECORDS SUMMARY | 2019-12-22 22:44 | XMS REPORT | Continuity of Care Document ---
:1960 Author Organization [facility] Support Name Relationship Address Phone WILMER JACOBO child Unavailable DEEPAK JACOBO spouse [address] [facility] [place] [address] Allergies and Intolerances No Known Drug Allergies Medications RxNorm Medication Dose Route Instructions Start Date End Date Status 19760603 Fluconazole 150 MG 150 mg oral orally daily (3 Active Oral Tablet days) 131107 Levofloxacin 750 750 mg oral orally daily Active MG Oral Tablet 634390 Miconazole Nitrate 1 applic topical topically 2 times Active 20 MG/ML Topical per day Cream Medications At Time Of Discharge RxNorm Medication Dose Route Instructions Start Date End Date Status 19760603 Fluconazole 150 MG 150 mg oral orally daily (3 Active Oral Tablet days) 352558 Levofloxacin 750 750 mg oral orally daily Active MG Oral Tablet 307756 Miconazole Nitrate 1 applic topical topically 2 times Active 20 MG/ML Topical per day Cream Problems No Data in the system Procedures No data in the system Results No data in the system Social History Code Code System Social History Description Dates Observed Observation 025400430 SNOMED CT Current Smoking Unknown if ever Status smoked UNK AdministrativeGender Sex Assigned At Unknown Vital Signs No data in the system Goals Section No data in the system Health Concerns No data in the systemEncounter Diagnosis Date Code Code System Diagnosis Status J18.1 ICD10 LOBAR PNEUMONIA UNS ORGANISM Active Advance Directives PT STATES NO ADVANCE DIRECTIVES Directive Type Effective Date Dry Dip Worker Notes Supporting Document Name Address Phone No Directive Type 11/02/2019 4:56:00 Not Specified Not Specified Not Specified None No specified PM Encounters Encounter Diagnosis Location Date LOBAR PNEUMONIA UNS ORGANISM [facility] 11/02/2019 Family History Family history not obtained [...]
[2019-12-22 22:48] LABS: ABS Basophils 0.1 10^3/ul (0-0.2); ABS Lymphocytes 0.9 10^3/ul (1.0-4.8); ABS Monocytes 0.9 10^3/ul (0-0.8); ABS Neutrophils 11.8 10^3/ul (1.5-7.7); Eosinophil % 0.3 %; Hematocrit 46 % (42-52); Lymphocyte % 6.5 %; Mean Corpuscular HGB Conc 35 g/dL (31-36); Mean Corpuscular Hemoglobin 31 pg (27-31); Mean Corpuscular Volume 90 fL (80-94); Mean Platelet Volume 10.1 fL (7.4-10.4); Platelet Count 354 10^3/uL (150-450); Red Blood Count 5.14 10^6 /uL (4.18-5.48); Red Cell Distribution Width 14 % (10-15); White Blood Count 13.7 10^3/uL (3.5-10.8)
[2019-12-22 23:00] LABS: Albumin 3.7 g/dL (3.2-5.2); Albumin/Globulin Ratio 1.1 (1-3); BUN/Creatinine Ratio 13.3 (8-20); C Reactive Protein 101.24 mg/L (<8.01); EGFR African American 80.6 (>60); EGFR Non-African American 66.7 (>60); Globulin 3.4 g/dL (2-4); Potassium 3.7 mmol/L (3.5-5.0); Total Bilirubin 0.6 mg/dL (0.2-1.0); Total Protein 7.1 g/dL (6.4-8.9)
[2019-12-23] MEDS ORDERED: Iohexol 300* (CONTRAST) 10 ML SDV IV ONE (00:12)
[2019-12-23 00:16] LABS: Urine Appearance Clear; Urine Bilirubin Negative (Negative); Urine Blood Negative (Negative); Urine Color Yellow; Urine Glucose Negative (Negative); Urine Ketones Negative (Negative); Urine Nitrite Negative (Negative); Urine Protein Negative (Negative); Urine Specific Gravity 1.014 (1.010-1.030); Urine Urobilinogen Negative (Negative)
[2019-12-23] MEDS ORDERED: Piperacillin/Tazobac ADVAN(*) 3.375 GM in NS 0.9% 100 ML* 100 ML IVPB ONE (01:19)
[2019-12-23] MEDS ORDERED: Zosyn per Pharmacy* NOTE FOLLOW UP SCH (02:00)
[2019-12-23] MEDS ORDERED: Ondansetron INJ* 2 MG/ML VIAL IV PRN (02:07)
[2019-12-23] MEDS ORDERED: NS 0.9% 1000 ML** 1,000 ML IV SCH (02:15)
[2019-12-23] MEDS: Enoxaparin(*) 40 MG/0.4 ML SYR SUBCUT SCH (03:33)
--- NOTE | 2019-12-23 04:40 | HP ---
ADMISSION HISTORY AND PHYSICAL: DATE OF ADMISSION: 12/23/19 PRIMARY CARE PHYSICIAN: Dr. Bowman. PROVIDER: Lindsey Phipps NP ATTENDING PHYSICIAN: Dr. Hill.* (DICTATED BY LINDSEY PHIPPS NP) CHIEF COMPLAINT: Abdominal pain. HISTORY OF PRESENT ILLNESS: This is a 59-year-old male with a past medical history significant for diverticulosis, COPD and sleep apnea, who came to the emergency room on 12/22/19 for reports of abdominal pain starting on Monday, . On Monday, he emailed his provider and explained what was happening and was given a prescription for Cipro and Flagyl as the patient has dealt with the same problem in the past and was hospitalized in June of last year for the same problem. He stated that he has been having ongoing diarrhea, which he states has been present ever since he has had diverticulosis and it seems to be triggered by eating, particularly things like [place] food. He denies any melena in his stools. He said that Monday, he was working outside and started to feel worse and then on Monday morning, he developed a fever and nausea without vomiting. In the emergency room, CT scan was done, labs were drawn and hospitalists were asked to evaluate the patient for admission. PAST MEDICAL HISTORY: 1. COPD with no home oxygen. 2. Diverticulosis. 3. Chronic back pain secondary to back fracture. 4. Hypertension. 5. Sleep apnea, noncompliant with CPAP. 6. Pneumonia. 7. Restless leg syndrome. 8. Scoliosis. 9. Tendonitis. PAST SURGICAL HISTORY: 1. Back surgery. 2. Right rotator cuff repair. 3. Hernia repair. 4. IVC filter. 5. Tonsillectomy. HOME MEDICATIONS: None. ALLERGIES: None. FAMILY HISTORY: Mother had diverticulitis. SOCIAL HISTORY: Denies any tobacco or recreational substance use. Rarely drinks alcohol and is disabled. REVIEW OF SYSTEMS: A 12-point system review was performed, which was positive for fevers, nausea, abdominal pain, diarrhea, but negative for any chest pain, palpitations, shortness of breath, focal weakness. PHYSICAL EXAMINATION GENERAL: This is a well-developed, obese gentleman seen resting in the bed, in no acute distress. VITAL SIGNS: 97.9 Fahrenheit, 75 pulse, 20 respirations, 93% oxygen on room air and 121/76 blood pressure. HEENT: Conjunctivae pink and moist. PERRLA. EOMs intact. Oropharynx clear. Mucous membranes moist. NECK: Supple. RESPIRATORY: Lung sounds clear throughout bilaterally on room air. No accessory muscle use noted. CARDIAC: S1, S2 present. Heart rate regular. No murmurs, gallops or rubs appreciated. ABDOMEN: Large, soft, tender in the left lower quadrant with hyperactive bowel sounds x4. MUSCULOSKELETAL: No clubbing or cyanosis of the digits. Full range of motion. NEUROLOGIC: Sensation intact to light touch. Moving all extremities. SKIN: Intact without any no rashes or lesions. PSYCH: He is alert and oriented x4. Thought content organized. PERTINENT LAB DATA: WBC 13.7, glucose 126, lactic acid 1.0 and C-reactive protein 101.24. DIAGNOSTIC STUDIES: Abdomen and pelvis CT scan with contrast showed: 1. Colonic diverticulosis with evidence of acute diverticulitis at the junction of the descending colon and sigmoid colon showed segment of colon with abnormally thickened wall with associated mesenteric inflammation. Small amount of fluid in the inferior aspect of the left pericolic gutter. No evidence of perforation. No associated abscess. 2. The patient is status post corpectomy of L2, placement of a particular screw and posterior zehra device from T12 to L4. Laminectomy from L1 to L2 and L2 to L3. Surgical construct is intact. 3. IVC filter is placed, which is appropriately positioned, many of the legs protrude outside the higginbotham of the IVC. ASSESSMENT AND PLAN: My impression is that this is a 59-year-old male with past medical history significant for chronic obstructive pulmonary disease, diverticulosis and sleep apnea, who was admitted on 12/23/19 for sepsis secondary to diverticulosis. 1. Sepsis secondary to diverticulosis. Sepsis is as evidenced by initial temperature of 101.9 and heart rate of 103 and WBCs of 13.7. In the emergency room, he received a total of 3 L of normal saline and Zosyn as well as Zofran and morphine. He will continue to receive Zosyn, clear liquids and maintain hydration with normal saline at 75 mL an hour. 2. Chronic obstructive pulmonary disease. The patient does not take any inhalers at this time. 3. Hypertension. The patient is not treated at this time and blood pressures since arrival have been well controlled on average between 115 to 120s. 4. Sleep apnea. He states that he is noncompliant with his CPAP. Stated that he was getting tired of using the mask. May use 2 L oxygen at night while sleeping via nasal cannula. 5. DVT prophylaxis: Initiate Lovenox. 6. Code status: Full code. 7. Disposition : Admit OBV to [address] [place] [address]. 9. Condition: Guarded. TIME SPENT: Time spent on the patient is about 40 minutes with 20 of that spent face to face. LINDSEY PHIPPS, ASSISTANT ACTIVITIES DIRECTOR [id number]/CPS #: [id number] JASSI
[2019-12-23] MEDS: ZOSYN 3.375 GM Q8H per EXTENDED INFUSION IVPB SCH ×6 (05:23→22:12)
[2019-12-23 06:58] LABS: ABS Eosinophils 0.1 10^3/ul (0-0.6); ABS Neutrophils 7.5 10^3/ul (1.5-7.7); Eosinophil % 0.8 %; Hematocrit 49 % (42-52); Hemoglobin 16.6 g/dL (14.0-18.0); Lymphocyte % 10.2 %; Mean Corpuscular HGB Conc 34 g/dL (31-36); Mean Corpuscular Hemoglobin 31 pg (27-31); Mean Corpuscular Volume 93 fL (80-94); Mean Platelet Volume 9.4 fL (7.4-10.4); Platelet Count 283 10^3/uL (150-450); Red Blood Count 5.31 10^6 /uL (4.18-5.48); Red Cell Distribution Width 14 % (10-15); White Blood Count 9.6 10^3/uL (3.5-10.8)
[2019-12-23] MEDS: Ketorolac INJ* 30 MG/ML 1 ML VIAL IV PUSH PRN ×2 (09:19→20:05)
[2019-12-23] MEDS: Acetaminophen TAB* 325 MG PO PRN ×2 (09:22→15:41)
[2019-12-23] MEDS ORDERED: Albuterol/Ipratropium NEB.SOL* Albuterol 2.5 MG/Ipratropium 0.5 MG 3 ML INH PRN (11:39)
--- NOTE | 2019-12-23 11:41 | PN ---
Subjective Date of Service: 12/23/19 Interval History: Pt c/o LLQ pain x 1 week, was on Cipro/flagyl x 3 days prior to admission Pt also c/o chronic cough due to COPD-unchanged Objective Active Medications: Acetaminophen (Tylenol Tab*) 650 mg PO Q4H PRN PRN Reason: MILD PAIN or TEMP > 100.4 Last Admin: 12/23/19 09:22 Dose: 650 mg Albuterol/Ipratropium (Duoneb (Albuterol 2.5 Mg/Ipratropium 0.5 Mg)) 1 neb INH Q2H PRN PRN Reason: SOB/WHEEZING Enoxaparin Sodium (Lovenox(*)) 40 mg SUBCUT DAILY [facility] Last Admin: 12/23/19 03:33 Dose: 40 mg Piperacillin Sod/Tazobactam (Sod 3.375 gm/ Sodium Chloride) 100 mls @ 25 mls/ hr IVPB Q8H [facility] Last Admin: 12/23/19 05:23 Dose: 25 mls/hr Ketorolac Tromethamine (Toradol Inj*) 30 mg IV PUSH Q6H PRN PRN Reason: PAIN - MODERATE Ondansetron HCl (Zofran Inj*) 4 mg IV Q4H PRN PRN Reason: NAUSEA/VOMITING Pharmacy Consult (Zosyn Per Pharmacy*) 1 note FOLLOW UP .ZOSYN PER PHARMACY [facility] Vital Signs - 8 hr 12/23/19 12/23/19 12/23/19 03:47 08:00 08:13 Temperature 98.3 F Pulse Rate 80 Respiratory 20 17 17 Rate Blood Pressure 137/72 (mmHg) O2 Sat by Pulse 97 Oximetry 12/23/19 11:28 Temperature 98.3 F Pulse Rate 70 Respiratory 17 Rate Blood Pressure 129/68 (mmHg) O2 Sat by Pulse 94 Oximetry Oxygen Devices in Use Now: None Appearance: 59 yo M in nAD, AAOx3 Eyes: No Scleral Icterus, PERRLA Ears/Nose/Mouth/Throat: NL Teeth, Lips, Gums, Mucous Membranes Moist Neck: NL Appearance and Movements; NL JVP, Trachea Midline Respiratory: - - scant wheeze in RLL Cardiovascular: NL Sounds; No Murmurs; No JVD, RRR Abdominal: NL Sounds; No Tenderness; No Distention, - - soft , tender in LLQ, no rebound, no guarding, BS+ Lymphatic: No Cervical Adenopathy Extremities: No Edema Skin: No Rash or Ulcers, No Nodules or Sclerosis Neurological: Alert and Oriented x 3, NL Muscle Strength and Tone Result Diagrams: 12/23/19 06:32 12/22/19 22:34 Microbiology and Other Data: Microbiology 12/23/19 02:19 Stool Gross Appearance - Final Stool C. difficile DNA Amplification - Final 027 Presumptive NEGATIVE Toxigenic C.diff NEGATIVE Assess/Plan/Problems-Billing Assessment: 59 yo white male with PMHx hx of multiple previous episodes of diverticulitis, COPD, and chronic back pain presents to ED with abdominal pain. - Patient Problems (1) Diverticulitis Comment: -diverticulitis caused sepsis at admission -prior hx of diverticulitis in the past, at least 3 episodes -with microperforations and inflammation of bladder 08/2019 -symptomatically improved today, though still requiring pain medication -tolerating clear liquid diet -continue zosyn -will ask for gen surgery consult. Medical mgmt at this time. (2) COPD (chronic obstructive pulmonary disease) Comment: -Currently not in acute exacerbation -has not taken meds for several years -declined spiriva -will order prn duonebs (3) DVT prophylaxis Comment: lovenox Status and Disposition: OBV will be changed to inpatient
--- NOTE | 2019-12-23 15:50 | CONSULT ---
Consult Consult: Consult General Surgery Reason for Consult: Diverticulitis Chief Complaint: Fever LLQ Pain HPI:59 yo male with PMH of diverticulitis about once a year for the last four years, last seen here in June 2019 for this. At that time he was treated conservatively with IV ABX and clears, responded well. Last week he reported LLQ pain, Fever, was prescribed Cipro and Flagyl, he was responding well until yesterday when he again had fever, sweats, LLQ pain, came to ED, WBC was 13.7, T max 101.9. T current 98.3, WBC now 9.6. Comfortable at the time of my exam. PMH:Diverticulitis, GERD, COPD, Chronic Pain PSH:Lumbar x 2, Right Shouder, IVC Filter, Right Inguinal Hernia, Umbilical Hernia SOCIAL HX: TOB former ETOH occassional FAMILY HISTORY: family hx of diverticulitis, no hx of bleeding or anesthesia problems ALLERGIES: NKDA MEDICATIONS: not on blood thinners see attached MAR for regular home meds ROS: Other than as per HPI a 14 point Review of Systems was negative PHYSICAL EXAM: VS: Temp Pulse Resp BP Pulse Ox 98.3 F 70 17 129/68 94 12/23/19 11:28 12/23/19 11:28 12/23/19 11:28 12/23/19 11:28 12/23/19 11:28 HEENT: NCAT, EOMI, neck supple. Trachea in midline CHEST: CTA B/L CVS: RRR ABD: Obese mild tympany, non tender to palp, + BS's M/S: Moves extremities through a full range of motion, calves soft, non tender SKIN: no lesions NEURO:loop tender grossly normal PSYCH: AxO x 3 LABS: Laboratory Tests 12/22/19 12/22/19 12/23/19 22:34 22:34 06:32 WBC 13.7 H 9.6 C-Reactive Protein 101.24 H Results: PROCEDURE INFORMATION: Exam: CT Abdomen And Pelvis With Contrast Exam date and time: 12/23/2019 12:30 AM Age: 59 years old Clinical indication: Abdominal pain; Flank; Left lower quadrant (llq); Additional info: LLQ pain COMPARISON: A/P W CT ABD/PEL W 07/23/2019 3:08 PM FINDINGS: IMPRESSION: 1. Colonic diverticulosis with evidence of acute diverticulitis at the junction of the descending colon and sigmoid colon short segment of colon with abnormally thickened higginbotham with associated mesenteric inflammation. Small amount of fluid in the inferior aspect the left pericolic gutter. No evidence of perforation. No associated abscess. 2. Patient is status post corpectomy of L2. Placement of a pedicular screw and posterior zehra device from T12-L4. Laminectomy from L1-L2 to L2-L3. Surgical construct is intact. 3. IVC filter in place which is appropriately position. Many of the legs protrude outside the higginbotham of the IVC. ASSESSMENT:As Above, 59 yo male with acute diverticulitis without perforation, currently responding well to conservative management, IV Fluids,IV Abx (Zosyn), clear liquid diet PLAN:Continue observation and conservative non operative management at this time. We will continue to follow.
--- NOTE | 2019-12-23 18:51 | PN ---
Progress Note - Progress Note Date of Service: 12/23/19 Note: Patient seen and examined Care discussed with ASHLEY Woods CT reviewed He says he has had multiple episodes of diverticulitis over the years Says he has had several colonoscopies, I cannot find record here at [facility] Now feeling better Less abdominal pain and no fever WBC normal PEX:-abd is soft and non-distended. Bowel sounds present throughout. Mild tenderness LLQ without mass, rebound, guarding or peritoneal irritation. IMP: Sigmoid diverticulitis--CT shows very mild amount of inflammation proximal sigmoid colon, no abscess, fluid or extraluminal air He is improving-no indication for emergent/urgent surgical intervention at present Would continue IV abx and hopeful d/c on oral antibiotics With his history of multiple episodes, he may benefit from elective resection. Thanks, will follow
[2019-12-24 05:26] LABS: ABS Basophils 0.1 10^3/ul (0-0.2); ABS Eosinophils 0.1 10^3/ul (0-0.6); ABS Lymphocytes 0.9 10^3/ul (1.0-4.8); ABS Monocytes 0.7 10^3/ul (0-0.8); ABS Neutrophils 4.9 10^3/ul (1.5-7.7); Eosinophil % 2.2 %; Hematocrit 44 % (42-52); Hemoglobin 14.9 g/dL (14.0-18.0); Lymphocyte % 13.2 %; Mean Corpuscular HGB Conc 34 g/dL (31-36); Mean Corpuscular Hemoglobin 31 pg (27-31); Mean Corpuscular Volume 91 fL (80-94); Mean Platelet Volume 9.5 fL (7.4-10.4); Nucleated Red Blood Cells % 0.1; Platelet Count 265 10^3/uL (150-450); Red Blood Count 4.79 10^6 /uL (4.18-5.48); Red Cell Distribution Width 14 % (10-15); White Blood Count 6.7 10^3/uL (3.5-10.8)
[2019-12-24] MEDS: ZOSYN 3.375 GM Q8H per EXTENDED INFUSION IVPB SCH ×6 (05:47→22:05)
[2019-12-24 05:48] LABS: BUN/Creatinine Ratio 11.1 (8-20); Calcium 8.2 mg/dL (8.6-10.3); EGFR African American 93.9 (>60); EGFR Non-African American 77.6 (>60); Potassium 3.7 mmol/L (3.5-5.0)
--- NOTE | 2019-12-24 08:43 | PN ---
Subjective Date of Service: 12/24/19 Interval History: pt complains of LLQ pain and a mild frontal headache. Pt reports that he has not had any stools this AM which is an improvement. He reports chronic diarrhea for years. Pt denies any CP, SOB, Dizziness. A+Ox 3 Family History: Unchanged from Admission Social History: Unchanged from Admission Past Medical History: Unchanged from Admission Objective Active Medications: Acetaminophen (Tylenol Tab*) 650 mg PO Q4H PRN PRN Reason: MILD PAIN or TEMP > 100.4 Last Admin: 12/23/19 15:41 Dose: 650 mg Albuterol/Ipratropium (Duoneb (Albuterol 2.5 Mg/Ipratropium 0.5 Mg)) 1 neb INH Q2H PRN PRN Reason: SOB/WHEEZING Enoxaparin Sodium (Lovenox(*)) 40 mg SUBCUT DAILY [facility] Last Admin: 12/23/19 03:33 Dose: 40 mg Piperacillin Sod/Tazobactam (Sod 3.375 gm/ Sodium Chloride) 100 mls @ 25 mls/ hr IVPB Q8H [facility] Last Admin: 12/24/19 05:47 Dose: 25 mls/hr Ketorolac Tromethamine (Toradol Inj*) 30 mg IV PUSH Q6H PRN PRN Reason: PAIN - MODERATE Last Admin: 12/23/19 20:05 Dose: 30 mg Ondansetron HCl (Zofran Inj*) 4 mg IV Q4H PRN PRN Reason: NAUSEA/VOMITING Pharmacy Consult (Zosyn Per Pharmacy*) 1 note FOLLOW UP .ZOSYN PER PHARMACY [facility] Vital Signs - 8 hr 12/24/19 04:00 Temperature 98.9 F Pulse Rate 72 Respiratory 17 Rate Blood Pressure 115/62 (mmHg) O2 Sat by Pulse 94 Oximetry Oxygen Devices in Use Now: None Appearance: Overweight middle aged man laying in bed with feet elevated no apparent distress Ears/Nose/Mouth/Throat: NL Teeth, Lips, Gums, Clear Oropharnyx, Mucous Membranes Moist Neck: NL Appearance and Movements; NL JVP, Trachea Midline, No Thyroid Enlargement, Masses Respiratory: Symmetrical Chest Expansion and Respiratory Effort, Clear to Auscultation Cardiovascular: NL Sounds; No Murmurs; No JVD, RRR, No Edema Abdominal: No Hepatosplenomegaly, - - Tenderness with palpation LLQ. Hyperactive BSx4 quadrants Lymphatic: No Cervical Adenopathy Extremities: No Edema, No Clubbing, Cyanosis Skin: No Rash or Ulcers, No Nodules or Sclerosis Neurological: Alert and Oriented x 3, NL Sensation, NL Gait, NL Muscle Strength and Tone Result Diagrams: 12/24/19 05:11 12/24/19 05:11 Microbiology and Other Data: Microbiology 12/23/19 02:19 Stool Gross Appearance - Final Stool C. difficile DNA Amplification - Final 027 Presumptive NEGATIVE Toxigenic C.diff NEGATIVE Assess/Plan/Problems-Billing Assessment: 59 yo white male with PMHx hx of multiple previous episodes of diverticulitis, COPD, and chronic back pain presents to ED with abdominal pain. - Patient Problems (1) Diverticulitis Current Visit: No Status: Acute Comment: -No longer meets sepsis criteria, Temp 98.1, HR 77, WBC 6.7. Responding well to Zosyn, will continue -Reports Chronic diarrhea -prior hx of diverticulitis in the past, at least 3 episodes -with microperforations and inflammation of bladder 08/2019 -symptomatically improved today, though still requiring pain medication -tolerating clear liquid diet -Gen surgery consulted- potential to switch to PO abx (2) Hypertension Current Visit: No Comment: Normotensive off medications. (3) COPD (chronic obstructive pulmonary disease) Current Visit: No Comment: -Currently not in acute exacerbation -has not taken meds for several years -declined spiriva -will order prn duonebs (4) DVT prophylaxis Current Visit: No Status: Acute Code(s): XFV4200 - SNOMED Code(s): 302544857 Comment: lovenox Status and Disposition: OBV will be changed to inpatient
--- NOTE | 2019-12-24 08:45 | PN ---
Progress Note - Progress Note Date of Service: 12/24/19 SOAP: Subjective: NAD tolerating clears no nausea loose stools LLQ pain [] Objective: Vital Signs Temp 98.9 F 12/24/19 04:00 Pulse 72 12/24/19 04:00 Resp 17 12/24/19 04:00 BP 115/62 12/24/19 04:00 Pulse Ox 94 12/24/19 04:00 Intake & Output 12/23/19 12/24/19 12/24/19 18:59 06:59 18:59 Intake Total 1403 570 Output Total 1500 1300 Balance -97 -730 Intake: IV Fluids 953 310 ABX - ZOSYN 310 NS 953 Oral 450 260 Output: Urine 1500 1300 PEX GEN: NAD Chest:CTAB CVS: RRR Abd: obese, soft, + BS's, + Tender LLQ Ext: calves Soft non tender [] Assessment: 59 yo male with diverticulitis, responding well to conservative management, clears, IV ABX. [] Plan: continue conservative management, encouraged ambulation, clears, IV ABX, convert to PO for home. Suggest Augmentin x 2 weeks did not respond to cipro/flagyl d/w Dr Johnson []
[2019-12-24] MEDS: Enoxaparin(*) 40 MG/0.4 ML SYR SUBCUT SCH (09:03)
[2019-12-24] MEDS ORDERED: Influenza VAC *QUAD* 2019-20* 0.5 ML SYRINGE IM ONE (10:00)
[2019-12-24] MEDS: Acetaminophen TAB* 325 MG PO PRN (20:20)
[2019-12-25 05:40] LABS: Hematocrit 48 % (42-52); Hemoglobin 15.9 g/dL (14.0-18.0); Mean Corpuscular HGB Conc 33 g/dL (31-36); Mean Corpuscular Hemoglobin 31 pg (27-31); Mean Corpuscular Volume 92 fL (80-94); Red Cell Distribution Width 14 % (10-15); White Blood Count 8.2 10^3/uL (3.5-10.8)
[2019-12-25 06:10] LABS: ABS Basophils 0.1 10^3/ul (0-0.2); ABS Eosinophils 0.2 10^3/ul (0-0.6); ABS Lymphocytes 1.6 10^3/ul (1.0-4.8); ABS Monocytes 1.1 10^3/ul (0-0.8); ABS Neutrophils 5.3 10^3/ul (1.5-7.7); Eosinophil % 2.6 %; Large Platelets Present; Lymphocyte % 19.5 %; Mean Platelet Volume 10.2 fL (7.4-10.4); Nucleated Red Blood Cells % 0.1; Platelet Count 305 10^3/uL (150-450)
[2019-12-25] MEDS: ZOSYN 3.375 GM Q8H per EXTENDED INFUSION IVPB SCH ×2 (06:17)
[2019-12-25] MEDS: Enoxaparin(*) 40 MG/0.4 ML SYR SUBCUT SCH (08:23)
--- NOTE | 2019-12-25 09:35 | PN ---
Progress Note - Progress Note Date of Service: 12/25/19 Note: S: Reports he is feeling well, minimal LLQ pain. Tolerating clears, no nausea, emesis, fever, chills. Ambulating without issue. Passing BMs and flatus. O: Temp Pulse Resp BP Pulse Ox 97.8 F 68 16 107/59 95 12/25/19 07:40 12/25/19 07:40 12/25/19 07:40 12/25/19 07:40 12/25/19 07:40 Laboratory Last Values WBC 8.2 10^3/uL (3.5-10.8) 12/25/19 04:56 RBC 5.20 10^6 /uL (4.18-5.48) 12/25/19 04:56 Hgb 15.9 g/dL (14.0-18.0) 12/25/19 04:56 Hct 48 % (42-52) 12/25/19 04:56 MCV 92 fL (80-94) 12/25/19 04:56 MCH 31 pg (27-31) 12/25/19 04:56 MCHC 33 g/dL (31-36) 12/25/19 04:56 RDW 14 % (10-15) 12/25/19 04:56 Plt Count 305 10^3/uL (150-450) 12/25/19 04:56 MPV 10.2 fL (7.4-10.4) 12/25/19 04:56 Neut % (Auto) 64.3 % 12/25/19 04:56 Lymph % (Auto) 19.5 % 12/25/19 04:56 Story % (Auto) 13.0 % 12/25/19 04:56 Eos % (Auto) 2.6 % 12/25/19 04:56 Baso % (Auto) 0.6 % 12/25/19 04:56 Absolute Neuts (auto) 5.3 10^3/ul (1.5-7.7) 12/25/19 04:56 Absolute Lymphs (auto) 1.6 10^3/ul (1.0-4.8) 12/25/19 04:56 Absolute Monos (auto) 1.1 10^3/ul (0-0.8) H 12/25/19 04:56 Absolute Eos (auto) 0.2 10^3/ul (0-0.6) 12/25/19 04:56 Absolute Basos (auto) 0.1 10^3/ul (0-0.2) 12/25/19 04:56 Absolute Nucleated RBC 0.0 10^3/ul 12/25/19 04:56 Nucleated RBC % 0.1 12/25/19 04:56 Large Platelets Present 12/25/19 04:56 Sodium 135 mmol/L (135-145) 12/24/19 05:11 Potassium 3.7 mmol/L (3.5-5.0) 12/24/19 05:11 Chloride 105 mmol/L (101-111) 12/24/19 05:11 Carbon Dioxide 24 mmol/L (22-32) 12/24/19 05:11 Anion Gap 6 mmol/L (2-11) 12/24/19 05:11 BUN 11 mg/dL (6-24) 12/24/19 05:11 Creatinine 0.99 mg/dL (0.67-1.17) 12/24/19 05:11 Est GFR ( Amer) 93.9 (>60) 12/24/19 05:11 Est GFR (Non-Af Amer) 77.6 (>60) 12/24/19 05:11 BUN/Creatinine Ratio 11.1 (8-20) 12/24/19 05:11 Glucose 93 mg/dL (70-100) 12/24/19 05:11 Lactic Acid 1.0 mmol/L (0.5-2.0) 12/22/19 22:34 Calcium 8.2 mg/dL (8.6-10.3) L 12/24/19 05:11 Total Bilirubin 0.60 mg/dL (0.2-1.0) 12/22/19 22:34 AST 23 U/L (13-39) 12/22/19 22:34 ALT 39 U/L (7-52) 12/22/19 22:34 Alkaline Phosphatase 54 U/L (34-104) 12/22/19 22:34 C-Reactive Protein 101.24 mg/L (<8.01) H 12/22/19 22:34 Total Protein 7.1 g/dL (6.4-8.9) 12/22/19 22:34 Albumin 3.7 g/dL (3.2-5.2) 12/22/19 22:34 Globulin 3.4 g/dL (2-4) 12/22/19 22:34 Albumin/Globulin Ratio 1.1 (1-3) 12/22/19 22:34 Lipase 13 U/L (11.0-82.0) 12/22/19 22:34 Urine Color Yellow 12/22/19 23:56 Urine Appearance Clear 12/22/19 23:56 Urine pH 7.0 (5-9) 12/22/19 23:56 Ur Specific [place] 1.014 (1.010-1.030) 12/22/19 23:56 Urine Protein Negative (Negative) 12/22/19 23:56 Urine Ketones Negative (Negative) 12/22/19 23:56 Urine Blood Negative (Negative) 12/22/19 23:56 Urine Nitrate Negative (Negative) 12/22/19 23:56 Urine Bilirubin Negative (Negative) 12/22/19 23:56 Urine Urobilinogen Negative (Negative) 12/22/19 23:56 Ur Leukocyte Esterase Negative (Negative) 12/22/19 23:56 Urine Glucose Negative (Negative) 12/22/19 23:56 Intake and Output Last 24 Hours 12/23/19 12/24/19 12/25/19 12/26/19 06:59 06:59 06:59 06:59 Intake Total 2200 1973 1920 Output Total 400 2800 2820 Balance 1800 -827 -900 Weight 270 lb Intake: IV Fluids 2100 1263 ABX - ZOSYN 310 NS 953 Oral 095 203 5198 Output: Urine 400 2800 2820 Other: Estimated Void Large Date of Last Bowel t Movement # Bowel Movements 1 Estimated Stool Amount Medium # Voids 1 PEX General: Alert, in NAD. Integumentary: No rashes, jaundice, lesions. HEENT: Orpharynx clear. PERRLA. Heart: RRR, no MRG. Lungs: CTAB, no WRR. ABD: Soft, nondistended. BS present. Mild tenderness in LLQ. No guarding or rebound tenderness. Extremities: Calves soft and nontender. Distal pulses intact bilaterally. No edema. Assessment and plan: 59 yo M with diverticulitis, responded well to conservative management. Recommend discharge today with 2 weeks of augmentin BID.
[2019-12-25 11:29] VITALS: BP 140/79
--- NOTE | 2019-12-25 20:54 | DS ---
CC: Dr. Guzman Bowman * DISCHARGE SUMMARY: DATE OF ADMISSION: 12/23/19 DATE OF DISCHARGE: 12/25/19 PROVIDER: Connor Morfin NP. PRIMARY CARE PROVIDER: Dr. Guzman Bowman. ATTENDING PHYSICIAN: Dr. Cinthya Goyal * (dictated by Connor Morfin NP). PRIMARY DIAGNOSIS: Diverticulitis. SECONDARY DIAGNOSES: 1. Hypertension. 2. Chronic obstructive pulmonary disease. STUDIES WHILE IN THE HOSPITAL: 1. On 12/22/19, CT abdomen and pelvis with contrast, colonic diverticulosis with evidence of acute diverticulitis at the junction of the descending colon and sigmoid colon. Short segment of colon with abnormally thickened wall with associated mesenteric inflammation. Small amount of fluid in the inferior aspect of pericolic gutter. No evidence of perforation. No associated abscess. 2. The patient is status post corpectomy of L2, placement of a particular screw and posterior zehra device from T12 through L4. Laminectomy from L1 through L2 to L2 through L3. Surgical construct is intact. 3. IVC filter is in place, which is appropriately positioned, many of the legs protrude outside the hig[place] of the IVC. PERTINENT LABS WHILE IN THE HOSPITAL: WBC 8.2, HGB 15.9, HCT 48, PLT 305, NA 135, K 3.7, CHL 105, CO2 24, BUN 11, CR 0.99 CONSULTATIONS WHILE IN THE HOSPITAL: 1. ASHLEY Quiros. 2. Stuart Johnson MD. HISTORY OF PRESENT ILLNESS AND HOSPITAL COURSE: Mr. Dugan is a 59-year-old gentleman with past medical history of diverticulosis, COPD, hypertension, and sleep apnea, who came in to the emergency room on 12/22/19 for reports of abdominal pain starting on 12/16/19. He was started on antibiotics by PCP, Hugh and Flagyl, started on antibiotics on 12/18/19, without response. The patient came into the ER related to the worsening abdominal pain. CT was performed, revealed diverticulitis which the patient has significant history for. While in the hospital, the patient was started on Zosyn, which seemed to have very quick effect with reduction in abdominal pain. The following morning , 12/23/19, the patient reported left lower quadrant pain only by palpation. On initial presentation in the ER, the patient's CBC showed evidence of leukocytosis with white blood cell count 13.7, which steadily decreased throughout the stay along with decrease in abdominal pain. On 12/23/19, the patient's white blood cell count decreased to 9.6 and then again decreased to 6.7 on 12/24/19, with a slight elevation on 12/25/19 of 8.2; however, the patient remained stable without any worsening abdominal pain or fever. The patient was initially febrile 101.9. Fevers reduced to 97.9 by the morning of 12/23/19 after starting antibiotics, and the patient remained afebrile throughout the remainder of the stay. ASHLEY Alcala. was consulted regarding the patients case. ASHLEY Alcala felt that the patient could be managed conservatively on clear fluids, IV antibiotics, and then switch to p.o. antibiotics at home if pt exhibits continued improvement. The suggested antibiotic is Augmentin PO BID x 2 weeks as the patient did not respond to Cipro and Flagyl regimen by PCP. On the morning of 12/25/19, the patient showed continued improvement on the aforementioned medication regimen. It was decided that the patient is stable enough to be discharged home on p.o. Augmentin twice a day for 2 weeks. PHYSICAL EXAMINATION: Last set of vital signs: 97.9 temp, 63 heart rate, 16 respirations, 95% SpO2 on room air, and blood pressure 140/79. Mr. Dugan is a 59-year-old gentleman, obese, lying in bed, does not appear to be in any acute distress. Head is atraumatic, normocephalic. Eyes: EOMs are intact. Sclerae anicteric, not pale. Oral mucosa appears to be dry. No oropharyngeal erythema noted. Neck is supple. Lungs are clear to auscultation bilaterally. No wheezes, rales or rhonchi. Heart: S1, S2. Regular rate and rhythm. No murmurs, rubs or gallops. Abdomen is soft, round. Tenderness in the left lower quadrant to deep palpation and bowel sounds are present x4 quadrants. Extremities: Pulses are 2+ throughout, moving all with 5/5 strength. He is awake, alert, oriented x4. Pst Supervisor are equal. Tongue is midline. Speech is clear. No gross focal deficits, and skin is intact. Mr. Dugan is stable for discharge. DISCHARGE MEDICATIONS: Augmentin 875 mg p.o. b.i.d. x2 weeks. The patient is not currently prescribed any other medications. DISCHARGE PLAN: The patient is to call [facility] office at for an appointment as soon as possible after discharge. Diet should be low fiber diet for 1 to 2 weeks. Following discharge, foods include tender meat, poultry, fish, eggs, canned or well cooked vegetables, smooth peanut butter, milk, yogurt, cheese, fruits without nuts. After this period, increase fiber in your diet including daily fruits and vegetables. Make sure you are drinking water frequently after discharge. Please call the office as soon as possible if any of the following occur, sharp increasing pain or fever over 101 degrees orally. Activity: Do not drive car until all of your pain is gone and your energy level is normal. Make schedule to do something active at one point every day walking or stretching. Pain medication caution: Your pain medicine may contain a narcotic. This can cause drowsiness, constipation. Do not drink alcohol, drive the car, or work around machines while taking the medicine. Drink plenty of liquids to help with any constipation. You may use milk of magnesia to relieve constipation. Take your antibiotic Augmentin 1 tab in the morning and 1 tab in the evening for 2 weeks after discharge. If you have any questions or problems, please feel free to call the office at and talk to one of our doctors or nurses or answering services available 24 hours a day. DISCHARGE CONDITION: Stable. DISCHARGE DISPOSITION: Home. This is a summarized report of the patient's medical history and hospital stay. For further details, please see the entire medical record. TIME SPENT: Approximately 45 minutes was spent on this discharge. CONNOR MORFIN NP [id number]/[facility] #: [id number] JASSI
== END 2019-12-25 12:49 | disposition home or self-care (01) | DRG 872 ==
LOC: ED 21:54 → SSU 12-23 02:07 → OBSVTOIN 12-23 11:00
PROVIDERS: ADMIT Family Medicine; ATTEND Internal Medicine
DX: A41.9 Sepsis, unspecified organism (principal); K57.32 Diverticulitis of large intestine without perforation or abscess without bleeding; I10 Essential (primary) hypertension; J44.9 Chronic obstructive pulmonary disease, unspecified; G47.30 Sleep apnea, unspecified; M54.9 Dorsalgia, unspecified; G89.29 Other chronic pain; G25.81 Restless legs syndrome; M41.9 Scoliosis, unspecified; E66.9 Obesity, unspecified; Z83.79 Family history of other diseases of the digestive system; Z68.35 Body mass index [BMI] 35.0-35.9, adult; Z91.19 Patient's noncompliance with other medical treatment and regimen
CPT/HCPCS: 36415; 74177; 80048; 80053; 81003; 83605; 83690; 85025; 86140; 87040; 87045; 87046; 87493; 87899; 90686; 96365; 96375; 99285; A9270-GY; J1650; J1885; J2270; J2405; J2543; Q9967

== ENCOUNTER 2022-06-19 02:08 | Inpatient (IN) ==
[2022-06-19 03:03] LABS: ABS Basophils 0.1 10^3/ul (0-0.2); ABS Eosinophils 0.1 10^3/ul (0-0.6); ABS Lymphocytes 1.4 10^3/ul (1.0-4.8); ABS Monocytes 1.2 10^3/ul (0-0.8); ABS Neutrophils 12.7 10^3/ul (1.5-7.7); Eosinophil % 0.7 %; Hematocrit 48 % (42-52); Hemoglobin 15.8 g/dL (14.0-18.0); Mean Corpuscular HGB Conc 33 g/dL (31-36); Mean Corpuscular Hemoglobin 30 pg (27-31); Mean Corpuscular Volume 92 fL (80-94); Mean Platelet Volume 9.8 fL (7.4-10.4); Platelet Count 291 10^3/uL (150-450); Red Blood Count 5.21 10^6 /uL (4.18-5.48); Red Cell Distribution Width 14 % (10-15); White Blood Count 15.4 10^3/uL (3.5-10.8)
[2022-06-19 03:11] LABS: Activated Partial Thrombo Time 29.6 seconds (26.0-38.0); INR 1.01 (0.89-1.11)
[2022-06-19] MEDS ORDERED: Ondansetron 4 mg VIAL 2 MG/ML 2 ml VIAL IV ONE (03:21)
[2022-06-19] MEDS ORDERED: Lactated Ringers 1000 ml BAG 1,000 ML IV ONE (03:21)
[2022-06-19] MEDS ORDERED: Morphine 4 MG/ML VIAL (1 ml) IV ONE (03:21)
[2022-06-19 03:40] LABS: Albumin 4.1 g/dL (3.2-5.2); C Reactive Protein 15.15 mg/L (<8.01); Calcium 8.9 mg/dL (8.6-10.3); Direct Bilirubin 0.1 mg/dL (0.03-0.18); Globulin 2.1 g/dL (2-4); Indirect Bilirubin 0.7 mg/dL (0.3-1.0); Potassium 4.1 mmol/L (3.5-5.0); Total Bilirubin 0.8 mg/dL (0.2-1.0); Total Protein 6.2 g/dL (6.4-8.9); eGFR CKD-EPI 98.8 (>60)
[2022-06-19] MEDS ORDERED: Iohexol 350 (CONTRAST) 500 ML MDV IV ONE (03:48)
[2022-06-19 04:56] LABS: Urine Appearance Clear; Urine Bilirubin Negative (Negative); Urine Blood Negative (Negative); Urine Color Yellow; Urine Glucose Negative (Negative); Urine Ketones Negative (Negative); Urine Nitrite Negative (Negative); Urine Protein Negative (Negative); Urine Specific Gravity 1.014 (1.002-1.030); Urine Urobilinogen Negative (Negative)
[2022-06-19] MEDS ORDERED: HYDROmorphone 1 MG/1 ML SYRINGE IV ONE (05:41)
[2022-06-19] MEDS ORDERED: Piperacillin/Tazobac ADVAN 3.375 GM in NS 0.9% 100 ml BAG 100 ML IV ONE (05:42)
[2022-06-19] MEDS ORDERED: Ondansetron 4 mg VIAL 2 MG/ML 2 ml VIAL IV PRN (05:57)
[2022-06-19] MEDS ORDERED: Morphine 4 MG/ML VIAL (1 ml) IV PRN (05:59)
[2022-06-19] MEDS ORDERED: HYDROmorphone 0.5 MG/0.5 ML SYRINGE IV SLOW PU PRN (05:59)
[2022-06-19] MEDS ORDERED: NS 0.9% 1000 ml BAG 1,000 ML IV SCH (06:00)
[2022-06-19] MEDS ORDERED: Zosyn per Pharmacy NOTE FOLLOW UP SCH (06:00)
[2022-06-19] MEDS: Enoxaparin 40 MG/0.4 ML SYR SUBCUT SCH (06:51)
[2022-06-19] MEDS: Aspirin EC 81 mg TAB.EC (enteric coated) PO SCH (09:17)
[2022-06-19] MEDS ORDERED: ZOSYN 3.375 GM Q8H per EXTENDED INFUSION IV SCH (10:00)
[2022-06-19] MEDS: ZOSYN 3.375 GM Q8H per EXTENDED INFUSION IV SCH ×2 (14:14→22:51)
[2022-06-19] MEDS ORDERED: Senna TAB 8.6 mg TAB PO PRN (15:01)
[2022-06-19] MEDS ORDERED: Magnesium Hydroxide LIQ 30 ML UDC PO PRN (15:01)
[2022-06-19] MEDS ORDERED: Polyethylene Glycol 3350 17 GM PACKET PO PRN (15:01)
[2022-06-19 15:42] LABS: Hematocrit 53 % (42-52); Hemoglobin 17.2 g/dL (14.0-18.0); Mean Platelet Volume 10.3 fL (7.4-10.4); Platelet Count 259 10^3/uL (150-450)
[2022-06-20 06:25] LABS: ABS Basophils 0.1 10^3/ul (0-0.2); ABS Eosinophils 0.2 10^3/ul (0-0.6); ABS Lymphocytes 1.8 10^3/ul (1.0-4.8); ABS Neutrophils 6.8 10^3/ul (1.5-7.7); Eosinophil % 1.8 %; Hematocrit 45 % (42-52); Hemoglobin 14.9 g/dL (14.0-18.0); Lymphocyte % 17.8 %; Mean Corpuscular HGB Conc 33 g/dL (31-36); Mean Corpuscular Hemoglobin 31 pg (27-31); Mean Corpuscular Volume 93 fL (80-94); Mean Platelet Volume 10.2 fL (7.4-10.4); Platelet Count 240 10^3/uL (150-450); Red Blood Count 4.83 10^6 /uL (4.18-5.48); Red Cell Distribution Width 14 % (10-15); White Blood Count 9.9 10^3/uL (3.5-10.8)
[2022-06-20] MEDS: Enoxaparin 40 MG/0.4 ML SYR SUBCUT SCH (06:42)
[2022-06-20] MEDS: ZOSYN 3.375 GM Q8H per EXTENDED INFUSION IV SCH ×3 (06:42→21:48)
[2022-06-20 07:19] LABS: C Reactive Protein 96.49 mg/L (<8.01); Calcium 8.5 mg/dL (8.6-10.3); Potassium 4.4 mmol/L (3.5-5.0); eGFR CKD-EPI 88.3 (>60)
[2022-06-20] MEDS: Aspirin EC 81 mg TAB.EC (enteric coated) PO SCH (09:35)
[2022-06-21] MEDS: ZOSYN 3.375 GM Q8H per EXTENDED INFUSION IV SCH (06:00)
[2022-06-21] MEDS: Enoxaparin 40 MG/0.4 ML SYR SUBCUT SCH (06:00)
[2022-06-21 08:14] VITALS: BP 149/83
[2022-06-21] MEDS: Aspirin EC 81 mg TAB.EC (enteric coated) PO SCH (09:53)
== END 2022-06-21 11:45 | disposition home or self-care (01) | DRG 392 ==
LOC: ED 02:08 → EDHOLD 05:57 → SSU 10:57
PROVIDERS: ADMIT Student in an Organized Health Care Education/Training Program; ATTEND Student in an Organized Health Care Education/Training Program